=== PATIENT | male | born 2000 ===

== ENCOUNTER 2021-03-01 04:55 | Observation (INO) | payer MEDICAID, SELFPAY ==
[2021-03-01] VITALS (9 sets, daily range): BP systolic 111–136; BP diastolic 56–79; PULSE 62–84; RESP 16–19; TEMP 35.9–37.1; O2SAT 95–100; BMI 19.4; BMI 20.1
--- NOTE | ~2021-03-01 | CT_ITS ---
EXAMINATION: CT ABDOMEN AND PELVIS WITHOUT CONTRAST CLINICAL INFORMATION: Blood in stool COMPARISON: None TECHNIQUE: Multidetector volumetric imaging was performed from the superior aspect of the liver through the pubic symphysis. Sagittal and coronal reformatted images were obtained on the technologist's workstation. This CT examination was performed using dose optimization techniques as appropriate, variously including the following: *Automated exposure control *Adjustment of mA and/or kV according to patient size (this includes techniques or standardized protocols for targeted exams where dose is matched to indication/reason for exam; i.e. extremities or head) *Use of iterative reconstruction technique DLP: 327 mGy-cm FINDINGS: LUNG BASES: The visualized lung bases are unremarkable. LIVER, GALLBLADDER, AND BILIARY TREE: The liver is normal in size, shape, and attenuation. No focal hepatic lesion or biliary ductal dilatation is present. The gallbladder is unremarkable. PANCREAS: Unremarkable. SPLEEN: Unremarkable. ADRENAL GLANDS: Unremarkable. KIDNEYS AND URETERS: The kidneys are normal in size, shape, and attenuation. No hydronephrosis, hydroureter, or calculi seen. No perinephric stranding. BLADDER: Minimally distended and grossly unremarkable. GASTROINTESTINAL TRACT: Assessment for wall thickening in much of the colon from the hepatic flexure to the rectum is limited due to luminal collapse, though no significant pericolonic stranding is seen to strongly suggest a colitis. No evidence of bowel obstruction. No free fluid or free air is seen. ABDOMINAL WALL: No significant hernia is appreciated. LYMPH NODES: No lymphadenopathy is seen, though assessment is limited in the absence of intravenous contrast. VASCULAR: Unremarkable. PELVIC VISCERA: Unremarkable. OSSEOUS STRUCTURES: Unremarkable. CT/CT abdomen pelvis wo con IMPRESSION: Limited assessment for wall thickening in much of the colon due to luminal collapse; the possibility of a mild colitis therefore cannot be excluded. Otherwise, no acute findings identified in the abdomen/pelvis.
--- NOTE | 2021-03-01 05:34 | ED_ITS ---
HPI - Nausea/Vomiting/Diarrhea General Chief complaint: Nausea/Vomiting/Diarrhea Stated complaint: vomiting, diarrhea Time Seen by Provider: 03/01/21 05:32 Source: patient Mode of arrival: ambulatory Limitations: no limitations History of Present Illness HPI Narrative: 21-year-old male came in for evaluation of diarrhea and vomiting of black color. 21-year-old male woke up this morning with diarrhea patient describes it as a black color, and patient also had 1 episode of vomiting described as 1st was bloody then turned to black vomitus, patient is not taking any blood thinner, patient also declined alcohol abuse (only drinks socially), patient declined any recent travel, no recent antibiotic usage, no history of eating bad food, no sick contacts. Patient stated that yesterday he had headache had to take 2 Excedrin to relieve his headache. Related Data Allergies Allergy/AdvReac Type Severity Reaction Status Date / Time No Known Allergies Allergy Verified 03/01/21 05:41 [No Known Allergies*] Review of Systems Review of Systems: All other systems are reviewed and are negative Constitutional: Reports as per HPI and Reports no additional constitutional complaints Eyes: Reports as per HPI and Reports no additional eye complaints Reports system reviewed and no additional complaints, except as documented Cardiovascular: Reports as per HPI and Reports no additional cardiovascular complaints Respiratory: Reports as per HPI and Reports no additional respiratory complaints Gastrointestinal: Reports as per HPI and Reports no additional gastrointestinal complaints Genitourinary: Reports no additional female genitourinary complaints Musculoskeletal: Reports no additional musculoskeletal complaints Skin/Breast: Reports system reviewed and no additional complaints, except as docu Psychiatric: Reports no additional psychiatric complaints Endocrine: Reports no additional endocrine complaints Hematologic/Lymphatic: Reports no additional hematologic/lymphatic complaints Allergic/Immunologic: Reports no additional allergic/immunologic complaints Reports system reviewed and no additional complaints, except as documented and Reports Abnormal speech present [facility] Past Medical History Medical History (Updated 03/01/21 @ 06:54 by Flaca Tejada MD) Depression Social History Social History Advance Directives: No Advance Directives Information Provided: No Physical Exam Vital Signs: Vital Signs: Last Vital Signs Temp 98 F 03/01/21 05:39 Pulse 81 03/01/21 05:39 Resp 16 03/01/21 05:39 BP 114/58 L 03/01/21 05:39 Pulse Ox 98 03/01/21 05:39 Body Mass Index 20.1 Vital signs have been reviewed as appeared to be correct. Blood pressure normal. Heart rate normal. Respiration rate normal. Temperature normal. Oxygen saturation normal. Appearance: Alert. Oriented X3. No acute distress. Head: Normal external exam. Normocephalic. Atraumatic. No Ramirez signs noted. No raccoon eyes noted Eyes: PERRLA. EOMI. Conjunctiva and sclera normal. Eyelids normal. ENT: TM's Normal. Pharynx normal. Uvula midline. Moist mucous membranes. No trismus noted. No drooling noted. No muffled voice noted. Neck: Normal inspection. Neck supple. FROM. No adenopathy. Thyroid Normal. No m eningeal signs. No neck mass noted. CVS: Normal heart rate and rhythm. Heart sound normal. No murmurs noted. Pulses normal throughout. Respiratory: No respiratory distress. Painless inspiration. Breath sounds normal. No wheezes/rales/rhonchi noted. Chest nontender. No accessory muscle usage noted or decreased air movement noted. Abdomen: Soft and nontender. Bowel sounds normal in all 4 quadrants. No distention noted. No organomegaly noted. No visible injury noted. Rectal exam: Black stool guaiac positive Back: No CVA tenderness. Full range of motion noted. Skin: Skin warm and dry. Normal skin color. Normal skin turgor. No rashes/lesions/lacerations noted. Extremities: No lower extremity edema. Extremities exhibit normal range of motion. Extremities nontender. Neuro: Oriented X 3. No motor deficit. No sensory deficit. Reflexes normal. Course Course Course Narrative: Assessment and plan. 21-year-old male came in with rectal bleed (melena) patient was using Excedrin for headache yesterday. Mild anemia. Start the patient on Protonix, admit for further GI consultation, serial CBC. MDM - Nausea/Vomiting/Diarrhea Lab Data Attestation: I reviewed the patient's lab results. Result diagrams: 03/01/21 06:22 03/01/21 06:22 Labs: Lab Results 03/01/21 03/01/21 03/01/21 Range/Units 05:53 05:53 06:22 WBC 11.1 H (4.8-10.8) X10*3/uL RBC 4.91 (4.60-5.80) X10*6/uL Hgb 13.8 L (14.0-18.0) g/dl Hct 41.1 L (42-52) % MCV 83.7 (80-98) fL MCH 28.1 (27.0-33.0) pg MCHC 33.6 (31.0-36.0) g/dl RDW 13.0 (11.0-16.0) % Plt Count 304 (160-400) X10*3/uL MPV 9.2 L (9.4-12.4) fL Immature Gran % (Auto) 0.4 (0.0-0.4) % Neut % (Auto) 81.9 H (45-73) % Lymph % (Auto) 10.2 L (20-40) % [place] % (Auto) 6.7 (2-11) % Eos % (Auto) 0.5 (0-4) % Baso % (Auto) 0.3 (0-2) % Lymph # (Auto) 1.1 L (1.2-4.9) X10*3/uL [place] # (Auto) 0.8 (0.1-1.2) X10*3/uL Eos # (Auto) 0.1 (0.0-0.4) X10*3/uL Baso # (Auto) 0.0 (0.0-0.2) X10*3/uL Abs Immat Gran (auto) 0.05 H (0.00-0.03) X10*3/uL Absolute Neuts (auto) 9.1 H (2.0-8.3) X10*3/uL Absolute Nucleated RBC 0.000 (0.0-0.012) X10*3/uL Nucleated RBC % (auto) 0.0 (0.0-0.2) /100WBC Sodium (135-145) mmol/L Potassium (3.3-5.1) mmol/L Chloride (96-108) mmol/L Carbon Dioxide (22-29) mmol/L Anion Gap (12-20) BUN (9-16) mg/dL Creatinine (0.5-1.4) mg/dL Estim Creat Clear Calc Estimated GFR Random Glucose (60-115) mg/dL Calcium (8.4-10.2) mg/dL Total Bilirubin (0.0-1.0) mg/dL Direct Bilirubin (0.0-0.5) mg/dL AST (5-37) U/L ALT (0-40) U/L Alkaline Phosphatase (39-117) U/L Total Protein (6.5-8.0) g/dL Albumin (3.5-5.0) g/dL Lipase (8-78) U/L Urine Color YELLOW Urine Appearance CLEAR Urine pH 6.5 (5.0-8.0) Ur Specific [place] 1.020 (1.005-1.025) Urine Protein NEG (NEG-TRACE) MG/DL Urine Glucose (UA) NEG (NEG) MG/DL Urine Ketones >=80 (NEG) MG/DL Urine Blood NEG (NEG) Urine Nitrite NEG (NEG) Ur Leukocyte Esterase NEG (NEG) Stool Occult Blood POSITIVE (NEGATIVE) 03/01/21 Range/Units 06:22 WBC (4.8-10.8) X10*3/uL RBC (4.60-5.80) X10*6/uL Hgb (14.0-18.0) g/dl Hct (42-52) % MCV (80-98) fL MCH (27.0-33.0) pg MCHC (31.0-36.0) g/dl RDW (11.0-16.0) % Plt Count (160-400) X10*3/uL MPV (9.4-12.4) fL Immature Gran % (Auto) (0.0-0.4) % Neut % (Auto) (45-73) % Lymph % (Auto) (20-40) % [place] % (Auto) (2-11) % Eos % (Auto) (0-4) % Baso % (Auto) (0-2) % Lymph # (Auto) (1.2-4.9) X10*3/uL [place] # (Auto) (0.1-1.2) X10*3/uL Eos # (Auto) (0.0-0.4) X10*3/uL Baso # (Auto) (0.0-0.2) X10*3/uL Abs Immat Gran (auto) (0.00-0.03) X10*3/uL Absolute Neuts (auto) (2.0-8.3) X10*3/uL Absolute Nucleated RBC (0.0-0.012) X10*3/uL Nucleated RBC % (auto) (0.0-0.2) /100WBC Sodium 138 (135-145) mmol/L Potassium 4.3 (3.3-5.1) mmol/L Chloride 103 (96-108) mmol/L Carbon Dioxide 27 (22-29) mmol/L Anion Gap 12 (12-20) BUN 25 H (9-16) mg/dL Creatinine 0.78 (0.5-1.4) mg/dL Estim Creat Clear Calc 127.1 Estimated GFR > 60 Random Glucose 89 (60-115) mg/dL Calcium 9.5 (8.4-10.2) mg/dL Total Bilirubin 0.6 (0.0-1.0) mg/dL Direct Bilirubin 0.3 (0.0-0.5) mg/dL AST 22 (5-37) U/L ALT 26 (0-40) U/L Alkaline Phosphatase 48 (39-117) U/L Total Protein 7.3 (6.5-8.0) g/dL Albumin 4.3 (3.5-5.0) g/dL Lipase 20 (8-78) U/L Urine Color Urine Appearance Urine pH (5.0-8.0) Ur Specific [place] (1.005-1.025) Urine Protein (NEG-TRACE) MG/DL Urine Glucose (UA) (NEG) MG/DL Urine Ketones (NEG) MG/DL Urine Blood (NEG) Urine Nitrite (NEG) Ur Leukocyte Esterase (NEG) Stool Occult Blood (NEGATIVE) Imaging Data CT scan - abdomen: Radiologist's impression: Limited assessment for wall thickening in much of the colon due to luminal collapse; the possibility of a mild colitis therefore cannot be excluded. Otherwise, no acute findings identified in the abdomen/pelvis. Discharge Plan Discharge Clinical Impression: Melena Patient Disposition: Admitted As Inpatient
[2021-03-01 06:07] LABS: Glucose Urine UA NEG (NEG); Leukocyte Esterase Urine NEG (NEG); Nitrite Urine NEG (NEG); PH 6.5 (5.0-8.0); Urine Blood NEG (NEG); Urine Ketones >=80 MG/DL (NEG); Urine Protein NEG (NEG-TRACE)
[2021-03-01 06:08] LABS: OBS Int Ctl Valid YES; OBS1 POSITIVE (NEGATIVE)
[2021-03-01 06:09] LABS: Appearance Urine CLEAR; Color Urine YELLOW
[2021-03-01] MEDS: 0.9 % Sodium Chloride 1,000 ML 999 ML IVCONT (06:24)
[2021-03-01 06:28] LABS: Basophils Percent Auto 0.3 % (0-2); Eosinophils Absolute Auto 0.1 X10*3/uL (0.0-0.4); Eosinophils Percent Auto 0.5 % (0-4); Hematocrit 41.1 % (42-52); Hemoglobin 13.8 g/dl (14.0-18.0); Imm Gran Abs Auto 0.05 X10*3/uL (0.00-0.03); Imm Gran Pct Auto 0.4 % (0.0-0.4); Lymphocytes Absolute Auto 1.1 X10*3/uL (1.2-4.9); Lymphocytes Percent Auto 10.2 % (20-40); MANUAL DIFF FLAG NO; Mean Corpuscular HGB Conc 33.6 g/dl (31.0-36.0); Mean Corpuscular Hemoglobin 28.1 pg (27.0-33.0); Mean Corpuscular Volume 83.7 fL (80-98); Mean Platelet Volume 9.2 fL (9.4-12.4); Monocytes Absolute Auto 0.8 X10*3/uL (0.1-1.2); Monocytes Percent Auto 6.7 % (2-11); Neutrophils Absolute Auto 9.1 X10*3/uL (2.0-8.3); Neutrophils Percent Auto 81.9 % (45-73); Platelet Count 304 X10*3/uL (160-400); Red Blood Count 4.91 X10*6/uL (4.60-5.80); White Blood Count 11.1 X10*3/uL (4.8-10.8)
[2021-03-01 06:51] LABS: Alanine Aminotransferase 26 U/L (0-40); Albumin Level 4.3 g/dL (3.5-5.0); Alkaline Phosphatase 48 U/L (39-117); Anion Gap 12 (12-20); Aspartate Amino Transferase 22 U/L (5-37); Bilirubin Direct 0.3 mg/dL (0.0-0.5); Bilirubin Total 0.6 mg/dL (0.0-1.0); Blood Urea Nitrogen 25 mg/dL (9-16); Calcium 9.5 mg/dL (8.4-10.2); Carbon Dioxide 27 mmol/L (22-29); Chloride 103 mmol/L (96-108); Creatinine Clr Calc Pharmacy 127.1; Estimated Glomerular Filt Rate > 60; Glucose Random 89 mg/dL (60-115); Lipase 20 U/L (8-78); Potassium 4.3 mmol/L (3.3-5.1); Sodium 138 mmol/L (135-145); Total Protein 7.3 g/dL (6.5-8.0)
[2021-03-01] MEDS: Pantoprazole Sodium 40 MG/10 ML VIAL IVPUSH (07:18)
--- NOTE | 2021-03-01 07:43 | PC.NURSE ---
report taken from Moni POTTS. Pt in room, awake, resting comfortably. family at bed side. pt awaiting inpatient bed.
--- NOTE | 2021-03-01 08:13 | PM.IMHP ---
History of Present Illness Date of Service: 03/01/21 Chief Complaint: Diarrhea 21-year-old male with history of depression for which he takes sertraline. He is otherwise healthy. He come to the emergency room this morning because he has been having multiple episode of diarrhea at that he describes as a dark waterly stool with no associated abdiel blood, this is associated with nausea vomiting on multiple occasion--He has no pain. Yesterday he said he ate same things as rest of the family and no one else is sick. At some point he stated that he was vomiting so much that he started vomiting bright red blood. Workup in the ED has included a CT of the abdomen and pelvis which showed no evidence of a colitis. He has no sick contact, no recent travel and no recent use of antibiotics. His WBC is mildly elevated at 11. There is no fever he has not had any further episode of diarrhea since being in the emergency room. He has did say that he took some antidiarrhea medication although he is not able to tell me exactly what that is. His hemoglobin is 13.8. He has never had something like this before Review of Systems Review of Systems: Gen: no fever Resp: no sob, no cough CV: no chest, no ROBBINS, no leg edema GI: +n/v, no abd pain, diarhea Neuro: No confusion Yes all other systems are reviewed and are negative [facility] Medical History Depression Functional capacity: independent ambulation Pertinent family history: No family history of inflammatory bowel disease. Social History Advance Directives: No Advance Directives Information Provided: No Meds Allergies Allergy/AdvReac Type Severity Reaction Status Date / Time No Known Allergies Allergy Verified 03/01/21 05:41 [No Known Allergies*] Active Medications: Current Medications Generic Name Dose Route Start Last Admin Trade Name Freq PRN Reason Stop Dose Admin Pharmacy Consult 1 each 03/01/21 06:51 Consult Rx Perform Med Rec MISCELLANE ONCE PRN Consult order Home Medications Medication Instructions Recorded Confirmed Last Taken Type sertraline 1 tab PO DAILY 03/01/21 03/01/21 02/28/21 History Physical Exam Vital Signs and Narrative: Vital Signs: Last Vital Signs Temp 98 F 03/01/21 05:39 Pulse 84 06/01/21 07:17 Resp 16 03/01/21 07:43 BP 122/62 03/01/21 07:17 Pulse Ox 98 03/01/21 07:43 Body Mass Index 20.1 Const: Other: Constitutional Awake and Alert, No apparent distress HEENT tobithin nomral Neck Supple, No lymphadenopathy Cardiovascular RRR, No M/R/G, S1 S2, No S3 S4, No pedal edema Respiratory Lungs clear, No respiratory distress Gastrointestinal Non tender, Non-distended, rectal exam defered Skin No rash Neurological Alert & oriented x3 Psychological Appropriate affect Results Labs CBC and Chem 7: 03/01/21 06:22 03/01/21 06:22 Labs: Laboratory Results - last 24 hr 03/01/21 03/01/21 03/01/21 05:53 05:53 06:22 MCV 83.7 MCH 28.1 MCHC 33.6 RDW 13.0 Plt Count 304 MPV 9.2 L Immature Gran % (Auto) 0.4 Neut % (Auto) 81.9 H Lymph % (Auto) 10.2 L [place] % (Auto) 6.7 Eos % (Auto) 0.5 Baso % (Auto) 0.3 Lymph # (Auto) 1.1 L [place] # (Auto) 0.8 Eos # (Auto) 0.1 Baso # (Auto) 0.0 Abs Immat Gran (auto) 0.05 H Absolute Neuts (auto) 9.1 H Absolute Nucleated RBC 0.000 Nucleated RBC % (auto) 0.0 Anion Gap Estim Creat Clear Calc Estimated GFR Random Glucose Calcium Total Bilirubin Direct Bilirubin AST ALT Alkaline Phosphatase Total Protein Albumin Lipase Urine Color YELLOW Urine Appearance CLEAR Urine pH 6.5 Ur Specific [place] 1.020 Urine Protein NEG Urine Glucose (UA) NEG Urine Ketones >=80 Urine Blood NEG Urine Nitrite NEG Ur Leukocyte Esterase NEG Stool Occult Blood POSITIVE 03/01/21 06:22 MCV MCH MCHC RDW Plt Count MPV Immature Gran % (Auto) Neut % (Auto) Lymph % (Auto) [place] % (Auto) Eos % (Auto) Baso % (Auto) Lymph # (Auto) [place] # (Auto) Eos # (Auto) Baso # (Auto) Abs Immat Gran (auto) Absolute Neuts (auto) Absolute Nucleated RBC Nucleated RBC % (auto) Anion Gap 12 Estim Creat Clear Calc 127.1 Estimated GFR > 60 Random Glucose 89 Calcium 9.5 Total Bilirubin 0.6 Direct Bilirubin 0.3 AST 22 ALT 26 Alkaline Phosphatase 48 Total Protein 7.3 Albumin 4.3 Lipase 20 Urine Color Urine Appearance Urine pH Ur Specific [place] Urine Protein Urine Glucose (UA) Urine Ketones Urine Blood Urine Nitrite Ur Leukocyte Esterase Stool Occult Blood Imaging Radiologist's Impressions: Impressions Abdomen/Pelvis CT 03/01/21 05:32 IMPRESSION: Limited assessment for wall thickening in much of the colon due to luminal collapse; the possibility of a mild colitis therefore cannot be excluded. Otherwise, no acute findings identified in the abdomen/pelvis. Assessment and Plan (1) Melena: Status: Acute 29-year-old male with nausea vomiting and diarrhea positive occult blood and no evidence of a colitis on the CT scan. Differential diagnosis inflammatory bowel disease, food poisoning. Plan: Admit to observation, hydrate, repeat hemoglobin and hematocrit. Check ESR and CRP. Check C dif. Clear liquid diet. GI consult. Low risk for DVT , encourage ambulation. Continue sertraline for depression.
[2021-03-01] MEDS: Dextrose 5 % and 0.45 % NaCl 1,000 ML 100 ML IVCONT ×2 (10:29→20:53)
--- NOTE | 2021-03-01 12:30 | PC.NURSE ---
attempted to call [facility] for report on pt, no answer.
--- NOTE | 2021-03-01 14:15 | PM.GICN ---
History of Present Illness Data of Consult Service Date: 03/01/21 Requesting physician: Ken Khanna Primary Care Provider: Montse Brar DO HPI Reason for consult: melena 21-year-old male with history of depression being seen for assessment of hematemesis and GI symptoms He has several episodes of vomiting overnight with multiple episodes of dark colored diarrheal stools. He has nausea. He has no sick contacts, no recent travel and no recent use of antibiotics. denies fevers or chills he denied abdominal pain prior to this he was well and denied any symptoms no GERD or dsyphagia not taking nsaids or PPI CT of the abdomen and pelvis which showed no evidence of a colitis labs with borderline HGB Today at time of interview he says he feels well, and wants to eat, but no abdominal pain, still has black stool per his report. Review of Systems Review of Systems: Constitutional : No Weight loss, No Fever, No Chills ENT/Mouth : No sore throat, No Rhinorrhea Eyes: No Swelling, No Redness Cardiovascular : No Chest Pain, No SOB, No Edema Respiratory : No Cough, No Sputum, No Wheezing Gastrointestinal : see HPI Genitourinary : NO Dysuria, No Urinary Frequency, No Hematuria, No Urgency Musculoskeletal : No joint pain, No Myalgias, No Joint Swelling Skin : No Skin Lesions, No rash Neuro : No Weakness, No Numbness, No Dizziness, No Headache Psych : No Anxiety/Panic, No Depression Heme/Lymph: No Bruising, No Lymphadenopathy Endocrine : No Polyuria, No Polydipsia All other systems reviewed and are negative. [facility] Past Medical History Medical History Depression Functional capacity: independent ambulation Family History Pertinent family history: No family history of inflammatory bowel disease. Social History Social History Patient Tobacco Use Status: Never used Tobacco Smoked in Last 30 Days: No Use of substances other than those prescribed or required for medical reasons: Yes Substance Use Type: Marijuana Advance Directives: No Advance Directives Information Provided: No Meds Allergies Allergy/AdvReac Type Severity Reaction Status Date / Time No Known Allergies Allergy Verified 03/01/21 05:41 [No Known Allergies*] Active Medications: Current Medications Generic Name Dose Route Start Last Admin Trade Name Rosmery PRN Reason Stop Dose Admin Dextrose/Sodium Chloride 1,000 mls @ 100 mls/hr 03/01/21 11:00 03/01/21 10:29 D51/2ns IVCONT 100 mls/hr .Q10H BRUCE Administration Ondansetron HCl 4 mg 03/01/21 10:23 Ondansetron Hcl 4 Mg/2 Ml Vial IVPUSH Q8H PRN Nausea and Vomiting Pharmacy Consult 1 each 03/01/21 06:51 Consult Rx Perform Med Rec MISCELLANE ONCE PRN Consult order Sodium Chloride 3 ml 03/01/21 16:00 0.9 % Sodium Chloride Flush 3 Ml Syringe IVFLUSH QSHIFT BRUCE Zolpidem Tartrate 5 mg 03/01/21 10:23 Zolpidem Tartrate 5 Mg Tablet PO BEDTIME PRN Insomnia Home Medications Medication Instructions Recorded Confirmed Last Taken Type sertraline 1 tab PO DAILY 03/01/21 03/01/21 02/28/21 History Physical Exam Vital Signs: Vital Signs: Last Vital Signs Temp 97.6 F 03/01/21 13:53 Pulse 74 03/01/21 13:53 Resp 16 03/01/21 13:53 BP 136/77 03/01/21 13:53 Pulse Ox 98 03/01/21 13:53 Body Mass Index 20.1 Const: Other: Constitutional Awake and Alert, No apparent distress HEENT winthin normal limits, no anemia or redness of eyes Neck Supple, No lymphadenopathy Cardiovascular RRR, No M/R/G, S1 S2, No S3 S4, No pedal edema Respiratory Lungs clear, No respiratory distress Gastrointestinal Non tender, Non-distended, no masses or organomegaly, BS pos Skin No rash Neurological Alert & oriented x3 Psychological Appropriate affect Extrem: General: Yes normal to inspection Results Labs CBC & Chem 7: 03/01/21 06:22 03/01/21 06:22 Labs: Short CBC 03/01/21 Range/Units 06: WBC 11.1 H (4.8-10.8) X10*3/uL Hgb 13.8 L (14.0-18.0) g/dl Hct 41.1 L (42-52) % Plt Count 304 (160-400) X10*3/uL [facility] 03/01/21 06:22 Sodium 138 Potassium 4.3 Chloride 103 Carbon Dioxide 27 BUN 25 H Creatinine 0.78 Calcium 9.5 Liver Function 03/01/21 Range/Units 06:22 Total Bilirubin 0.6 (0.0-1.0) mg/dL Direct Bilirubin 0.3 (0.0-0.5) mg/dL AST 22 (5-37) U/L ALT 26 (0-40) U/L Alkaline Phosphatase 48 (39-117) U/L Albumin 4.3 (3.5-5.0) g/dL Urine 03/01/21 Range/Units 05:53 Urine Color YELLOW Urine Appearance CLEAR Urine pH 6.5 (5.0-8.0) Ur Specific [place] 1.020 (1.005-1.025) Urine Protein NEG (NEG-TRACE) MG/DL Urine Glucose (UA) NEG (NEG) MG/DL Imaging CT scan - abdomen: Attestation: I personally reviewed and interpreted this imaging study as follows: My impression: normal but without contrast, limiting visualization Assessment and Plan (1) Melena: Status: Acute (2) Hematemesis: Status: Acute 1/ Suspect he has gastroenteritis with MW tear and susequent melena, however he is very anxious about going home and not having further work up unless change in clinical condition, ddx: PUD, gastritis, dieulafoy lesions, esophagitis PLAN: 1/advance diet and let eat till midnight then NPO 2/ can use PPI in the interim 3/ transfuse if HGB <7 g/dl 4/ EGD tomorrow Procedures Date of Service Date of Service: 03/01/21
[2021-03-01 19:02] LABS: CDIFF Ag Negative (Negative); CDIFF Internal ctrl Dots and bkg OK (V); CDiff Toxin Negative (Negative)
[2021-03-01] MEDS: 0.9 % Sodium Chloride Flush 3 ML SYRINGE IVFLUSH (23:41)
[2021-03-02] VITALS (12 sets, daily range): BP systolic 84–128; BP diastolic 33–59; PULSE 62–80; RESP 14–18; TEMP 36–36.8; O2SAT 97–100
[2021-03-02] MEDS: Dextrose 5 % and 0.45 % NaCl 1,000 ML 100 ML IVCONT (06:05)
--- NOTE | 2021-03-02 08:46 | MHC.CM.PN ---
CM met with Patient and his Mother at bedside and addressed CHAVEZ, providing Patient with the original and placing a copy on the chart. Patient lives with his Parents and home/no services is the goal. CM has initiated and will follow for dc planning.
[2021-03-02 10:49] LABS: COVID-19 Test Negative (Negative)
--- NOTE | 2021-03-02 12:05 | P.CONAN_ITS ---
[facility] Active Problems Active Problems: All Active Problems (Updated 03/01/21 @ 16:34 by Cathy Coleman MD) Hematemesis (Acute) Melena (Acute) Past Medical History Medical History Depression Functional capacity: independent ambulation Social History Social History Patient Tobacco Use Status: Never used Tobacco Smoked in Last 30 Days: No Use of substances other than those prescribed or required for medical reasons: Yes Substance Use Type: Marijuana Substance Use Frequency: Daily Are you DNR?: No Advance Directives: No Advance Directives Information Provided: No service: No Current occupational status: employed Meds Allergies Allergy/AdvReac Type Severity Reaction Status Date / Time No Known Allergies Allergy Verified 03/01/21 05:41 [No Known Allergies*] Active Medications: Current Medications Generic Name Dose Route Start Last Admin Trade Name Freq PRN Reason Stop Dose Admin Dextrose/Sodium Chloride 1,000 mls @ 100 mls/hr 03/01/21 11:00 03/02/21 06:05 D51/2ns IVCONT 100 mls/hr .Q10H BRUCE Administration Ondansetron HCl 4 mg 03/01/21 10:23 Ondansetron Hcl 4 Mg/2 Ml Vial IVPUSH Q8H PRN Nausea and Vomiting Pharmacy Consult 1 each 03/01/21 06:51 Consult Rx Perform Med Rec MISCELLANE ONCE PRN Consult order Sodium Chloride 3 ml 03/01/21 16:00 03/02/21 08:05 0.9 % Sodium Chloride Flush 3 Ml Syringe IVFLUSH Not Given QSHIFT BRUCE Zolpidem Tartrate 5 mg 03/01/21 10:23 Zolpidem Tartrate 5 Mg Tablet PO BEDTIME PRN Insomnia Home Medications Medication Instructions Recorded Confirmed Last Taken Type sertraline 1 tab PO DAILY 03/01/21 03/01/21 02/28/21 History Exam Exam Date and Time: March 02, 2021 1205 Height,Weight and Vital Signs: Height 5 ft 8 in Weight 60 kg Last Vital Signs Temp 97.4 F 03/02/21 11:17 Pulse 70 03/02/21 11:17 Resp 16 03/02/21 11:17 BP 112/57 L 03/02/21 11:17 Pulse Ox 100 03/02/21 11:17 Pertinent Lab Results Pertinent Lab Results: Laboratory Tests 03/01/21 03/01/21 03/01/21 05:53 05:53 06:22 WBC 11.1 H RBC 4.91 Hgb 13.8 L Hct 41.1 L MCV 83.7 MCH 28.1 MCHC 33.6 RDW 13.0 Plt Count 304 MPV 9.2 L Immature Gran % (Auto) 0.4 Neut % (Auto) 81.9 H Lymph % (Auto) 10.2 L Rains % (Auto) 6.7 Eos % (Auto) 0.5 Baso % (Auto) 0.3 Lymph # (Auto) 1.1 L Rains # (Auto) 0.8 Eos # (Auto) 0.1 Baso # (Auto) 0.0 Abs Immat Gran (auto) 0.05 H Absolute Neuts (auto) 9.1 H Absolute Nucleated RBC 0.000 Nucleated RBC % (auto) 0.0 Sodium Potassium Chloride Carbon Dioxide Anion Gap BUN Creatinine Estim Creat Clear Calc Estimated GFR Random Glucose Calcium Total Bilirubin Direct Bilirubin AST ALT Alkaline Phosphatase Total Protein Albumin Lipase Urine Color YELLOW Urine Appearance CLEAR Urine pH 6.5 Ur Specific [place] 1.020 Urine Protein NEG Urine Glucose (UA) NEG Urine Ketones >=80 Urine Blood NEG Urine Nitrite NEG Ur Leukocyte Esterase NEG Stool Occult Blood POSITIVE C. difficile Toxin A&B C. difficile Antigen C. difficile Interpret COVID-19 ([facility]) COVID-19 Clin Com 03/01/21 03/01/21 03/02/21 06:22 Unknown 10:20 WBC RBC Hgb Hct MCV MCH MCHC RDW Plt Count MPV Immature Gran % (Auto) Neut % (Auto) Lymph % (Auto) Rains % (Auto) Eos % (Auto) Baso % (Auto) Lymph # (Auto) Rains # (Auto) Eos # (Auto) Baso # (Auto) Abs Immat Gran (auto) Absolute Neuts (auto) Absolute Nucleated RBC Nucleated RBC % (auto) Sodium 138 Potassium 4.3 Chloride 103 Carbon Dioxide 27 Anion Gap 12 BUN 25 H Creatinine 0.78 Estim Creat Clear Calc 127.1 Estimated GFR > 60 Random Glucose 89 Calcium 9.5 Total Bilirubin 0.6 Direct Bilirubin 0.3 AST 22 ALT 26 Alkaline Phosphatase 48 Total Protein 7.3 Albumin 4.3 Lipase 20 Urine Color Urine Appearance Urine pH Ur Specific [place] Urine Protein Urine Glucose (UA) Urine Ketones Urine Blood Urine Nitrite Ur Leukocyte Esterase Stool Occult Blood C. difficile Toxin A&B Negative C. difficile Antigen Negative C. difficile Interpret SEE NOTE COVID-19 ([facility]) Negative COVID-19 Clin Com See Note Airway Mallampati Class: II TM Dist: >3cm Neck ROM: Full Heart: RRR Lungs: CTA Assessment and Plan Assessment Anesthesia Assessment: Anesthesia Plan Discussed and Chart Reviewed Final Anesthetic Review NPO: Yes ASA Class: II Final Preanesthetic Review: No Changes in Pt Med Stat and Consent Obtained/Reviewed Patient Risk: Intermediate Procedure Risk: Intermediate Anesthetic Plan Anesthetic Plan: MAC: Disposition: Standard PACU
--- NOTE | 2021-03-02 12:15 | MHC.SHP ---
Pre-Procedural Eval Section A The patient is an INPATIENT: Yes The History & Physical has been completed within 30 days and I have reviewed it.: Yes Section B Chief Complaint: GIB Allergies: Allergies Allergy/AdvReac Type Severity Reaction Status Date / Time No Known Allergies Allergy Verified 03/01/21 05:41 [No Known Allergies*] Plan Diagnosis/Plan: Unchanged I have reviewed the history and physical and performed a pertinent physical examination on my patient. No changes have occurred unless specified.
--- NOTE | 2021-03-02 12:16 | PM.OP ---
Brief Operative Note Date of Service: 03/02/21 Pre-op diagnosis: melena, nausea, vomiting Post-op diagnosis: same Procedure: see op note Surgeon: Cathy Coleman MD Anesthesia: MAC Was an Computer Aided Design Operator used for this Procedure?: No Estimated blood loss (mL): 0 Condition: stable Disposition: PACU
--- NOTE | 2021-03-02 12:16 | W.PM.OPN ---
Operative Note Operative Note Date of Service: 03/02/21 Narrative: Procedure Description: EGD FLEXIBLE TRANSORAL UPPER GASTROINTESTINAL ENDOSCOPY UPPER ENDOSCOPY Consent: Indications for the procedure and potential complications of bleeding, perforation, reaction to medications and missed diagnosis were discussed with the patient and informed consent was obtained. Instrument: Olympus GIF H 190 J mid size upper endoscope Monitoring: Vital signs and clinical assessment, continuous EKG monitoring, Pulse oximetry, Carbon Dioxide monitoring and blood pressure monitoring were done throughout the procedure. Procedure: The patient was placed in the left lateral decubitis position and pre-procedure medications were administered and a bite block was placed. The endoscope was inserted into the mouth and advanced under direct vision to the third part of duodenum. A careful inspection was made as the upper endoscope was withdrawn including a retroflexed examination of the proximal stomach; Findings and interventions are described below. Findings: Larynx:normal Esophagus: GE junction at 38 cm, diaphragm hiatus at 38 cm, moderately severe erosive esophagitis LA grade B, with josue grade IIa lesion noted with visible vessel at the GEJ. It was not bleeding, 3 clips applied with good effect. There was a small sliding hiatal hernia noted about 2 cm. Stomach: Patchy gastric erythema. Grade 3 flap valve on retroflexed examination of the cardia. Duodenum: Normal bulb and descending duodenum, Intervention: Clips applied to visible vessel as above Impression/Findings: esophagitis visible vessel s/p clipping PLAN: d/c home with pantoprazole 40 mg bid for at least 3 months clears today and advance diet tomorrow will need check for h pylori at future date, repeat EGD 3 months to eval for barretts esophagus as well
--- NOTE | 2021-03-02 12:23 | PM.DS ---
DS: Providers Provider Date of Service: 03/02/21 Date of admission: 03/01/21 08:12 Primary care physician: Montse Brar DO Consults: 03/01/21 10:23 Consult to Gastroenterology Routine Consulting Provider: Cathy Coleman Reason for consultation: GIB Has provider been notified: No DS: Diagnosis Discharge Diagnosis (1) Melena: Status: Acute (2) Hematemesis: Status: Acute DS: Medications Discharge Medications Home Medications: Home Medications Medication Instructions Recorded Confirmed sertraline 1 tab PO DAILY 03/01/21 03/01/21 DS: Summary Hospital Course Hospital Course: 21-year-old male with history of depression for which he takes sertraline. He is otherwise healthy. He come to the emergency room this morning because he has been having multiple episode of diarrhea at that he describes as a dark waterly stool with no associated abdiel blood, this is associated with nausea vomiting on multiple occasion--He has no pain. Yesterday he said he ate same things as rest of the family and no one else is sick. At some point he stated that he was vomiting so much that he started vomiting bright red blood. Workup in the ED has included a CT of the abdomen and pelvis which showed no evidence of a colitis. He has no sick contact, no recent travel and no recent use of antibiotics. His WBC is mildly elevated at 11. There is no fever he has not had any further episode of diarrhea since being in the emergency room. He has did say that he took some antidiarrhea medication although he is not able to tell me exactly what that is. His hemoglobin is 13.8. He has never had something like this before Hospital course: Patient was observed overnight and has not further vomitting of blood, no abdominal pain and no more diarrhea. C dif was negative. GI (Dr. Coleman) performed EGD with the following findings: Larynx:normal Esophagus: GE junction at 38 cm, diaphragm hiatus at 38 cm, moderately severe erosive esophagitis LA grade B, with josue grade IIa lesion noted with visible vessel at the GEJ. It was not bleeding, 3 clips applied with good effect. There was a small sliding hiatal hernia noted about 2 cm. Stomach: Patchy gastric erythema. Grade 3 flap valve on retroflexed examination of the cardia. Duodenum: Normal bulb and descending duodenum. He will have liquid diet today and regular diet tomorrow. PPI is being prescribed and to follow up with Dr. Coleman Time Spent with Patient Time attestation: Total time spent providing and/or coordinating discharge services: Discharge coordination time: Greater than 30 minutes Quality: Stroke Does the patient have a stroke diagnosis?: No Physical Exam Vital Signs: Vital Signs: Last Vital Signs Temp 97.4 F 03/02/21 11:17 Pulse 70 03/02/21 11:17 Resp 16 03/02/21 11:17 BP 112/57 L 03/02/21 11:17 Pulse Ox 100 03/02/21 11:17 Body Mass Index 20.1 Constitutional Awake and Alert, No apparent distress Neck Supple, No lymphadenopathy Cardiovascular RRR, No M/R/G, S1 S2, No S3 S4, No pedal edema Respiratory Lungs clear, No respiratory distress Gastrointestinal Non tender, Non-distended Skin No rash Neurological Alert & oriented x3 Psychological Appropriate affect DS: Data Data Completed and Pending Labs on day of discharge: Laboratory Results - last 24 hr 03/01/21 03/02/21 Unknown 10:20 C. difficile Toxin A&B Negative C. difficile Antigen Negative C. difficile Interpret SEE NOTE COVID-19 ([facility]) Negative COVID-19 Clin Com See Note Discharge Plan Discharge Anticipated Discharge Date/Time: 03/02/21 12:21 Patient Disposition: Home, Self-Care Discharge Diagnosis: Esophagitis Referrals: Cathy Coleman MD [Physician] - 1 Week Montse Brar DO [Primary Care Provider] - 1 Week Discharge Medications: New omeprazole magnesium [Prilosec OTC] 20 mg tablet,delayed release (DR/EC) 20 mg PO DAILY 42 Days Qty: 42 RF: 0 Continued sertraline 100 mg tablet 1 tab PO DAILY RF: 0 Discharge Orders: Discharge Order (Routine); Ordered 03/02/21 Ordered By: Ken Khanna Diet: advance to usual diet Activity on Discharge: As tolerated Stand Alone Forms: Patient Portal Discharge page Care Plan Goals: prevent rehospitalization Health Concerns: vomitting blood Plan of Treatment: Take Prilosec as recommended, avoid aspirin and follow up with Dr. Coleman Eat liquid diet today and start eating regular food tomorrow, avoid alcohol Assessment: see above
[2021-03-02 14:25] LABS: Hematocrit 34.8 % (42-52); Hemoglobin 11.5 g/dl (14.0-18.0); Mean Corpuscular Volume 84.7 fL (80-98); Mean Platelet Volume 9.2 fL (9.4-12.4); Platelet Count 263 X10*3/uL (160-400); Red Blood Count 4.11 X10*6/uL (4.60-5.80); Red Cell Distribution Width 13.2 % (11.0-16.0)
== END 2021-03-02 17:58 | disposition home or self-care (01) ==
LOC: HO.ED 06:54 → HO.EDOVER 09:07 → HO.IMC 12:14
PROVIDERS: Internal Medicine Gastroenterology; Admitting Provider Internal Medicine; Emergency Provider Emergency Medicine; PCP Family Medicine; Visit Provider Internal Medicine
PROC: 0DJ08ZZ Inspection of Upper Intestinal Tract, Via Natural or Artificial Opening Endoscopic (ICD-10-PCS; CPT 43235; principal; 2021-03-02 14:40)
DX: K92.1 Melena (principal); K92.0 Hematemesis; R19.7 Diarrhea, unspecified; K22.11 Ulcer of esophagus with bleeding; K27.9 Peptic ulcer, site unspecified, unspecified as acute or chronic, without hemorrhage or perforation; K44.9 Diaphragmatic hernia without obstruction or gangrene; K29.70 Gastritis, unspecified, without bleeding; K22.8 Other specified diseases of esophagus; F32.9 Major depressive disorder, single episode, unspecified; F12.10 Cannabis abuse, uncomplicated; Z20.822 Contact with and (suspected) exposure to COVID-19; Z11.0 Encounter for screening for intestinal infectious diseases; Z79.899 Other long term (current) drug therapy
CPT/HCPCS: 43235; 36415; 74176; 80048; 80076; 81003; 82272; 83690; 85025; 85027; 87324; 87449; 87635; 96361; 96365; 96366; 96375; 99219; 99285

== ENCOUNTER → 2021-12-26 09:20 | Outpatient (REF) | payer MEDICAID, SELFPAY ==
--- NOTE | 2021-12-26 09:30 | CA_ITS ---
Transthoracic Echocardiogram Patient (Last, First, Middle): Arash BorjalloGab S Gender: Male Date of : 2000 Age: 21 Procedure Date: 12/26/2021 Procedure Type: Transthoracic Echocardiogram Location: OP Height: 172.72 cm Weight: 62.14 kg BSA: 1.74 m2 Heart Rate: bpm BP: 112 / 70 mmHg Basketball Assembler: HIRA Referring MD: Montse Brar DO Symptoms: I49.9 CA ARRHYTHMIA Study Quality: Fair ECG Rhythm: Sinus Conclusions: - The left ventricular systolic function is normal. The calculated ejection fraction is 64% by biplane method. - There is mild tricuspid valve regurgitation. Findings Left Ventricle Normal left ventricular cavity size. There is normal left ventricular wall thickness. The left ventricular systolic function is normal. The calculated ejection fraction is 64% by biplane method. There is no evidence of regional wall motion abnormalities. Diastolic function is normal for age. Right Ventricle Normal right ventricular cavity size and systolic function. Atria Both atria are normal in size. Aortic Valve There is a normal trileaflet aortic valve. There is no aortic valve stenosis. There is no aortic valve regurgitation. Mitral Valve The mitral valve appears normal. There is trace mitral valve regurgitation. There is no mitral valve stenosis. Pulmonic Valve The pulmonic valve is likely normal. There is trace pulmonic valve regurgitation. Tricuspid Valve Normal tricuspid valve structure. There is mild tricuspid valve regurgitation. The pulmonary artery systolic pressure is normal. Great Vessels The aortic annulus, sinuses of valsalva, and asc aorta are normal in size. Venous The inferior vena cava is normal in size and collapses greater than 50% with inspiration. Pericardium/Pleural There is no evidence of pericardial effusion. Prior Study Comparison No prior study available for comparison. Measurements 2D Linear Measurements IVSd: 0.66 0.6-0.9/0.6-1.0 cm LVIDd: 4.41 3.9-5.3/4.2-5.9 cm LVIDd Index: 2.53 2.4-3.2/2.2-3.1 cm/m2 LVIDs: 2.98 2.0-3.6 cm LVPWd: 0.72 0.7-1.1 cm LA Diam: 2.70 2.7-3.8/3.0-4.0 cm LAIDs Index: 1.55 1.5-2.3 cm/m2 LV Mass: 112.88 67-162/88-224 g LV Mass Index: 64.87 43-95/49-115 g/m2 LVOT Diam: 2.10 3.0+(-)1.3 cm 2D Systolic Function EF 4C: 61.60 >55% EF 2C: 68.10 >55% EF BiP: 64.20 >55% Mitral Valve MV Pk E: 0.80 MV PK A: 0.55 MV Decel Time: 172.00 E/A: 1.40 E'Lateral: 15.10 E'Medial: 12.50 E/E' Med: 6.40 E/E' Lat: 5.30 PHT: 50.00 MVA PHT: 4.40 Decel Mcculloch: 4.64 Aortic Valve AoV Pk Roberto: 1.09 AoV Mn Roberto: 0.83 AoV VTI: 0.23 AoV Pk Grad: 5.00 Aov Mn Grad: 3.00 ROGELIO Cont.VTI: 3.03 LVOT LVOT Pk Roberto: 0.97 LVOT Mn Roberto: 0.75 LVOT VTI: 0.20 LVOT Pk Grad: 4.00 LVOT Mn Grad: 2.00 LVOT Diam: 2.10 LVOT Area: 3.46 Diastolic Function MV Pk E: 0.80 MV Pk A: 0.55 E/A: 1.40 E'Medial: 12.50 E/E' Med: 6.40 E' Laterial: 15.10 E/E' Lat: 5.30 Right Ventricle TAPSE (mm): 18.70 TVS' Robetro: 11.10 Tricuspid Valve TR Pk Roberto: 2.09 TR Pk Grad: 17.00 RA Press: 3.00 RVSP: 20.00 Great Vessels Aorta Sinus of Valsalva: 2.64 2.0-3.[address] [place]: 2.20 1.7-3.4 cm Ao Asc: 2.50 2.1-3.4 cm Ao Arch: 2.30 Updated in Other Vendor System with Status of Final Butch Negron MD electronically signed on 12/26/2021 12:28:07 PM with status of Final
--- NOTE | 2021-12-26 10:30 | ECG_ITS ---
Hook-up date: 2021-12-26 09:37:00 Duration: 23:00:00 Test Indications: UNSPEC. CARDIAC ARRHYTHMIA Medications: [id number] QRS complexes * Ventricular ectopics which represent % of total QRS comp. 1 Supraventricular ectopics which represent <1 % of total QRS comp. * Paced QRS complexs which represent % of total QRS comp. VENTRICULAR ECTOPY * Isolated * Bigeminal Cycles * Couplets * Runs * Beats in Runs * Beats LONGEST at * BPM at :: -- * Beats FASTEST at * BPM at :: -- SUPRAVENTRICULAR ECTOPY 1 Isolated 0 Couplets 0 Runs 0 Beats in Runs * Beats LONGEST at * BPM at :: -- * Beats FASTEST at * BPM at :: -- HEART RATES 47 MIN at 04:10:04 2021-12-27 80 AVG 153 MAX at 10:37:40 2021-12-26 LONGEST RR 1.3200 secs at 05:39:14 2021-12-27 S-T LEVELS Channel 1 - 128 mm at 09:37:00 2021-12-26 - 128 mm at 09:37:00 2021-12-26 Channel 2 - 128 mm at 09:37:00 2021-12-26 - 128 mm at 09:37:00 2021-12-26 Channel 3 - 128 mm at 02:85:61 -- - 128 mm at 02:85:61 Underlying rhythm is sinus; Average ventricular rate 80/min; range 47-153/min; No significant ectopy, tachy or dorcas-arrhythmias; Patient did not report any symptoms in the diary Referred By: Montse Brar Overread By: MAHSA BRAGA
== END ==
LOC: HO.CARD 09:20
PROVIDERS: Visit Provider Family Medicine
DX: I49.9 Cardiac arrhythmia, unspecified (principal)
CPT/HCPCS: 93225; 93226; 93306

== ENCOUNTER → 2022-06-15 15:05 | Outpatient (BNVA) | payer OTHER, SELFPAY | PROVIDERS: PCP Family Medicine; Visit Provider Internal Medicine | DX: S01.112A Laceration without foreign body of left eyelid and periocular area, initial encounter (principal); W22.09XA Striking against other stationary object, initial encounter | CPT/HCPCS: 99203 ==

== ENCOUNTER → 2022-06-19 10:50 | Outpatient (BNVA) | payer OTHER, SELFPAY | PROVIDERS: PCP Family Medicine; Visit Provider Physician Assistant Medical | DX: S01.112A Laceration without foreign body of left eyelid and periocular area, initial encounter (principal); W22.09XA Striking against other stationary object, initial encounter | CPT/HCPCS: 87071; 87205; 99213 ==

== ENCOUNTER → 2022-06-21 09:31 | Outpatient (BNVA) | payer OTHER, SELFPAY | PROVIDERS: PCP Family Medicine; Visit Provider Physician Assistant Medical | DX: S01.112A Laceration without foreign body of left eyelid and periocular area, initial encounter (principal); W22.09XA Striking against other stationary object, initial encounter | CPT/HCPCS: 99213 ==

== ENCOUNTER 2022-07-06 09:54 | Outpatient (REF) | payer MEDICAID, SELFPAY ==
--- NOTE | ~2022-07-06 | US_ITS ---
EXAMINATION: US ABDOMEN COMPLETE CLINICAL INFORMATION: Abdominal pain. COMPARISON: CT abdomen and pelvis 03/01/2021. TECHNIQUE: Real-time imaging of the abdominal viscera. FINDINGS: PANCREAS: Normal. ABDOMINAL AORTA: The proximal, mid, and distal segments are normal in caliber. INFERIOR VENA CAVA: Visualized portions are normal. LIVER: Normal. The liver is normal in size. The liver contour is normal. Parenchymal echogenicity is normal. No focal hepatic lesion. There is no intrahepatic biliary duct dilatation seen. GALLBLADDER: Normal. The gallbladder is physiologically distended without evidence of stones, sludge, polyps, wall thickening or pericholecystic fluid. COMMON BILE DUCT: Normal in caliber measuring 0.2 cm in diameter. RIGHT KIDNEY: Normal. No hydronephrosis. No renal calculi or focal parenchymal lesions. The kidney measures 9.9 cm in maximum dimension. LEFT KIDNEY: Normal. No hydronephrosis. No renal calculi or focal parenchymal lesions. The kidney measures 10.3 cm in maximum dimension. SPLEEN: Normal. The spleen measures 10.4 cm in maximum dimension. FREE FLUID: None. US/US abdomen complete IMPRESSION: Unremarkable complete abdomen ultrasound.
== END 2022-07-06 09:55 | disposition home or self-care (01) ==
LOC: HO.US 09:54
PROVIDERS: Visit Provider Family Medicine
DX: R10.84 Generalized abdominal pain (principal)
CPT/HCPCS: 76700

== ENCOUNTER → 2022-07-28 14:19 | Outpatient (BNVA) | payer MEDICAID, SELFPAY | PROVIDERS: PCP Family Medicine; Referring Provider Family Medicine; Visit Provider Internal Medicine | DX: R10.9 Unspecified abdominal pain (principal); R19.8 Other specified symptoms and signs involving the digestive system and abdomen | CPT/HCPCS: 99202 ==

== ENCOUNTER 2022-08-31 09:18 | Day surgery (SDC) | payer MEDICAID, SELFPAY ==
--- NOTE | 2022-08-30 10:19 | P.CONAN_ITS ---
Documented by User: Surekha Rowley NP 08/30/22 10:19 HPI - Anesthesia Eval Consult details Narrative: 22yo M for Upper Endoscopy [facility] Active Problems Active Problems: All Active Problems (Updated 08/28/22 @ 10:04 by Suzy Goodman, RN) Central abdominal pain (Acute) Altered bowel function (Acute) Past Medical History Medical History (Updated 08/28/22 @ 10:04 by Suzy Goodman, RN) Depression History of upper gastrointestinal bleeding Family History Family History Father Diabetes HTN (hypertension) Paternal Grandfather Diabetes HTN (hypertension) Paternal Grandmother HTN (hypertension) Surgical History Surgical History (Updated 08/28/22 @ 10:04 by Suzy Goodman RN) History of esophagogastroduodenoscopy (EGD) Social History Social History Patient Tobacco Use Status: Never used Tobacco Use of substances other than those prescribed or required for medical reasons: No Substance Use Type: Marijuana Are you DNR?: No Advance Directives: No Advance Directives Information Provided: Yes service: No Current occupational status: employed Meds Allergies Allergy/AdvReac Type Severity Reaction Status Date / Time No Known Allergies Allergy Verified 07/28/22 14:25 [No Known Allergies*] Exam Exam Date and Time: August 30, 2022 1019 Assessment and Plan Assessment Anesthesia Assessment: Chart Reviewed Documented by User: Hernandez Nieves MD 08/31/22 11:08 [facility] Past Medical History Medical History (Updated 08/28/22 @ 10:04 by Suzy Goodman RN) Depression History of upper gastrointestinal bleeding Family History Family History Father Diabetes HTN (hypertension) Paternal Grandfather Diabetes HTN (hypertension) Paternal Grandmother HTN (hypertension) Family history of problems with anesthesia: No Surgical History Surgical History (Updated 08/28/22 @ 10:04 by Suzy Goodman RN) History of esophagogastroduodenoscopy (EGD) History of Problems with Anesthesia: No Social History Social History Patient Tobacco Use Status: Never used Tobacco Use of substances other than those prescribed or required for medical reasons: No Substance Use Type: Marijuana Are you DNR?: No Advance Directives: No Advance Directives Information Provided: Yes service: No Current occupational status: employed Meds Allergies Allergy/AdvReac Type Severity Reaction Status Date / Time No Known Allergies Allergy Verified 07/28/22 14:25 [No Known Allergies*] Exam Airway Mallampati Class: II TM Dist: >3cm Neck ROM: Full Loose/Missing/Broken Teeth: No Heart: rrr Lungs: clear Assessment and Plan Final Anesthetic Review Family History of Problems with Anesthesia: No History of Problems with Anesthesia: No NPO: Yes ASA Class: II Final Preanesthetic Review: No Changes in Pt Med Stat, Meds/Allgs Chart Reviewed, Consent Obtained/Reviewed and Anes Risks/Benef Reviewed Patient Risk: Low Procedure Risk: Low Anesthetic Plan Anesthetic Plan: MAC: Disposition: Standard PACU
[2022-08-31 09:36] VITALS: BP 110/70; PULSE 98; RESP 18; TEMP 37.1; O2SAT 97; BMI 21.2
[2022-08-31 10:19] VITALS: BMI 21.2
[2022-08-31] MEDS: Lactated Ringers 1,000 ML 100 ML IVCONT (10:20)
--- NOTE | 2022-08-31 11:15 | MHC.SHP ---
Pre-Procedural Eval Section A Date of Service: 08/31/22 Section B Chief Complaint: abdominal pain and prev hx of esophagitis Details of Present Illness: 22 y.o M with central abd pain. Pt states that has resolved in fact. Also does not have alternative BMs any further. He is unsure what helped. Has not needed to take PPI in a month. Present Medications: see Short Stay Collaborative assessment Medical History: Significant History (MWT and esophagitis in 2020) Allergies: Allergies Allergy/AdvReac Type Severity Reaction Status Date / Time No Known Allergies Allergy Verified 07/28/22 14:25 [No Known Allergies*] Review of Systems Review of Systems Comment: 10 point ROS negative except as above Exam Exam Comment: Gen appear: No acute distress, well nourished HEENT: no icterus, no cervical lymphadenopathy Chest: No overt resp distress Abd: soft, nontender, nondistended Psych: Stable affect, answering questions appropriately Neuro: A/Ox3 noted to move all extremities spontaneously Ext: no peripheral edema Plan Diagnosis/Plan: Unchanged I have reviewed the history and physical and performed a pertinent physical examination on my patient. No changes have occurred unless specified.
--- NOTE | 2022-08-31 11:19 | P.OP_ITS ---
Operative Note Operative Note Date of Service: 08/31/22 Narrative: Procedure: Esophagogastroduodenoscopy Endoscopist: Brittani Woodson MD Indication: Previous hx of esophagitis Anesthesia Provider: Dr Hernandez Nieves Anesthesia Type: MAC ?? EGD Procedure:?? The procedure, indications, preparation and potential complications were reviewed with the patient, who indicated understanding and gave written informed consent to proceed. A physical exam was performed. The endoscope was introduced through the mouth, and advanced to the second part of duodenum. The mucosa was carefully examined on slow withdrawal of the endoscope. The patient tolerated the procedure well. There were no immediate complications.? ? EGD Findings:? * Esophagus:? A few mucosal breaks extending from 39 cm to 37 cm but did not go across the folds. The Z line was at 39 cm. Cold forceps lower esophagus forceps biopsies were obtained. Previously placed endoclips x 2 were noted right below the Z line. * Stomach:? Healing ulcer noted in the fundus. Cold forceps biopsies obtained from the edge of the ulcer. Erythema in the body and antrum. Random cold forceps gastric biopsies were taken to rule out H Pylori infection. * Duodenum:? Normal mucosa was noted in the whole of the examined duodenum. Biopsies were taken from duodenal bulb and second portion of the duodenum to rule out celiac sprue. ? EGD Impressions:? * Grade B esophagitis (biopsy) * Previously placed endoclips at GEJ * Small healing gastric ulcer (biopsy) * Normal duodenum (biopsy) ?? Recommendations:?? * Follow biopsy results. Our office will call or send a letter with results within 7-10 days. * Start PPI therapy at Omeprazole 40mg once daily for at least 6-8 weeks. * If H pylori +, patient will be prescribed eradication therapy followed by test of cure. * Can consider pH testing in the future if patient interested in fundoplication. * Avoid NSAIDs. Above has been reviewed with the patient. Relevant educational hand outs were provided at discharge. ?
[2022-08-31 11:44] VITALS: BP 104/55; PULSE 83; RESP 24; TEMP 36.6; O2SAT 96
[2022-08-31 11:59] VITALS: BP 110/64; PULSE 77; RESP 20; O2SAT 97
[2022-08-31 12:14] VITALS: BP 105/67; PULSE 78; RESP 20; TEMP 36.7; O2SAT 97
== END 2022-08-31 13:15 | disposition home or self-care (01) ==
PROVIDERS: PCP Family Medicine; Visit Provider Internal Medicine
PROC: 0DJ08ZZ Inspection of Upper Intestinal Tract, Via Natural or Artificial Opening Endoscopic (ICD-10-PCS; CPT 43235; principal; 2022-08-31 10:40)
DX: K20.90 Esophagitis, unspecified without bleeding (principal); K25.9 Gastric ulcer, unspecified as acute or chronic, without hemorrhage or perforation; K29.70 Gastritis, unspecified, without bleeding
CPT/HCPCS: 43239; 88305; 88342

== ENCOUNTER → 2022-09-15 13:23 | Outpatient (BNVA) | payer MEDICAID, SELFPAY | PROVIDERS: PCP Family Medicine; Referring Provider Family Medicine; Visit Provider Internal Medicine | DX: K21.00 Gastro-esophageal reflux disease with esophagitis, without bleeding (principal); K29.70 Gastritis, unspecified, without bleeding | CPT/HCPCS: 99212 ==

== ENCOUNTER 2022-11-23 08:09 | Day surgery (SDC) | payer MEDICAID, SELFPAY ==
[2022-11-23 08:26] VITALS: BMI 21.2
[2022-11-23] MEDS: Lactated Ringers 1,000 ML 50 ML IVCONT (08:32)
--- NOTE | 2022-11-23 08:42 | MHC.SHP ---
Pre-Procedural Eval Section A Date of Service: 11/23/22 Section B Chief Complaint: Esophagitis Details of Present Illness: Medical History Depression History of upper gastrointestinal bleeding Surgical History History of esophagogastroduodenoscopy (EGD) Relevant Social History: None Present Medications: see Short Stay Collaborative assessment Allergies: Allergies Allergy/AdvReac Type Severity Reaction Status Date / Time No Known Allergies Allergy Verified 11/17/22 13:39 [No Known Allergies*] Review of Systems Review of Systems Comment: 10 point ROS negative except as above Exam Exam Comment: Gen appear: No acute distress HEENT: no icterus Chest: No overt resp distress Abd: soft, nontender, nondistended Psych: Stable affect, answering questions appropriately Neuro: A/Ox3 noted to move all extremities spontaneously Ext: no peripheral edema Plan Diagnosis/Plan: Unchanged I have reviewed the history and physical and performed a pertinent physical examination on my patient. No changes have occurred unless specified. Time Spent With Patient Time: Total time managing care of this patient today ____ minutes.
--- NOTE | 2022-11-23 08:43 | P.OP_ITS ---
Operative Note Operative Note Date of Service: 11/23/22 Narrative: Procedure: Esophagogastroduodenoscopy Endoscopist: Brittani Woodson MD Indication: Follow up esophagitis Anesthesia Provider: Dr Kyle Del Cid Anesthesia Type: MAC ?? EGD Procedure:?? The procedure, indications, preparation and potential complications were revie wed with the patient, who indicated understanding and gave written informed consent to proceed. A physical exam was performed. The endoscope was introduced through the mouth, and advanced to the second part of duodenum. The mucosa was carefully examined on slow withdrawal of the endoscope. The patient tolerated the procedure well. There were no immediate complications.? ? EGD Findings:? * Esophagus:? Normal mucosa noted in the entire esophagus. The Z line was at 40 cm. * Stomach:? Normal mucosa was noted in the stomach. * Duodenum:? Normal mucosa was noted in the whole of the examined duodenum. ? EGD Impressions:? * Normal esophagus * Normal stomach * Normal duodenum ?? Recommendations:?? * Continue PPI therapy. Will likely need it indefinitely as develops esophagitis secondary to GERD, when he is off PPI. * Avoid NSAIDs. Above has been reviewed with the patient. Relevant educational hand outs were provided at discharge. ?
[2022-11-23 08:49] VITALS: BP 113/55; PULSE 70; RESP 18; TEMP 37; O2SAT 96
--- NOTE | 2022-11-23 08:58 | HO.ANESPROP2 ---
HPI - Anesthesia Eval Consult details Narrative: For EGD [facility] Active Problems Active Problems: All Active Problems (Updated 09/15/22 @ 14:34 by Brittani Woodson MD) Central abdominal pain (Acute) Altered bowel function (Acute) GERD with esophagitis (Acute) Gastritis (Acute) Past Medical History Medical History Depression History of upper gastrointestinal bleeding Family History Family History Father Diabetes HTN (hypertension) Paternal Grandfather Diabetes HTN (hypertension) Paternal Grandmother HTN (hypertension) Family history of problems with anesthesia: No Surgical History Surgical History (Updated 11/17/22 @ 13:39 by Suzy Goodman, RN) History of esophagogastroduodenoscopy (EGD) History of Problems with Anesthesia: No Social History Social History Patient Tobacco Use Status: Never used Tobacco Substance Use Type: Marijuana Are you DNR?: No Advance Directives: No Advance Directives Information Provided: Yes Nutrition Risks: No Nutritional Risk service: No Current occupational status: employed Meds Allergies Allergy/AdvReac Type Severity Reaction Status Date / Time No Known Allergies Allergy Verified 11/17/22 13:39 [No Known Allergies*] Active Medications: Current Medications Lactated Ringer's (Lr) 1,000 mls @ 50 mls/hr IVCONT .Q20H BRUCE Last Admin: 11/23/22 08:32 Dose: 50 mls/hr Exam Exam Date and Time: November 23, 2022 0858 Height,Weight and Vital Signs: Height 5 ft 8 in Weight 63.503 kg Last Vital Signs Temp 98.6 F 11/23/22 08:49 Pulse 70 11/23/22 08:49 Resp 18 11/23/22 08:49 BP 113/55 L 11/23/22 08:49 Pulse Ox 96 11/23/22 08:49 O2 Del Method 11/23/22 08:49 Airway Mallampati Class: I TM Dist: >3cm Denture: Upper (Veneers) and Lower (Veneers) Loose/Missing/Broken Teeth: No Heart: ok Lungs: ok Assessment and Plan Assessment Anesthesia Assessment: Anesthesia Plan Discussed and Chart Reviewed Final Anesthetic Review Family History of Problems with Anesthesia: No History of Problems with Anesthesia: No NPO: Yes ASA Class: II Final Preanesthetic Review: No Changes in Pt Med Stat, Meds/Allgs Chart Reviewed, Consent Obtained/Reviewed and Anes Risks/Benef Reviewed Patient Risk: Low Procedure Risk: Intermediate Anesthetic Plan Anesthetic Plan: MAC: and Agree w/ Assess. and Plan Disposition: Standard PACU
[2022-11-23 09:54] VITALS: BP 88/30; PULSE 69; RESP 16; TEMP 36.8; O2SAT 93
[2022-11-23 10:10] VITALS: BP 103/38; PULSE 65; RESP 18; TEMP 36.8; O2SAT 96
== END 2022-11-23 10:39 ==
PROVIDERS: PCP Family Medicine; Visit Provider Internal Medicine
PROC: 0DJ08ZZ Inspection of Upper Intestinal Tract, Via Natural or Artificial Opening Endoscopic (ICD-10-PCS; CPT 43235; principal; 2022-11-23 08:30)
DX: K21.00 Gastro-esophageal reflux disease with esophagitis, without bleeding (principal); K29.70 Gastritis, unspecified, without bleeding; F32.A Depression, unspecified; Z79.899 Other long term (current) drug therapy; F12.90 Cannabis use, unspecified, uncomplicated
CPT/HCPCS: 43235; J3010

== ENCOUNTER → 2022-12-08 13:15 | Outpatient (BNVA) | payer MEDICAID, SELFPAY | PROVIDERS: PCP Family Medicine; Visit Provider Internal Medicine | DX: K21.00 Gastro-esophageal reflux disease with esophagitis, without bleeding (principal) | CPT/HCPCS: 99212 ==

== ENCOUNTER 2023-02-08 16:32 | Emergency (ER) | payer MEDICAID, SELFPAY ==
[2023-02-08 17:20] VITALS: BP 125/79; PULSE 117; RESP 20; TEMP 37.4; O2SAT 97; BMI 22.3
--- NOTE | 2023-02-08 17:21 | ED.GENADULT ---
HPI - General Adult General Chief complaint: Nausea/Vomiting/Diarrhea Stated complaint: vomiting, cant keep anything down Time Seen by Provider: 02/08/23 18:59 Source: patient, RN notes reviewed and old records reviewed Mode of arrival: ambulatory Limitations: no limitations History of Present Illness HPI narrative: 22-year-old male with past medical history significant for GERD presents for evaluation of vomiting and diarrhea. Patient reports his symptoms started yesterday morning. He reports fevers, chills, body aches yesterday but not today He reports mid to upper abdominal pain that is 6/10 in burning He has been taking TheraFlu and Imodium [id number] with no change in his symptoms Patient went to urgent care yesterday and apparently tested positive for influenza B He has no other complaints or concerns at this time Related Data Previous Rx's Medication Instructions Recorded omeprazole 10 mg capsule,delayed 10 mg PO DAILY #90 caps 12/08/22 release loperamide 2 mg capsule (Imodium 2 mg PO Q4H PRN loose stool #20 02/08/23 A-D) caps ondansetron 4 mg disintegrating 4 mg PO Q8H PRN nausea and 02/08/23 tablet vomiting #20 tabs Allergies Allergy/AdvReac Type Severity Reaction Status Date / Time No Known Allergies Allergy Verified 12/08/22 13:21 [No Known Allergies*] Review of Systems Constitutional: Constitutional: Reports body ache(s), Reports chills, Reports fever(s) and Denies headache(s) Eyes: Eyes: Denies blurry vision ENT: Denies headache(s) and Denies sore throat Cardiovascular: Cardiovascular: Denies chest pain and Denies dyspnea Respiratory: Respiratory: Denies cough and Denies dyspnea Gastrointestinal: Gastrointestinal: Reports abdominal pain, Denies hematochezia, Reports diarrhea, Reports nausea and Reports vomiting Musculoskeletal: Musculoskeletal: Denies back pain Integumentary/Breasts: Skin/Breast: Denies rash Neurologic: Denies headache(s) [facility] Past Medical History Medical History Depression History of upper gastrointestinal bleeding Surgical History History of esophagogastroduodenoscopy (EGD) Family History Family History Father Diabetes HTN (hypertension) Paternal Grandfather Diabetes HTN (hypertension) Paternal Grandmother HTN (hypertension) Social History Social History Patient Tobacco Use Status: Never used Tobacco Substance Use Type: Marijuana Advance Directives: No Advance Directives Information Provided: No service: No Current occupational status: employed Physical Exam ED Vital Signs: Vital Signs - 24 hr 02/08/23 17:20 02/08/23 21:34 Temperature 99.3 F 98.3 F Pulse Rate 117 H 79 Respiratory Rate 20 16 Blood Pressure 125/79 134/64 Pulse Oximetry 97 97 Oxygen Delivery Method Room Air Room Air BMI result Body Mass Index 22.3 Const General: healthy appearing, comfortable, no acute distress, alert and awake Nutritional Appearance: well nourished Orientation/consciousness: patient oriented x3 HENMT Head: Yes normocephalic and Yes atraumatic Neck Neck: Yes full ROM Resp Effort & Inspection: normal respiratory effort, able to speak in complete sentences, no audible wheezes and not labored Auscultation: clear to auscultation bilaterally Cardio Rate: regular rate Rhythm: regular rhythm GI Inspection: No distended Palpation (GI): Soft to palpation, not firm, Tenderness to palpation present (GI) (Minimal tenderness without guarding) in the LUQ and periumbilically, no guarding and not rigid Auscultation: normoactive bowel sounds Skin General skin exam: no rashes or lesions noted and elasticity normal Neuro General: patient oriented x3 Cranial nerves: Yes Bilaterally intact EOM present Cognition (Neuro): normal cognition Extrem Other: Moving all extremities well without any obvious deformities Course Course Course Narrative: This is an RME: Additional HPI, ROS, PE not included below will be deferred to primary provider. 22 year old male with PMh of GERD presents to the ED with 2 days of anorexia, nausea, vomiting, diarrhea and abdominal pain. Patient is Flu B positive from urgent care. Patient has been taking theraflu and tylenol with no improvement of symptoms. PE: Tachycardic at 114 bpm Plan: Basic labs, EKG Reevaluation(s) Reevaluation #1: Repeat vitals improved Time: 21:48 Medications Administered Discontinued Medications Generic Name Dose Route Start Last Admin Trade Name Freq PRN Reason Stop Dose Admin Sodium Chloride 1,000 mls @ 999 mls/hr 02/08/23 19:15 02/08/23 21:38 Ns IV 02/08/23 20:15 Infused .Q1H1M BRUCE Infusion Ketorolac Tromethamine 30 mg 02/08/23 19:15 02/08/23 19:23 Ketorolac Tromethamine 30 Mg/Ml Vial IVPUSH 02/08/23 19:16 30 mg ONCE ONE Administration Ondansetron HCl 4 mg 02/08/23 19:15 02/08/23 19:23 Ondansetron Hcl 4 Mg/2 Ml Vial IVPUSH 02/08/23 19:16 4 mg ONCE ONE Administration Medical Decision Making Medical Decision Making [facility] Narrative: 22-year-old healthy male presents for evaluation of vomiting and diarrhea after being diagnosed with influenza B. patient's labs are without significant abnormality. We will treat symptoms with fluids, Zofran, Toradol, he can safely be discharged with symptomatic care. Differential Diagnosis Influenza B Viral syndrome Vomiting Diarrhea Dehydration Colitis Lab Data [facility] Lab Attestation statement: I reviewed the patient's lab results. 02/08/23 17:47 02/08/23 17:47 Labs: Lab Results 02/08/23 Range/Units 17:47 WBC 9.0 (4.8-10.8) X10*3/uL RBC 5.75 (4.60-5.80) X10*6/uL Hgb 15.7 (14.0-18.0) g/dl Hct 48.0 (42.0-52.0) % MCV 83.5 (80.0-98.0) fL MCH 27.3 (27.0-33.0) pg MCHC 32.7 (31.0-36.0) g/dl RDW 13.6 (11.0-16.0) % Plt Count 261 (160-400) X10*3/uL MPV 9.2 L (9.4-12.4) fL Immature Gran % (Auto) 0.3 (0.0-0.4) % Neut % (Auto) 78.9 H (45-73) % Lymph % (Auto) 7.2 L (20-40) % [place] % (Auto) 13.3 H (2-11) % Eos % (Auto) 0.2 (0-4) % Baso % (Auto) 0.1 (0-2) % Lymph # (Auto) 0.7 L (1.2-4.9) X10*3/uL [place] # (Auto) 1.2 (0.1-1.2) X10*3/uL Eos # (Auto) 0.0 (0.0-0.4) X10*3/uL Baso # (Auto) 0.0 (0.0-0.2) X10*3/uL Abs Immat Gran (auto) 0.03 (0.00-0.03) X10*3/uL Absolute Neuts (auto) 7.1 (2.0-8.3) x10*3/uL Absolute Nucleated RBC 0.000 (0.0-0.012) X10*3/uL Nucleated RBC % (auto) 0.0 (0.0-0.2) /100WBC Discharge Plan Discharge Clinical Impression: Influenza B Patient Disposition: Home, Self-Care Instructions: Influenza (ED) Additional Instructions: Drink small, frequent sips throughout the day to stay hydrated Use Zofran for nausea or vomiting Take Imodium for diarrhea Flu symptoms usually last for about 5 days This can be very contagious, so wash her hands frequently and cover any coughing Prescriptions: New ondansetron 4 mg tablet,disintegrating 4 mg PO Q8H PRN (Reason: nausea and vomiting) Qty: 20 0RF loperamide [Imodium A-D] 2 mg capsule 2 mg PO Q4H PRN (Reason: loose stool) Qty: 20 0RF Rx Instructions: administer after each loose stool until symptoms controlled; do not exceed 8 mg per 24 hrs No Action omeprazole 10 mg capsule,delayed release(DR/EC) 10 mg PO DAILY Qty: 90 1RF
--- NOTE | 2023-02-08 17:24 | ECG_ITS ---
Test Reason : TACHYCARDIA Blood Pressure : / mmHG Vent. Rate : 111 BPM Atrial Rate : 111 BPM P-R Int : 132 ms QRS Dur : 090 ms QT Int : 290 ms P-R-T Axes : 076 061 036 degrees QTc Int : 394 ms Sinus tachycardia Possible Left atrial enlargement Borderline ECG When compared with ECG of 20-SEP-2018 02:15, No significant change was found Referred By: Keara Balderas Electronically Signed By:MAHSA BRAGA
[2023-02-08 17:59] LABS: MANUAL DIFF FLAG NO
[2023-02-08 18:00] LABS: Basophils Percent Auto 0.1 % (0-2); Eosinophils Percent Auto 0.2 % (0-4); Hemoglobin 15.7 g/dl (14.0-18.0); Imm Gran Abs Auto 0.03 X10*3/uL (0.00-0.03); Imm Gran Pct Auto 0.3 % (0.0-0.4); Lymphocytes Absolute Auto 0.7 X10*3/uL (1.2-4.9); Lymphocytes Percent Auto 7.2 % (20-40); Mean Corpuscular HGB Conc 32.7 g/dl (31.0-36.0); Mean Corpuscular Hemoglobin 27.3 pg (27.0-33.0); Mean Corpuscular Volume 83.5 fL (80.0-98.0); Mean Platelet Volume 9.2 fL (9.4-12.4); Monocytes Absolute Auto 1.2 X10*3/uL (0.1-1.2); Monocytes Percent Auto 13.3 % (2-11); Neutrophils Absolute Auto 7.1 x10*3/uL (2.0-8.3); Neutrophils Percent Auto 78.9 % (45-73); Platelet Count 261 X10*3/uL (160-400); Red Blood Count 5.75 X10*6/uL (4.60-5.80); Red Cell Distribution Width 13.6 % (11.0-16.0)
[2023-02-08] MEDS: 0.9 % Sodium Chloride 1,000 ML 999 ML IV (19:22)
[2023-02-08] MEDS: Ketorolac Tromethamine 30 MG/ML VIAL IVPUSH (19:23)
[2023-02-08] MEDS: ondansetron HCL 4 MG/2 ML VIAL IVPUSH (19:23)
[2023-02-08 21:34] VITALS: BP 134/64; PULSE 79; RESP 16; TEMP 36.8; O2SAT 97
== END 2023-02-08 21:58 | disposition home or self-care (01) ==
PROVIDERS: Physician Assistant; Emergency Provider Emergency Medicine Emergency Medical Services; PCP Family Medicine
DX: J10.1 Influenza due to other identified influenza virus with other respiratory manifestations (principal); R00.0 Tachycardia, unspecified; Z79.899 Other long term (current) drug therapy
CPT/HCPCS: 36415; 85025; 93005; 96361; 96374; 96375; 99284; J1885; J2405

== ENCOUNTER 2023-04-24 11:56 | Outpatient (REF) | payer MEDICAID, SELFPAY ==
--- NOTE | ~2023-04-24 | XR_ITS ---
EXAMINATION: XR CHEST CLINICAL INFORMATION: Chest pain COMPARISON: None available. TECHNIQUE: 2 views of the chest were obtained. FINDINGS: No significant abnormality is noted involving the heart, lungs, mediastinum, bony thorax or soft tissues. XR/XR chest 2V IMPRESSION: Unremarkable chest examination.
== END 2023-04-24 11:57 | disposition home or self-care (01) ==
LOC: HO.XRAY 11:56
PROVIDERS: PCP Family Medicine; Visit Provider Family Medicine
DX: R07.9 Chest pain, unspecified (principal)
CPT/HCPCS: 71046

== ENCOUNTER 2023-05-30 12:51 | Outpatient (AMB) | payer MEDICAID, SELFPAY ==
[2023-05-30 13:04] VITALS: BP 144/63; PULSE 73; BMI 22.2
--- NOTE | 2023-05-30 13:04 | A.OFFVIS_ITS ---
Intake Vital Signs 05/30/23 13:04 Height 5 ft 8 in Weight 145 lb 15.136 oz BMI 22.2 BP 144/63 H Blood Pressure Location Rt brachial Position Sitting Pulse 73 Pulse Source Pulse Oximeter Intake Visit Reasons: 6 month follow up Intake Note: Pt presents to the office today for a 6 month follow up. Pt states the beginning of May his acid reflux was really bothering him and was making him nauseous. Pt decided to increase his dose of omeperaloze to 20mg in the AM and 20mg in the PM which was helping during that time. Pt states now he is taking 10mgin the AM and occasionally will take it in the PM as well. He states he hasnt had a bad episode in the past few weeks. Pt denies any nausea or vimitting. He states he had a loose stool this morning. Allergies No Known Allergies [No Known Allergies*] Allergy (Verified 05/30/23 13:06) HPI HPI Comments History of Present Illness Details This is a 22-year-old gentleman with hx of upper GI bleeding secondary to Brenda-Stock tear versus esophageal ulcer 2020, grade B esophagitis and gastric ulcer 08/2022 who is here for follow up. Initial visit 07/2022: He presents for follow-up for abdominal pain and changes in bowel habits. Patient states that for the last 2-3 months, he has been having central abdominal pain localized above his umbilicus that starts every time he eats something. No specific food triggers identified. Last for at least 30 minutes. Does not describe any radiation. He often has the urgency to go have a bowel movement with this. Once he has a bowel movement, the pain goes away. Denies any nausea, vomiting, unintentional weight loss. Has been noticing more soft/loose stool since this pain has started. Denies any blood in stool. Has been taking pantoprazole, and dicyclomine. Does not think pantoprazole his help much, but reports significant relief of pain with Bentyl. No family history of colon cancer or inflammatory bowel disease. Previous endoscopy: LA grade B esophagitis with for his grade 2A ulcer at GE junction status post 3 clips. Small hiatal hernia. Patient was supposed to follow up within 3 months for follow-up endoscopy, but lost to follow-up. EGD 08/2022? * Grade B esophagitis (biopsy) * Previously placed endoclips at GEJ * Small healing gastric ulcer (biopsy) * Normal duodenum (biopsy) Path: A.? Duodenum, biopsy:? Duodenal mucosa within normal limits. B.? Stomach, random, biopsy:? Antral-type and oxyntic mucosa with mild chronic inactive inflammation; no Helicobacter organisms seen. C.? Stomach, healing ulcer, biopsy:? Oxyntic mucosa with mild chronic inactive inflammation; no Helicobacter organisms seen. D.? Esophagus, lower, biopsy:? Active esophagitis (maximum eosinophil count 2 per high powered field). 09/15/22: Feels significantly better and almost back to baseline since starting Omeprazole. Has not had any black stools but has noticed 1-2 times BRBPR on wiping. Also reports sensation of swelling in throat. Was told by his dentist that he has infected tonsils and pt is currently awaiting appt with ENT for further evaluation. His main concern is natural history and complications of lonstanding GERD and treatment options. 11/23/22 - EGD Normal esophagus Normal stomach Normal duodenum 12/08/22: No GI complaints at this time. Reports adequate control of sx with PPI therapy. Has been on Omeprazole 20 for more than 8 weeks now. Has decent adherence to med, occ skips a day here or there. 05/30/23: No GI complaints at this time. However reports a flare earlier this month which necessitated increase in Omeprazole to 20mg BID x 2 weeks. Now has decreased to 10mg BID. Reports adequate control of sx with PPI therapy. [facility] Medical History Depression History of upper gastrointestinal bleeding Surgical History History of esophagogastroduodenoscopy (EGD) Family History Father Diabetes HTN (hypertension) Paternal Grandfather Diabetes HTN (hypertension) Paternal Grandmother HTN (hypertension) Social History Patient Tobacco Use Status: Never used Tobacco Substance Use Type: Marijuana service: No Current occupational status: employed Review of Systems Const All systems reviewed & are unremarkable except as noted in HPI and below Physical Exam Vital Signs: Last Vital Signs Pulse 73 05/30/23 13:04 BP 144/63 H 08/30/23 13:04 BMI result Body Mass Index 22.2 Gen appear: NAD HEENT: nonicteric, no cervical lymphadenopathy Chest: CTA CVS: Regular S1/S2 Abd: soft, nontender, nondistended, bowel sounds + Ext: no peripheral edema Neuro: A/Ox3, noted to move all extremities spontaneously Psych: interacting appropriately Assessment & Plan Assessment & Plan (1) GERD with esophagitis: Code(s): K21.00 - Gastro-esophageal reflux disease with esophagitis, without bleeding Plan Has PPI responsive GERD with esophagitis. Most recent EGD 11/2022 with resolution of esophagitis. Pt wondering whether he will need to be on PPI lifelong and whether there are other therapy options for GERD. Did review that given evidence of erosive esophagitis x 2 off PPI, will likely need antisecretory therapy indefinitely. However, happy to refer him to [facility] for discussion on surgical anti-reflux options including fundoplication, LINX, TIF. Plan: - Cont omeprazole 10 BID x 4 weeks total and then decrease to 10mg once daily - Avoid trigger foods - Elevate HOB at night time - May take antacids such as Tums or Mylanta PRN to help with breakthrough heartburn sx - [facility] referral requested Follow up in 6 months Orders: Orders FL barium swallow Today K21.00 - Gastro-esophageal reflux disease with esophagitis, without bleeding Referrals General Surgery Referral K21.00 - Gastro-esophageal reflux disease with esophagitis, without bleeding Coding Level of Care Code Est Pt Level 4 (53436) Diagnoses GERD with esophagitis K21.00
== END 2023-05-30 13:37 | disposition home or self-care (01) ==
PROVIDERS: PCP Family Medicine; Visit Provider Internal Medicine
DX: K21.00 Gastro-esophageal reflux disease with esophagitis, without bleeding (principal)
CPT/HCPCS: 99214

== ENCOUNTER → 2023-05-30 12:51 | Outpatient (BNVA) | payer MEDICAID, SELFPAY | PROVIDERS: PCP Family Medicine; Visit Provider Internal Medicine | DX: K21.00 Gastro-esophageal reflux disease with esophagitis, without bleeding (principal) | CPT/HCPCS: 99212 ==

== ENCOUNTER 2023-06-14 11:46 | Outpatient (REF) | payer MEDICAID, SELFPAY ==
[2023-06-14 13:21] LABS: MANUAL DIFF FLAG NO
[2023-06-14 13:24] LABS: Basophils Absolute Auto 0.1 X10*3/uL (0.0-0.2); Eosinophils Absolute Auto 0.1 X10*3/uL (0.0-0.4); Eosinophils Percent Auto 2.9 % (0-4); Hematocrit 44.2 % (42.0-52.0); Hemoglobin 14.7 g/dl (14.0-18.0); Imm Gran Abs Auto 0.01 X10*3/uL (0.00-0.03); Imm Gran Pct Auto 0.2 % (0.0-0.4); Lymphocytes Absolute Auto 1.7 X10*3/uL (1.2-4.9); Lymphocytes Percent Auto 34.2 % (20-40); Mean Corpuscular HGB Conc 33.3 g/dl (31.0-36.0); Mean Corpuscular Hemoglobin 27.4 pg (27.0-33.0); Mean Corpuscular Volume 82.5 fL (80.0-98.0); Mean Platelet Volume 9.5 fL (9.4-12.4); Monocytes Absolute Auto 0.5 X10*3/uL (0.1-1.2); Monocytes Percent Auto 9.9 % (2-11); Neutrophils Absolute Auto 2.5 x10*3/uL (2.0-8.3); Neutrophils Percent Auto 51.8 % (45-73); Platelet Count 295 X10*3/uL (160-400); Red Blood Count 5.36 X10*6/uL (4.60-5.80); Red Cell Distribution Width 13.3 % (11.0-16.0); White Blood Count 4.9 X10*3/uL (4.8-10.8)
[2023-06-14 13:58] LABS: Chloride 106 mmol/L (96-108); Sodium 139 mmol/L (135-145)
[2023-06-14 14:00] LABS: Estimated Average Glucose 103 mg/dL; Hemoglobin A1c % 5.2 % (<6.0)
[2023-06-14 14:01] LABS: Vitamin D 25-OH Total 36.7 ng/mL (>30)
[2023-06-14 14:06] LABS: Anion Gap 10 (12-20)
[2023-06-14 14:11] LABS: Alanine Aminotransferase 23 U/L (0-40); Albumin Level 4.3 g/dL (3.5-5.0); Alkaline Phosphatase 56 U/L (39-117); Aspartate Amino Transferase 19 U/L (5-37); Bilirubin Direct 0.2 mg/dL (0.0-0.5); Bilirubin Total 0.5 mg/dL (0.0-1.0); Blood Urea Nitrogen 12 mg/dL (9-16); Calcium 9.8 mg/dL (8.4-10.2); Carbon Dioxide 27 mmol/L (22-29); Cholesterol 164 mg/dL (<200); Estimated Glomerular Filt Rate > 60; Glucose Random 91 mg/dL (60-115); HDL Cholesterol 45 mg/dL (>40); LDL Cholesterol Calculated 103 mg/dL (<100); Total Protein 7.5 g/dL (6.5-8.0); Triglycerides 81 mg/dL (<150)
[2023-06-14 15:24] LABS: CT PCR NOT DETECTED (Not Detect.); NG PCR NOT DETECTED (Not Detect.)
[2023-06-15 08:53] LABS: ~HepC Num1 0.08 S/CO (0.00-0.79); ~Hepatitis C Antibody Nonreactive (Nonreactive)
[2023-06-15 09:00] LABS: Syphilis Screen Nonreactive (Nonreactive)
[2023-06-15 09:30] LABS: HBS Num1 0.97 mIU/mL (0-7.99); HBsAGNum1 0.37 S/CO (0.00-0.99); HIV AB/AG Nonreactive (Nonreactive); HIV Num 1 0.07 S/CO (0.00-0.99); Hepatitis B Surface Antigen Negative (Negative); ~Hepatitis B Surface Antibody NONREACTIVE (Nonreactive)
== END 2023-06-14 11:47 | disposition home or self-care (01) ==
LOC: HO.HHCL 11:46
PROVIDERS: Visit Provider Family Medicine
DX: Z00.00 Encounter for general adult medical examination without abnormal findings (principal); Z11.4 Encounter for screening for human immunodeficiency virus [HIV]
CPT/HCPCS: 0353U; 80048; 80061; 80076; 82306; 83036; 84443; 85025; 86706; 86780; 86803; 87340; 87389

== ENCOUNTER 2023-07-05 16:16 | Outpatient (REF) | payer MEDICAID, SELFPAY | END 2023-07-05 16:17 | disposition home or self-care (01) | LOC: HO.XRAY 16:16 | PROVIDERS: PCP Family Medicine; Visit Provider Family Medicine | DX: M25.561 Pain in right knee (principal); M25.562 Pain in left knee | CPT/HCPCS: 73562 ==

== ENCOUNTER 2023-10-24 09:45 | Outpatient (REF) | payer MEDICAID, SELFPAY ==
--- NOTE | ~2023-10-24 | FL_ITS ---
EXAMINATION: XR FLUOROSCOPY UPPER GI WITH AIR CLINICAL INFORMATION: Reflux COMPARISON: None TECHNIQUE: Fluoroscopic air contrast upper GI examination was performed utilizing standard techniques with thin and thick barium and effervescent granules. Numerous spot images were obtained. FINDINGS: Lateral cine images of the oropharynx and hypopharynx demonstrate normal swallow mechanism with normal epiglottic inversion and soft palate elevation. No tracheal penetration, glottic or subglottic aspiration identified. No nasopharyngeal reflux present. Hypopharyngeal structures appear normal without evidence of mass or diverticulum. There was no significant cricopharyngeal achalasia. Dual and single contrast images of the esophagus demonstrate normal caliber, contour, and mucosal pattern. No evidence of stricture, mass, or ulcerations identified. Esophageal peristalsis was normal. A small hiatal hernia is present. Gastroesophageal reflux seen up to the thoracic inlet. Dual contrast and single contrast images of the stomach demonstrated normal contour and mucosal pattern without evidence of mass, ulceration, or other abnormality. Contrast freely passed into the gastric antrum and duodenal bulb without delay. Single and air-contrast images of the duodenal bulb demonstrate no abnormality. The duodenal sweep has a normal appearance, course, and mucosal fold appearance. The imaged proximal jejunum has a normal fold pattern and caliber. FLUOROSCOPY TIME: 3 minutes 33 seconds Number of Spot Images: 9 Number of Cine: 9 DOSE AREA PRODUCT: 1424 uGy-m2 (microgray-meter squared) FL/FL barium swallow IMPRESSION: 1. Small type I hiatal hernia 2. Significant gastroesophageal reflux This procedure was performed by Clayton Garcia PA-C, and supervised by Dr. Mckeon
== END 2023-10-24 09:46 | disposition home or self-care (01) ==
LOC: HO.XRAY 09:45
PROVIDERS: PCP Family Medicine; Visit Provider Internal Medicine
DX: K21.00 Gastro-esophageal reflux disease with esophagitis, without bleeding (principal)
CPT/HCPCS: 74220

== ENCOUNTER → 2023-10-24 09:46 | Outpatient (BNV) | payer SELFPAY | PROVIDERS: PCP Family Medicine; Visit Provider Radiology Diagnostic Radiology | DX: K21.9 Gastro-esophageal reflux disease without esophagitis (principal) | CPT/HCPCS: 74221 ==

== ENCOUNTER 2023-12-27 09:31 | Outpatient (AMB) | payer OTHER, SELFPAY ==
[2023-12-27 10:03] VITALS: BP 110/78; PULSE 93; TEMP 37.3; O2SAT 98; BMI 22.5
--- NOTE | 2023-12-27 10:03 | MHC.OFFWIV ---
Intake Vital Signs 12/27/23 10:03 Height 5 ft 8 in Weight 148 lb BMI 22.5 BP 110/78 Blood Pressure Location Lt brachial Position Sitting Pulse 93 Pulse Source Pulse Oximeter Temp 99.1 F Temp Source Temporal Artery Scan Pulse Oximetry (%) 98 Oxygen Delivery Method Room Air Intake Visit Reasons: Fever, headache,cough and congestion Intake Note: pt is here today for fever headache cough and congestion started sunday Patient Tobacco Use Status: Never used Tobacco Allergies No Known Allergies [No Known Allergies*] Allergy (Verified 12/27/23 10:08) Do you need a note to return to daycare/school/sports/work: Yes HPI Fever, headache,cough and congestion HPI Details This is a 23-year-old male patient who presents today to the walk-in clinic with a 5 day history of headache, sinus pressure, productive cough, nasal congestion, fever and chills. Reports brother was recently sick with similar symptoms. Denies any GI symptoms. Denies any shortness of breath. Has had some nausea. Has been taking Tylenol at home with minor relief. [facility] Medical History History of upper gastrointestinal bleeding Depression Surgical History History of esophagogastroduodenoscopy (EGD) Family History Father Diabetes HTN (hypertension) Paternal Grandfather Diabetes HTN (hypertension) Paternal Grandmother HTN (hypertension) Social History Patient Tobacco Use Status: Never used Tobacco Substance Use Type: Marijuana service: No Current occupational status: employed Review of Systems Const All systems reviewed & are unremarkable except as noted in HPI and below Physical Exam Vital Signs: Last Vital Signs Temp 99.1 F 12/27/23 10:03 Pulse 93 12/27/23 10:03 BP 110/78 12/27/23 10:03 Pulse Ox 98 12/27/23 10:03 Oxygen Delivery Method Room Air 12/27/23 10:03 BMI result Body Mass Index 22.5 Const General: cooperative and ill appearing acutely HEENT Head: Yes normal to inspection Ears: hearing grossly normal bilaterally and external ears normal General nose exam: Normal external nose present, Normal nares present and Nasal discharge present mucoid Face and sinus: Yes sinus tenderness Throat: Yes posterior oropharynx abnormal (erythema) Neck Neck: Yes no lymphadenopathy Resp Effort & Inspection: normal respiratory effort and able to speak in complete sentences Auscultation: clear to auscultation bilaterally Cardio Jugular venous distension: no JVD Palpation: normal PMI Rate: regular rate Rhythm: regular rhythm Skin General skin exam: no rashes or lesions noted Extrem General: Yes capillary refill normal and Yes no clubbing, cyanosis or edema Psych Appearance: grossly normal Mental Status: mental status grossly normal Speech and movement: Normal speech and movement present Assessment & Plan Assessment & Plan (1) Upper respiratory infection: Code(s): J06.9 - Acute upper respiratory infection, unspecified Qualifiers: URI type: unspecified viral URI Qualified Code(s): J06.9 - Acute upper respiratory infection, unspecified Plan: Symptoms are consistent with viral illness. COVID/flu/RSV swab was obtained, patient aware he will be notified with results once these are available. Recommended conservative measures with rest, hydration, Tylenol/Motrin and cold/flu [id number] products as needed. Work note was provided. If he does not improve with time and conservative measures, or symptoms worsen/new symptoms develop, he can certainly return to the clinic for further evaluation. He verbalizes understanding and agrees to plan. Orders: Orders SARS-CoV2/FLU/RSV Today J06.9 - Acute upper respiratory infection, unspecified Coding Level of Care Code Est Pt Level 3 (28864) Diagnoses Viral upper respiratory tract infection J06.9 URI type: unspecified viral URI
== END 2023-12-27 10:52 | disposition home or self-care (01) ==
PROVIDERS: PCP Family Medicine; Visit Provider Nurse Practitioner Family
DX: J06.9 Acute upper respiratory infection, unspecified (principal)
CPT/HCPCS: 99213

== ENCOUNTER 2023-12-27 13:31 | Outpatient (REF) | payer OTHER, SELFPAY ==
[2023-12-27 14:35] LABS: Influenza A PCR NEGATIVE (Negative); Influenza B PCR POSITIVE (Negative); Resp Syncy Virus RNA Qual PCR NEGATIVE (Negative); SARS COV2 PCR INHOUSE NEGATIVE (Negative)
== END 2023-12-27 13:32 | disposition home or self-care (01) ==
LOC: HO.LNP 13:31
PROVIDERS: Visit Provider Nurse Practitioner Family
DX: Z11.52 Encounter for screening for COVID-19 (principal); J06.9 Acute upper respiratory infection, unspecified
CPT/HCPCS: 0241U

== ENCOUNTER 2024-02-15 07:31 | Outpatient (REF) | payer OTHER, SELFPAY ==
[2024-02-15 11:14] LABS: Hematocrit 45.5 % (42.0-52.0); Mean Corpuscular Hemoglobin 27.2 pg (27.0-33.0); Mean Corpuscular Volume 82.4 fL (80.0-98.0); Mean Platelet Volume 9.3 fL (9.4-12.4); Platelet Count 292 X10*3/uL (160-400); Red Blood Count 5.52 X10*6/uL (4.60-5.80); Red Cell Distribution Width 13.9 % (11.0-16.0); White Blood Count 5.3 X10*3/uL (4.8-10.8)
[2024-02-15 11:17] LABS: Estimated Average Glucose 108 mg/dL; Hemoglobin A1c % 5.4 % (<6.0)
[2024-02-15 11:32] LABS: Alanine Aminotransferase 24 U/L (0-40); Albumin Level 4.3 g/dL (3.5-5.0); Alkaline Phosphatase 55 U/L (39-117); Anion Gap 12 (12-20); Aspartate Amino Transferase 20 U/L (5-37); Bilirubin Direct 0.2 mg/dL (0.0-0.5); Bilirubin Total 0.5 mg/dL (0.0-1.0); Blood Urea Nitrogen 12 mg/dL (9-16); Calcium 9.5 mg/dL (8.4-10.2); Carbon Dioxide 26 mmol/L (22-29); Chloride 106 mmol/L (96-108); Cholesterol 150 mg/dL (<200); Estimated Glomerular Filt Rate > 60; Glucose Random 95 mg/dL (60-115); HDL Cholesterol 47 mg/dL (>40); Iron 79 mcg/dL (45-160); LDL Cholesterol Calculated 90 mg/dL (<100); Percent Iron Saturation 29 % (15-50); Potassium 3.8 mmol/L (3.3-5.1); Sodium 140 mmol/L (135-145); Total Iron Binding Capacity 271 mcg/dL (228-428); Total Protein 7.5 g/dL (6.5-8.0); Triglycerides 68 mg/dL (<150); Unsaturated Iron Binding 192 ug/dL
[2024-02-15 11:46] LABS: Ferritin 64 ng/mL (20-250); Free T4 (Free Thyroxine) 1.05 ng/dL (0.71-1.85); Thyroid Stimulating Hormone 1.54 uIU/mL (0.32-4.0); Vitamin D 25-OH Total 18.5 ng/mL (>30)
[2024-02-15 12:01] LABS: Folate 10.9 ng/mL (> or = 4.0); Vitamin B12 451 pg/mL (200-900)
[2024-02-20 18:14] LABS: Testosterone, Total 648 ng/dL (250-1100)
== END 2024-02-15 07:32 | disposition home or self-care (01) ==
LOC: HO.10HDL 07:31
PROVIDERS: Visit Provider Family Medicine
DX: R53.83 Other fatigue (principal)
CPT/HCPCS: 36415; 80048; 80061; 80076; 82306; 82607; 82728; 82746; 83036; 83540; 84403; 84439; 84443; 85027

== ENCOUNTER 2024-02-20 15:36 | Outpatient (AMB) | payer OTHER, SELFPAY ==
--- NOTE | 2024-02-20 15:38 | A.OFFVIS_ITS ---
Vital Signs 02/20/24 15:40 Height 5 ft 8 in Weight 147 lb 11.355 oz BMI 22.5 BP 111/64 Blood Pressure Location Lt brachial Position Sitting Pulse 92 Intake Visit Reasons: follow up GERD with esophagitis Intake Note: Gab presents in the office as a follow up for GERD w/ esophagitis. CC: 2 weeks ago on mothers day he had salmon and it gave him severe reflux. He states that Dr Herrera increased omeprazole. He tries to watch what he eats so it does not happen. Omeprazole with the increase he states that it helped - he also got OTC tums when he does not feel like taking the omeprazole. Would like a refill on the Ondansetron as well. Building Mechanic Required: No Allergies No Known Allergies [No Known Allergies*] Allergy (Verified 02/20/24 15:40) HPI Comments Details: This is a 22-year-old gentleman with hx of upper GI bleeding secondary to Brenda-Stock tear versus esophageal ulcer 2020, grade B esophagitis and gastric ulcer 08/2022 who is here for follow up. Initial visit 07/2022: He presents for follow-up for abdominal pain and changes in bowel habits. Patient states that for the last 2-3 months, he has been having central abdominal pain localized above his umbilicus that starts every time he eats something. No specific food triggers identified. Last for at least 30 minutes. Does not describe any radiation. He often has the urgency to go have a bowel movement with this. Once he has a bowel movement, the pain goes away. Denies any nausea, vomiting, unintentional weight loss. Has been noticing more soft/loose stool since this pain has started. Denies any blood in stool. Has been taking pantoprazole, and dicyclomine. Does not think pantoprazole his help much, but reports significant relief of pain with Bentyl. No family history of colon cancer or inflammatory bowel disease. Previous endoscopy: LA grade B esophagitis with for his grade 2A ulcer at GE junction status post 3 clips. Small hiatal hernia. Patient was supposed to follow up within 3 months for follow-up endoscopy, but lost to follow-up. EGD 08/2022? * Grade B esophagitis (biopsy) * Previously placed endoclips at GEJ * Small healing gastric ulcer (biopsy) * Normal duodenum (biopsy) Path: A.? Duodenum, biopsy:? Duodenal mucosa within normal limits. B.? Stomach, random, biopsy:? Antral-type and oxyntic mucosa with mild chronic inactive inflammation; no Helicobacter organisms seen. C.? Stomach, healing ulcer, biopsy:? Oxyntic mucosa with mild chronic inactive inflammation; no Helicobacter organisms seen. D.? Esophagus, lower, biopsy:? Active esophagitis (maximum eosinophil count 2 per high powered field). 09/15/22: Feels significantly better and almost back to baseline since starting Omeprazole. Has not had any black stools but has noticed 1-2 times BRBPR on wiping. Also reports sensation of swelling in throat. Was told by his dentist that he has infected tonsils and pt is currently awaiting appt with ENT for further evaluation. His main concern is natural history and complications of lonstanding GERD and treatment options. 11/23/22 - EGD Normal esophagus Normal stomach Normal duodenum 12/08/22: No GI complaints at this time. Reports adequate control of sx with PPI therapy. Has been on Omeprazole 20 for more than 8 weeks now. Has decent adherence to med, occ skips a day here or there. 05/30/23: No GI complaints at this time. However reports a flare earlier this month which necessitated increase in Omeprazole to 20mg BID x 2 weeks. Now has decreased to 10mg BID. Reports adequate control of sx with PPI therapy. 02/20/24: Here for follow-up. Reports symptom flared up after some dietary indiscretion earlier this month. PCP had increased his dose to 20 mg b.i.d.. Feeling better on that. Has not heard back from [facility] surgery. Per documentation, patient needs to see [facility] 1st before he can be seen by [facility] surgery. Also reports occasional rectal bleeding with stools that are hard and pellet- like. Sometimes also has to strain. [facility] Medical History History of upper gastrointestinal bleeding Depression Surgical History History of esophagogastroduodenoscopy (EGD) Family History Father Diabetes HTN (hypertension) Paternal Grandfather Diabetes HTN (hypertension) Paternal Grandmother HTN (hypertension) Social History Patient Tobacco Use Status: Never used Tobacco Substance Use Type: Marijuana service: No Current occupational status: employed Review of Systems Const All systems reviewed & are unremarkable except as noted in HPI and below Physical Exam Vital Signs: Last Vital Signs Pulse 92 02/20/24 15:40 BP 111/64 02/20/24 15:40 BMI result Body Mass Index 22.5 No apparent distress Nonicteric Abdomen soft, nondistended rectal Moni Dc MA present as die inspector. No ext hemorrhoids, no fissures or tag. medium internal hemorrhoids. no blood on gloved finger. Alert and oriented x3, normal gait Assessment & Plan Assessment & Plan (1) Internal hemorrhoids: Code(s): K64.8 - Other hemorrhoids Category: Medical (2) Altered bowel function: Code(s): R19.8 - Other specified symptoms and signs involving the digestive system and abdomen Category: Medical (3) GERD with esophagitis: Code(s): K21.00 - Gastro-esophageal reflux disease with esophagitis, without bleeding Category: Medical Plan 1. GERD with esophagitis: As above, pt interested in surgical tx for GERD including minimally invasive procedures. Will follow up on the referral again. Msg sent to office team. Cont PPI in the meantime. 2. BRBPR Exam consistent with bleeding hemorrhoids - aggravated by constipation and straining. CBC 02/14 without any drop in H/H consistent with low grade bleeding. Plan: - Avoid constipation and straining. Can take OTC senna or miralax to manage constipation. - avoid lifting heavy weights - increase hydration and fiber intake - anusol supp x 7 days - no red flags to warrant urgent colo at this time but can be considered if sx persist despite the above or bleeding worsens. Pt to call office in that case. Medications: New hydrocortisone 1% 1 appl AK DAILY 28.4 grams 0RF 10 days K64.8 - Other hemorrhoids hydrocortisone 1% 1 appl AK DAILY 28.4 grams 0RF 10 days K64.8 - Other hemorrhoids sennosides (senna) 8.6 mg PO BEDTIME 90 tabs 0RF hydrocortisone 1% 1 appl AK DAILY 28.4 grams 0RF 10 days K64.8 - Other hemorrhoids Coding Level of Care Code Est Pt Level 4 (87606) Diagnoses Internal hemorrhoids K64.8 Altered bowel function R19.8 GERD with esophagitis K21.00
[2024-02-20 15:40] VITALS: BP 111/64; PULSE 92; BMI 22.5
== END 2024-02-20 16:36 | disposition home or self-care (01) ==
LOC: HO.HGI 15:36
PROVIDERS: PCP Family Medicine; Visit Provider Internal Medicine
DX: K64.8 Other hemorrhoids (principal); R19.8 Other specified symptoms and signs involving the digestive system and abdomen; K21.00 Gastro-esophageal reflux disease with esophagitis, without bleeding
CPT/HCPCS: 99214

== ENCOUNTER → 2024-02-20 15:36 | Outpatient (BNVA) | payer OTHER, SELFPAY | PROVIDERS: PCP Family Medicine; Visit Provider Internal Medicine ==

== ENCOUNTER → 2024-03-14 10:46 | Outpatient (REF) | payer OTHER, SELFPAY ==
--- NOTE | 2024-03-14 10:50 | CA_ITS ---
Transthoracic Echocardiogram Patient (Last, First, Middle): Arash Guerraaballo Gab, S Gender: Male Date of : 2000 Age: 24 Procedure Date: 03/14/2024 Procedure Type: Transthoracic Echocardiogram Location: OP Height: 172.72 cm Weight: 66.23 kg BSA: 1.79 m2 Heart Rate: bpm BP: 102 / 68 mmHg General Production Laborer: TO Referring MD: Montse Brar DO Symptoms: R53.83 FATIGUE Study Quality: Fair ECG Rhythm: Sinus Conclusions: - The left ventricular systolic function is mildly decreased. The calculated ejection fraction is 52% by biplane method. - No obvious valvular pathology seen on this study. Findings Left Ventricle Normal left ventricular cavity size. There is normal left ventricular wall thickness. The left ventricular systolic function is mildly decreased. The calculated ejection fraction is 52% by biplane method. There is mild global hypokinesis. Diastolic function is normal for age. LV peak GLS -17.8% (borderline). Right Ventricle Normal right ventricular cavity size. There is low normal right ventricular systolic function. Atria Both atria are normal in size. Aortic Valve There is a normal trileaflet aortic valve. There is no aortic valve stenosis. There is no aortic valve regurgitation. Mitral Valve The mitral valve appears normal. There is trace mitral valve regurgitation. There is no mitral valve stenosis. Pulmonic Valve There is trace pulmonic valve regurgitation. Tricuspid Valve There is trace tricuspid valve regurgitation. There is no evidence of pulmonary hypertension. Great Vessels The asc aorta is normal in size. Venous The inferior vena cava is normal in size and collapses greater than 50% with inspiration. Pericardium/Pleural There is no evidence of pericardial effusion. Prior Study Comparison Changes noted compared to prior study dated: 12/26/2021. Slightly decreased LVEF. Recommendations, Care & Conclusions No obvious valvular pathology seen on this study. Measurements 2D Linear Measurements IVSd: 0.73 0.6-0.9/0.6-1.0 cm LVIDd: 4.65 3.9-5.3/4.2-5.9 cm LVIDd Index: 2.60 2.4-3.2/2.2-3.1 cm/m2 LVIDs: 3.29 2.0-3.6 cm LVPWd: 0.76 0.7-1.1 cm LA Diam: 3.10 2.7-3.8/3.0-4.0 cm LAIDs Index: 1.73 1.5-2.3 cm/m2 LV Mass: 136.17 67-162/88-224 g LV Mass Index: 76.07 43-95/49-115 g/m2 LVOT Diam: 2.10 3.0+(-)1.3 cm 2D Systolic Function EF 4C: 51.50 >55% EF 2C: 51.90 >55% EF BiP: 52.20 >55% Mitral Valve MV Pk E: 0.54 MV PK A: 0.31 MV Decel Time: 177.00 E/A: 1.70 E'Lateral: 12.30 E'Medial: 9.90 E/E' Med: 5.50 E/E' Lat: 4.40 PHT: 52.00 MVA PHT: 4.23 Decel [place]: 3.07 Aortic Valve AoV Pk Roberto: 0.99 AoV Mn Roberto: 0.66 AoV VTI: 0.21 AoV Pk Grad: 4.00 Aov Mn Grad: 2.00 ROGELIO Cont.VTI: 2.87 LVOT LVOT Pk Roberto: 0.87 LVOT Mn Roberto: 0.54 LVOT VTI: 0.17 LVOT Pk Grad: 3.00 LVOT Mn Grad: 1.00 LVOT Diam: 2.10 LVOT Area: 3.46 Diastolic Function MV Pk E: 0.54 MV Pk A: 0.31 E/A: 1.70 E'Medial: 9.90 E/E' Med: 5.50 E' Laterial: 12.30 E/E' Lat: 4.40 Right Ventricle TAPSE (mm): 18.10 TVS' Roberto: 9.57 Tricuspid Valve TR Pk Roberto: 1.70 TR Pk Grad: 12.00 RA Press: 3.00 RVSP: 15.00 Great Vessels Aorta Sinus of Valsalva: 2.84 2.0-3.5 cm Ao Asc: 2.50 2.1-3.4 cm Updated in Other Vendor System with Status of Final Butch Negron MD electronically signed on 03/15/2024 12:28:26 PM with status of Final
== END ==
LOC: HO.CARD 10:46
PROVIDERS: PCP Family Medicine; Visit Provider Family Medicine
DX: R53.83 Other fatigue (principal)
CPT/HCPCS: 93306; 93356

== ENCOUNTER → 2024-03-14 10:50 | Outpatient (BNV) | payer OTHER, SELFPAY | PROVIDERS: PCP Family Medicine; Visit Provider Internal Medicine | DX: I51.89 Other ill-defined heart diseases (principal); R93.1 Abnormal findings on diagnostic imaging of heart and coronary circulation | CPT/HCPCS: 93306; 93356 ==

== ENCOUNTER 2024-04-28 12:47 | Outpatient (REF) | payer OTHER, SELFPAY ==
--- NOTE | ~2024-04-28 | MM_ITS ---
EXAMINATION: MM DIAGNOSTIC DIGITAL BREAST TOMOSYNTHESIS, BILATERAL US BREAST LIMITED, BILATERAL MAMMOGRAPHY: CLINICAL INFORMATION: 24-year-old male with a palpable lump in the right subareolar region. COMPARISON: Mammography: No prior studies for comparison. TECHNIQUE: Digital breast tomosynthesis is performed in both the craniocaudal and mediolateral oblique views along with computer-aided detection (CAD). Synthesized 2D images are generated from the tomosynthesis. FINDINGS: There are scattered areas of fibroglandular density (ACR BI-RADS breast composition Category b). There are no significant masses, abnormal calcifications, or other abnormalities. There is trace, bilateral benign gynecomastia slightly more pronounced on the right. This is located in the subareolar regions. ULTRASOUND: CLINICAL INFORMATION: 24-year-old male with a palpable lump in the right subareolar region. COMPARISON: None TECHNIQUE: Targeted sonographic evaluation was performed using a high frequency linear transducer. Selected archived documentation. FINDINGS: RIGHT BREAST: The subareolar region of the right breast was imaged with ultrasound. The left subareolar region was also imaged for comparison. There is minimal right subareolar gynecomastia. There is no suspicious finding. LEFT BREAST: There is trace left subareolar gynecomastia. MM/MM tomosynthesis diagnostic BI IMPRESSION: Mild right gynecomastia and trace left gynecomastia. OVERALL ASSESSMENT: Mammography: BI-RADS 2 - Benign Findings Ultrasound: BI-RADS 2 - Benign Findings RECOMMENDATION: 1. Patient should be managed based on the clinical impression. 2. Otherwise, routine annual screening mammography. Results were provided to the patient at time of visit by the technologist. This patient's information was entered into a reminder system with a target due date for their next mammogram.
== END 2024-04-28 12:48 | disposition home or self-care (01) ==
LOC: HO.MAMMO 12:47
PROVIDERS: PCP Family Medicine; Visit Provider Nurse Practitioner Primary Care
DX: N63.41 Unspecified lump in right breast, subareolar (principal); N63.42 Unspecified lump in left breast, subareolar
CPT/HCPCS: 76642; 77062; 77066

== ENCOUNTER → 2024-04-28 13:00 | Outpatient (BNV) | payer OTHER, SELFPAY | PROVIDERS: PCP Family Medicine; Visit Provider Radiology Diagnostic Radiology | DX: N63.41 Unspecified lump in right breast, subareolar (principal) | CPT/HCPCS: 76642; 77062; 77066 ==

== ENCOUNTER 2024-05-15 16:00 | Outpatient (RCR) | payer OTHER, SELFPAY | END 2024-06-25 12:42 | disposition home or self-care (01) | LOC: HO.PT 16:00 | PROVIDERS: PCP Family Medicine; Visit Provider Family Medicine | DX: M25.561 Pain in right knee (principal); M25.562 Pain in left knee | CPT/HCPCS: 97110; 97140; 97161; 97530 ==

== ENCOUNTER 2024-07-15 11:10 | Day surgery (SDC) | payer OTHER, SELFPAY ==
--- OUTSIDE RECORDS SUMMARY | 2024-07-15 11:12 | XMS_ITS | Continuity of Care Document ---
Author Organization [facility] Address [address] [place] [address] [address] [place] [address]- Care Team Providers Care Sourcing Associate Name Role Phone Montse Brar DO Primary Care Physician Encounter [facility] Date(s): 11/06/23 - 12/06/23 [facility] [address] [place] [address]- us Patient Care team information Care Team Personnel Name: Montse Brar DO Position: [facility] Outreach Member Role: PCP Address: Address: [address] [place] [id number]
[2024-07-15 12:02] VITALS: BP 108/56; PULSE 72; RESP 16; TEMP 36.8; O2SAT 98; BMI 22.5
--- NOTE | 2024-07-15 12:02 | MHC.SHP ---
Pre-Procedural Eval Section A - 24 Hr Update-Section A only Date of Service: 07/15/24 Section B - Complete if H&P > 30 days Chief Complaint: Gastro-esophageal reflux disease with esophagitis, Details of Present Illness: History of upper gastrointestinal bleeding Depression Surgical History History of esophagogastroduodenoscopy (EGD) Present Medications: see Short Stay Collaborative assessment Allergies: Allergies Allergy/AdvReac Type Severity Reaction Status Date / Time No Known Allergies Allergy Verified 07/15/24 11:55 [No Known Allergies*] Review of Systems Review of Systems Comment: 10 point ROS negative Exam Exam Comment: Gen appear: No acute distress HEENT: no icterus Chest: No overt resp distress Abd: soft, nontender, nondistended Psych: Stable affect, answering questions appropriately Neuro: A/Ox3 noted to move all extremities spontaneously Ext: no peripheral edema Plan Diagnosis/Plan: Unchanged I have reviewed the history and physical and performed a pertinent physical examination on my patient. No changes have occurred unless specified. Time Spent With Patient Time: Total time managing care of this patient today ____ minutes.
--- NOTE | 2024-07-15 12:20 | P.CONAN_ITS ---
[facility] Active Problems Active Problems: All Active Problems Internal hemorrhoids (Acute) Gastritis (Acute) GERD with esophagitis (Acute) Altered bowel function (Acute) Central abdominal pain (Acute) Past Medical History Medical History History of upper gastrointestinal bleeding Depression Functional capacity: independent ambulation Family History Family History Father Diabetes HTN (hypertension) Paternal Grandfather Diabetes HTN (hypertension) Paternal Grandmother HTN (hypertension) Family history of problems with anesthesia: No Surgical History Surgical History Corral teeth extracted History of esophagogastroduodenoscopy (EGD) History of Problems with Anesthesia: No Social History Social History Are you a primary animal care technician to a significant other at home: No Do you presently have visiting nurse or other home services: No Patient Tobacco Use Status: Never used Tobacco Use of substances other than those prescribed or required for medical reasons: No Substance Use Type: Marijuana Have you been hit, kicked, punched, or otherwise hurt by someone within the past year? If so, by whom?: No Are you DNR?: No Advance Directives: No Advance Directives Information Provided: Yes Recently lost weight without trying: No How much weight loss: Not applicable Eating poorly because of decreased appetite: No Nutrition screen score: 0 Nutrition Risks: No Nutritional Risk Poor oral hygiene: No service: No Current occupational status: employed Meds Allergies Allergy/AdvReac Type Severity Reaction Status Date / Time No Known Allergies Allergy Verified 07/15/24 11:55 [No Known Allergies*] Exam Height,Weight and Vital Signs: Height 5 ft 8 in Weight 67.132 kg Last Vital Signs Temp 98.2 F 07/15/24 12:02 Pulse 72 07/15/24 12:02 Resp 16 07/15/24 12:02 BP 108/56 L 07/15/24 12:02 Pulse Ox 98 07/15/24 12:02 O2 Del Method Room Air 07/15/24 12:02 Airway Mallampati Class: II TM Dist: >3cm Neck ROM: Full Heart: RRR Lungs: CTA Assessment and Plan Assessment Anesthesia Assessment: Anesthesia Plan Discussed and Chart Reviewed Final Anesthetic Review Family History of Problems with Anesthesia: No History of Problems with Anesthesia: No NPO: Yes ASA Class: II Final Preanesthetic Review: Meds/Allgs Chart Reviewed, Consent Obtained/Reviewed and Anes Risks/Benef Reviewed Patient Risk: Low Procedure Risk: Low Anesthetic Plan Anesthetic Plan: MAC: Disposition: Standard PACU
[2024-07-15] MEDS: Lactated Ringers 1,000 ML 80 ML IVCONT (12:40)
--- NOTE | 2024-07-15 13:05 | P.OP_ITS ---
Operative Note Operative Note Date of Service: 07/15/24 Narrative: Procedure: Esophagogastroduodenoscopy Endoscopist: Brittani Woodson MD Indication: Epigastric pain, hx of esophagitis Anesthesia Provider: Dr Blanca Rodriguez Anesthesia Type: MAC ?? EGD Procedure:?? The procedure, indications, preparation and potential complications were reviewed with the patient, who indicated understanding and gave written informed consent to proceed. A physical exam was performed. The endoscope was introduced through the mouth, and advanced to the second part of duodenum. The mucosa was carefully examined on slow withdrawal of the endoscope. The patient tolerated the procedure well. There were no immediate complications.? ? EGD Findings:? * Esophagus:? Normal mucosa noted in the entire esophagus. The Z line was at 40 cm. There was a small hiatal hernia noted with a diaphragmatic pinch at 42 cm. Two Endoclips were noted to be still attached at GE junction from previous endoscopy 03/2021. Middle and lower esophageal biopsies were obtained to rule out eosinophilic esophagitis. * Stomach:? Mild erythema was noted in the antrum. Remaining mucosa was normal. Retroflexion was performed in the cardia revealing Hill grade 2 hiatal hernia (this seemed to be moreso due to the clips preventing complete closure of the lumen). * Duodenum:? Mild erythema and edema of the duodenal bulb. Cold forceps biopsies were taken from the duodenal bulb and the 2nd portion of the duodenal to rule out celiac sprue. ? EGD Impressions:? * Normal esophagus mucosa (biopsy) * Previous Endoclips x2 still attached at GEJ * Hiatal hernia * Mild gastritis (biopsy) * Peptic duodenitis (biopsy) ?? Recommendations:?? * Continue PPI therapy. Will likely need it indefinitely as develops esophagitis secondary to GERD, when he is off PPI. * Avoid NSAIDs. * Unable to view barium swallow images 10/2023- [facility] sent to see if Rad can upload to PACS so they can be reviewed. * Pt missed appt with [facility] for discussion re anti-reflux surgery. Was reminded to call them to book appt. Above has been reviewed with the patient.
[2024-07-15 13:10] VITALS: BP 106/58; PULSE 86; RESP 16; TEMP 36.8; O2SAT 95
--- NOTE | 2024-07-15 13:22 | HO.POSTANES ---
Post Anesthesia Evaluation Post Anesthesia Evaluation Date of Service: 07/15/24 Vital Signs: Vital Signs Temp Pulse Resp BP Pulse Ox O2 Del Method 07/15/24 13:10 98.2 F 86 16 106/58 L 95 Room Air 07/15/24 12:02 98.2 F 72 16 108/56 L 98 Room Air Anesthesia: Monitored Mental Status: Awake Pain Control: Satisfactory Nausea/Vomiting: None Hydration: Adequate Anesthesia-Related Issues: No Anes. Related Issues
[2024-07-15 13:25] VITALS: BP 108/67; PULSE 70; RESP 16; O2SAT 97
[2024-07-15 13:40] VITALS: BP 105/63; PULSE 82; RESP 16; O2SAT 97
[2024-07-15 13:55] VITALS: BP 105/59; PULSE 68; RESP 16; TEMP 36.8; O2SAT 97
== END 2024-07-15 14:13 | disposition home or self-care (01) ==
PROVIDERS: PCP Family Medicine; Visit Provider Internal Medicine
PROC: 0DJ08ZZ Inspection of Upper Intestinal Tract, Via Natural or Artificial Opening Endoscopic (ICD-10-PCS; CPT 43235; principal; 2024-07-15 13:10)
DX: K29.80 Duodenitis without bleeding (principal); K29.70 Gastritis, unspecified, without bleeding; K21.00 Gastro-esophageal reflux disease with esophagitis, without bleeding; K44.9 Diaphragmatic hernia without obstruction or gangrene; Q39.8 Other congenital malformations of esophagus
CPT/HCPCS: 43239; 88305; 88313; 88342; J2003; J2704

== ENCOUNTER → 2024-07-15 11:10 | Outpatient (BNV) | payer OTHER, SELFPAY | PROVIDERS: PCP Family Medicine; Visit Provider Internal Medicine | DX: K29.70 Gastritis, unspecified, without bleeding (principal); K29.80 Duodenitis without bleeding; K21.00 Gastro-esophageal reflux disease with esophagitis, without bleeding | CPT/HCPCS: 43239 ==

== ENCOUNTER 2024-08-22 12:37 | Outpatient (AMB) | payer OTHER, SELFPAY ==
--- NOTE | 2024-08-22 12:40 | A.OFFVIS_ITS ---
Vital Signs 08/22/24 12:42 Height 5 ft 8 in Weight 147 lb 11.355 oz BMI 22.5 BP 116/59 L Blood Pressure Location Lt brachial Position Sitting Pulse 75 Intake Visit Reasons: Esophageal Discomfort Intake Note: Gab presents in the office as a follow up for discomfort in the esophagus. CC: He states that he was having the discomfort but he does not feel anything at this time. He states that at this time he is feeling okay. Allergies No Known Allergies [No Known Allergies*] Allergy (Verified 08/22/24 12:45) HPI Comments Details: This is a 22-year-old gentleman with hx of upper GI bleeding secondary to Brenda-Stock tear versus esophageal ulcer 2020, grade B esophagitis and gastric ulcer 08/2022 who is here for follow up. Initial visit 07/2022: He presents for follow-up for abdominal pain and changes in bowel habits. Patient states that for the last 2-3 months, he has been having central abdominal pain localized above his umbilicus that starts every time he eats something. No specific food triggers identified. Last for at least 30 minutes. Does not describe any radiation. He often has the urgency to go have a bowel movement with this. Once he has a bowel movement, the pain goes away. Denies any nausea, vomiting, unintentional weight loss. Has been noticing more soft/loose stool since this pain has started. Denies any blood in stool. Has been taking pantoprazole, and dicyclomine. Does not think pantoprazole his help much, but reports significant relief of pain with Bentyl. No family history of colon cancer or inflammatory bowel disease. Previous endoscopy: LA grade B esophagitis with for his grade 2A ulcer at GE junction status post 3 clips. Small hiatal hernia. Patient was supposed to follow up within 3 months for follow-up endoscopy, but lost to follow-up. EGD 08/2022? * Grade B esophagitis (biopsy) * Previously placed endoclips at GEJ * Small healing gastric ulcer (biopsy) * Normal duodenum (biopsy) Path: A.? Duodenum, biopsy:? Duodenal mucosa within normal limits. B.? Stomach, random, biopsy:? Antral-type and oxyntic mucosa with mild chronic inactive inflammation; no Helicobacter organisms seen. C.? Stomach, healing ulcer, biopsy:? Oxyntic mucosa with mild chronic inactive inflammation; no Helicobacter organisms seen. D.? Esophagus, lower, biopsy:? Active esophagitis (maximum eosinophil count 2 per high powered field). 09/15/22: Feels significantly better and almost back to baseline since starting Omeprazole. Has not had any black stools but has noticed 1-2 times BRBPR on wiping. Also reports sensation of swelling in throat. Was told by his dentist that he has infected tonsils and pt is currently awaiting appt with ENT for further evaluation. His main concern is natural history and complications of lonstanding GERD and treatment options. 11/23/22 - EGD Normal esophagus Normal stomach Normal duodenum 12/08/22: No GI complaints at this time. Reports adequate control of sx with PPI therapy. Has been on Omeprazole 20 for more than 8 weeks now. Has decent adherence to med, occ skips a day here or there. 05/30/23: No GI complaints at this time. However reports a flare earlier this month which necessitated increase in Omeprazole to 20mg BID x 2 weeks. Now has decreased to 10mg BID. Reports adequate control of sx with PPI therapy. 02/20/24: Here for follow-up. Reports symptom flared up after some dietary indiscretion earlier this month. PCP had increased his dose to 20 mg b.i.d.. Feeling better on that. Has not heard back from [facility] surgery. Per documentation, patient needs to see [facility] 1st before he can be seen by [facility] surgery. Also reports occasional rectal bleeding with stools that are hard and pellet- like. Sometimes also has to strain. 07/15/24: * Normal esophagus mucosa (biopsy) * Previous Endoclips x2 still attached at GEJ * Hiatal hernia * Mild gastritis (biopsy) * Peptic duodenitis (biopsy)?? Path A. Duodenum, biopsy: Duodenal mucosa within normal limits. B. Stomach, random, biopsy: Oxyntic mucosa with mild chronic inactive inflammation; no Helicobacter organisms seen. C. Esophagus, lower, biopsy: - Cardiofundic-type mucosa with mild chronic inactive inflammation; no intestinal metaplasia seen. - Active esophagitis (maximum eosinophil count 1 per high powered field). D. Esophagus, middle, biopsy: Squamous epithelium within normal limits; no inflammation seen 08/22/24: here for follow up. To recall, the EGD in Jul was done due to pt's complaint of severe retrosternal pain and discomfort on eating (see workloads for communication) Today, no acute concerns. EGD results and bx reviewed. Reassured that esophagitis remains well controlled with PPI therapy. He continues to be interested in surgical options and will be calling [facility] to vicky his missed appt. In terms of hemorrhoids, he had not needed to use topical steroids as sx resolved prev with resolution of constipation and pt was hesitant to use the applicator. Now has return of discomfort and pressure on sitting. Reminded can utilise topical hydrocort now. [facility] Medical History History of upper gastrointestinal bleeding Depression Surgical History [place] teeth extracted History of esophagogastroduodenoscopy (EGD) Family History Father Diabetes HTN (hypertension) Paternal Grandfather Diabetes HTN (hypertension) Paternal Grandmother HTN (hypertension) Social History Are you a primary personal care aid to a significant other at home: No Do you presently have visiting nurse or other home services: No Patient Tobacco Use Status: Never used Tobacco Substance Use Type: Marijuana service: No Current occupational status: employed Review of Systems Const All systems reviewed & are unremarkable except as noted in HPI and below Physical Exam Vital Signs: Last Vital Signs Pulse 75 08/22/24 12:42 BP 116/59 L 08/22/24 12:42 BMI result Body Mass Index 22.5 No apparent distress Nonicteric Abdomen soft, nondistended Alert and oriented x3, normal gait Assessment & Plan Assessment & Plan (1) GERD with esophagitis: Code(s): K21.00 - Gastro-esophageal reflux disease with esophagitis, without bleeding Category: Medical (2) Internal hemorrhoids: Code(s): K64.8 - Other hemorrhoids Category: Medical Plan 1. GERD with esophagitis: As above, pt interested in surgical tx for GERD including minimally invasive procedures despite good endoscopic control on PPI therapy. Referral is all set from our end. Pt missed initial consultation at [facility] and will be calling to vicky. Plan: - Decrease omeprazole to 20mg once daily 2. BRBPR Prev exam consistent with bleeding hemorrhoids. Pt hesitant to utilise the applicator that comes with the hydrocort cream. Advised that can use pinky finger to gently apply the ointment at bedtime followed by good hand hygiene. Plan: - Avoid constipation and straining. Can take OTC senna or miralax to manage constipation. - avoid lifting heavy weights - increase hydration and fiber intake - topical hydrocort x 10-14 days Follow up after pt has been seen by [facility] surgery Medications: Changed From omeprazole 20 mg PO BID 60 caps 2RF K21.00 - Gastro-esophageal reflux disease with esophagitis, without bleeding To omeprazole 20 mg PO DAILY 90 days 90 caps 2RF K21.00 - Gastro-esophageal reflux disease with esophagitis, without bleeding Coding Level of Care Code Est Pt Level 4 (01926) Diagnoses GERD with esophagitis K21.00 Internal hemorrhoids K64.8
[2024-08-22 12:42] VITALS: BP 116/59; PULSE 75; BMI 22.5
== END 2024-08-22 13:21 | disposition home or self-care (01) ==
PROVIDERS: PCP Family Medicine; Visit Provider Internal Medicine
DX: K21.00 Gastro-esophageal reflux disease with esophagitis, without bleeding (principal); K64.8 Other hemorrhoids
CPT/HCPCS: 99214

== ENCOUNTER → 2024-08-22 12:37 | Outpatient (BNVA) | payer OTHER, SELFPAY | PROVIDERS: PCP Family Medicine; Visit Provider Internal Medicine ==

== ENCOUNTER 2024-12-18 08:07 | Outpatient (REF) | payer OTHER, SELFPAY ==
[2024-12-18 10:31] LABS: Hemoglobin 14.7 g/dl (14.0-18.0); Mean Corpuscular HGB Conc 33.4 g/dl (31.0-36.0); Mean Corpuscular Hemoglobin 27.2 pg (27.0-33.0); Mean Corpuscular Volume 81.5 fL (80.0-98.0); Mean Platelet Volume 9.1 fL (9.4-12.4); Platelet Count 333 X10*3/uL (160-400); Red Cell Distribution Width 13.7 % (11.0-16.0); White Blood Count 7.2 X10*3/uL (4.8-10.8)
[2024-12-18 10:39] LABS: Estimated Average Glucose 108 mg/dL; Hemoglobin A1c % 5.4 % (<6.0); Total Hemoglobin (HGBA1C) 3811.7672 umol/L
[2024-12-18 10:59] LABS: HBsAGNum1 0.28 S/CO (0.00-0.99); HIV AB/AG Nonreactive (Nonreactive); HIV Num 1 0.06 S/CO (0.00-0.99); Hepatitis B Surface Antigen Negative (Negative)
[2024-12-18 11:00] LABS: HBS Num1 1.28 mIU/mL (0-7.99); HBc Num1 0.06 S/CO (0.00-0.79); Hepatitis B Core Antibody Nonreactive (Nonreactive); ~HepC Num1 0.11 S/CO (0.00-0.79); ~Hepatitis B Surface Antibody NONREACTIVE (Nonreactive); ~Hepatitis C Antibody Nonreactive (Nonreactive)
[2024-12-18 11:01] LABS: Alanine Aminotransferase 25 U/L (0-40); Albumin Level 4.1 g/dL (3.5-5.0); Alkaline Phosphatase 59 U/L (39-117); Anion Gap 10 (12-20); Aspartate Amino Transferase 21 U/L (5-37); Bilirubin Direct 0.2 mg/dL (0.0-0.5); Bilirubin Total 0.7 mg/dL (0.0-1.0); Blood Urea Nitrogen 9 mg/dL (9-16); Carbon Dioxide 27 mmol/L (22-29); Chloride 107 mmol/L (96-108); Cholesterol 144 mg/dL (<200); Estimated Glomerular Filt Rate > 60; Free T4 (Free Thyroxine) 1.14 ng/dL (0.71-1.85); Glucose Random 97 mg/dL (60-115); HCG Quantitative < 2 mIU/mL; HDL Cholesterol 40 mg/dL (>40); LDL Cholesterol Calculated 93 mg/dL (<100); Potassium 3.8 mmol/L (3.3-5.1); Sodium 140 mmol/L (135-145); Thyroid Stimulating Hormone 1.66 uIU/mL (0.32-4.0); Total Protein 7.7 g/dL (6.5-8.0); Triglycerides 57 mg/dL (<150); Vitamin D 25-OH Total 15.2 ng/mL (>30)
[2024-12-18 15:01] LABS: CT PCR NOT DETECTED (Not Detect.); NG PCR NOT DETECTED (Not Detect.)
[2024-12-19 11:58] LABS: Lutenizing Hormone 3.4 mIU/mL (1.5-9.3)
[2024-12-21 19:19] LABS: RPR Rapid Plasma Reagin NON-REACTIVE (NON-REACTIVE)
[2024-12-23 01:53] LABS: Testosterone, Total 557 ng/dL (250-1100)
[2024-12-24 04:10] LABS: Hepatitis A Antibody IgG Nonreactive (Nonreactive); ~Hepatitis A Antibody IgG 0.24 S/CO (0.00-0.99)
[2024-12-31 02:19] LABS: Estradiol Ultra Sensitive 55 pg/mL (< OR = 29)
== END 2024-12-18 08:08 | disposition home or self-care (01) ==
LOC: HO.10HDL 08:07
PROVIDERS: Visit Provider Family Medicine
DX: F41.8 Other specified anxiety disorders (principal); K21.9 Gastro-esophageal reflux disease without esophagitis; L21.9 Seborrheic dermatitis, unspecified; N62 Hypertrophy of breast; R93.1 Abnormal findings on diagnostic imaging of heart and coronary circulation; R53.83 Other fatigue; G47.30 Sleep apnea, unspecified; R49.8 Other voice and resonance disorders; R09.89 Other specified symptoms and signs involving the circulatory and respiratory systems; Z68.22 Body mass index [BMI] 22.0-22.9, adult; M76.899 Other specified enthesopathies of unspecified lower limb, excluding foot; M76.891 Other specified enthesopathies of right lower limb, excluding foot; R68.89 Other general symptoms and signs; Z00.00 Encounter for general adult medical examination without abnormal findings
CPT/HCPCS: 36415; 80048; 80061; 80076; 82306; 82670; 83002; 83036; 84403; 84439; 84443; 84702; 85027; 86592; 86704; 86706; 86708; 86803; 87340; 87389; 87491; 87591

== ENCOUNTER → 2025-01-01 14:54 | Outpatient (REF) | payer OTHER, SELFPAY ==
--- NOTE | 2025-01-01 14:57 | CA_ITS ---
Transthoracic Echocardiogram Patient (Last, First, Middle): Arash BorjalloGab S Gender: Male Date of : 2000 Age: 24 Procedure Date: 01/01/2025 Procedure Type: Transthoracic Echocardiogram Location: OP Height: 172.72 cm Weight: 68.04 kg BSA: 1.81 m2 Heart Rate: 68 bpm BP: 105 / 55 mmHg Cutter Hot Knife: RITA Referring MD: Montse Brar DO Symptoms: JARED EF HYPOKINESIS ABNORMAL EKG R93.1 Study Quality: Adequate ECG Rhythm: Sinus Conclusions: - The left ventricular systolic function is normal. The visually estimated ejection fraction is between 55-60%. - No obvious valvular pathology seen on this study. Findings Left Ventricle Normal left ventricular cavity size. There is normal left ventricular wall thickness. The left ventricular systolic function is normal. The visually estimated ejection fraction is between 55-60%. There is no evidence of regional wall motion abnormalities. Diastolic function is normal for age. LV peak GLS -20.2% (normal). Right Ventricle Normal right ventricular cavity size. There is low normal right ventricular systolic function. Atria Both atria are normal in size. Aortic Valve There is a normal trileaflet aortic valve. There is no aortic valve stenosis. There is no aortic valve regurgitation. Mitral Valve The mitral valve appears normal. There is no mitral valve regurgitation. There is no mitral valve stenosis. Pulmonic Valve The pulmonic valve is likely normal. Tricuspid Valve Normal tricuspid valve structure. There is trace tricuspid valve regurgitation. There is no evidence of pulmonary hypertension. Great Vessels The asc aorta and aortic arch are normal in size. Venous The inferior vena cava is normal in size and collapses greater than 50% with inspiration. Pericardium/Pleural There is no evidence of pericardial effusion. Prior Study Comparison Changes noted compared to prior study dated: 03/14/2024. LVEF slightly higher. Recommendations, Care & Conclusions No obvious valvular pathology seen on this study. Measurements 2D Linear Measurements IVSd: 0.70 0.6-0.9/0.6-1.0 cm LVIDd: 4.72 3.9-5.3/4.2-5.9 cm LVIDd Index: 2.61 2.4-3.2/2.2-3.1 cm/m2 LVIDs: 2.99 2.0-3.6 cm LVPWd: 0.72 0.7-1.1 cm LA Diam: 2.60 2.7-3.8/3.0-4.0 cm LAIDs Index: 1.44 1.5-2.3 cm/m2 LV Mass: 131.02 67-162/88-224 g LV Mass Index: 72.39 43-95/49-115 g/m2 LVOT Diam: 2.10 3.0+(-)1.3 cm 2D Systolic Function EF 4C: 65.30 >55% EF 2C: 60.60 >55% EF BiP: 62.50 >55% Mitral Valve MV Pk E: 0.71 MV PK A: 0.48 MV Decel Time: 241.00 E/A: 1.50 E'Lateral: 15.70 E'Medial: 12.90 E/E' Med: 5.50 E/E' Lat: 4.50 PHT: 71.00 MVA PHT: 3.10 Decel [place]: 2.93 Aortic Valve AoV Pk Roberto: 1.22 AoV Mn Roberto: 0.91 AoV VTI: 0.24 AoV Pk Grad: 6.00 Aov Mn Grad: 4.00 ROGELIO Cont.VTI: 2.93 LVOT LVOT Pk Roberto: 1.13 LVOT Mn Roberto: 0.77 LVOT VTI: 0.20 LVOT Pk Grad: 5.00 LVOT Mn Grad: 3.00 LVOT Diam: 2.10 LVOT Area: 3.46 Diastolic Function MV Pk E: 0.71 MV Pk A: 0.48 E/A: 1.50 E'Medial: 12.90 E/E' Med: 5.50 E' Laterial: 15.70 E/E' Lat: 4.50 Right Ventricle TAPSE (mm): 19.90 TVS' Roberto: 9.68 Tricuspid Valve TR Pk Roberto: 1.82 TR Pk Grad: 13.00 RA Press: 3.00 RVSP: 16.00 Great Vessels Aorta Sinus of Valsalva: 2.90 2.0-3.5 cm Ao Asc: 2.70 2.1-3.4 cm Pulmonary Valve PV Pk Roberto: 1.06 Peak PV Grad: 4.00 Updated in Other Vendor System with Status of Final Butch Negron MD electronically signed on 01/02/2025 4:15:23 PM with status of Final
--- OUTSIDE RECORDS SUMMARY | 2025-01-01 16:23 | XMS_ITS | Encounter Summary ---
Author Organization [employer] Address [address] [facility] [address] [place] [address] Care Team Providers Care Reel Man Name Role Phone Montse Brar DO Primary Care Provider Encounter Details Date Type Department Care Team (Latest Contact Info) Description 11/06/2018 Abstract [facility] CONVERSIONS Dental, Provider, DDS Social History Tobacco Use Types Packs/Day Years Used Date Smoking Tobacco: Never Assessed Sex and Gender Information Value Date Recorded Sex Assigned at Male 07/31/2022 10:34 AM EDT Legal Sex Male 10:34 AM EDT Gender Identity Male 07/31/2022 10:34 AM EDT Sexual Orientation Straight 07/31/2022 10 :34 AM EDT documented as of this encounter Plan of Treatment Upcoming Encounters Date Type Department Care Team (Late st Contact Info) Description 04/15/2025 3:00 PM EDT Office Visit [facility] ADULT DENTAL [address] [place] [address] Viola, Elsa [address] [place] [address] documented as of this encounter Visit Diagnoses Not on filedocumented in this encounter Care Teams Reel Man Relationship Specialty Start Date End Date Montse Brar DO [address] [place] [address] PCP - General Family Medicine 10/09/18 documented as of this encounter
--- OUTSIDE RECORDS SUMMARY | 2025-01-01 16:23 | XMS_ITS | Encounter Summary ---
Author Organization [employer] Address [address] [facility] [address] [place] [address] Care Team Providers Care Liquor Commissioner Name Role Phone Montse Brar DO Primary Care Provider Encounter Details Date Type Department Care Team (Latest Contact Info) Description 03/18/2021 Abstract [facility] CONVERSIONS Dental, Provider, DDS Social History Tobacco [...] Description 04/15/2025 3:00 PM EDT Office Visit [facility] ADULT DENTAL [address] [place] [address] Viola, Elsa [address] [place] [address] documented as of this encounter Visit Diagnoses Not on filedocumented in this encounter Care Teams Liquor Commissioner Relationship Specialty Start Date End Date Montse Brar DO [address] [place] [address] PCP - General Family Medicine 10/09/18 documented as of this encounter
--- OUTSIDE RECORDS SUMMARY | 2025-01-01 16:23 | XMS_ITS | Data Portability ---
Author Organization [place] [facility], Allergy Address [address] [address] Care Team Providers Care Hand Coremaker Name Role Phone MERON CARRIZALES Primary Care Provider Assessment Encounter Date Assessment Date Assessment LastModified by Organization Details LastModified Time 07/23/2024 07/23/2024 Patient describes vocal fatigue with prolonged use at work as well as when singing. Fiberoptic laryngoscopy was benign today with no nodules present. Recommend voice therapy. His reflux is managed with long-term omeprazole but he continues to have occasional breakthrough. This likely contributes somewhat to his vocal changes [email or web address] Not available 07/23/2024 13:29:19 Plan of Treatment Reminders Order Date Submit Date Provider Last Modified By Organization Details Last Modified Time Details Appointments None recorded. Lab None recorded. Referral speech therapy referral - Referral for speech therapy. Thank you. 2023 024 [email or web address] 2 [facility], [address] [place] [address] [place], [address], 09:18:00 Procedures None recorded. Surgeries None recorded. Imaging None recorded. Medication Orders None recorded. Patient TargetsNo targets recorded. Patient InstructionsNo instructions recorded. Reason for Referral Referral for speech therapy. Thank you. Referring Physician: Clayton Oliveira, Otolaryngology, Encounter Date: 07/23/2024 Problems Name Problem SNOMED Code Status Onset Date Resolution Date Notes Provider Name and Address Organization Details Recorded Time Chronic disease of tonsils AND/OR adenoids 61549441 Active 2022 Calculus , tonsil; Note: Date Diagnose d: 3 11:28 AM (J35.8) Not Available [facility] 4 03:30:10 Gastroesoph ageal reflux disease without esophagitis 332064132 Active 2022 Gastro-e sophagea l reflux disease without esophagi tis; Note: Date Diagnose d: 3 11:33 AM (K21.9) CLAYTON OLIVEIRA MD [address] [place] [address],[place] [address], [facility] [place], [address] , [facility] - [facility] 4 13:24:33 Vocal fatigue 4693021 Active 2023 CLAYTON OLIVEIRA MD [address] [place] [address],[place] [address], [facility] [place], [address] , [facility] - [facility] 4 13:28:08 Problem Notes None recorded. Procedures Surgical History Date Name Laterality Status Provider Name and Address Organization Details Recorded Time 07/23/2024 FOL_DP completed CLAYTON OLIVEIRA MD [address] [place] [address],[place] [address], [place], [address], [facility] 07/23/2024 13:27:56 Imaging Results None recorded. Procedure Notes None recorded. Medical Equipment None Reported. Allergies No known drug allergies Medications Name Sig Start Date Stop Date Status Note LastModified by Organization Details LastModified Time omeprazole 10 mg capsule,del ayed release 07/23 completed Not Available Not Available Not Available polymyxin B sulfate 10,000 unit-trimet hoprim 1 mg/mL eye drops active Not Available Not Available Not Available omeprazole 20 mg capsule,del ayed release active Not Available Not Available Not Available amoxicillin 875 mg-potassiu m clavulanate 125 mg tablet 07/23 completed Not Available Not Available Not Available hydrocortis one 1 % topical cream with perineal applicator 07/23 completed Not Available Not Available Not Available sodium fluoride 1.1 % dental cream USE TO BRUSH TEETH AT BEDTIME EVERY EVENING, SPIT OUT, DO NOT RINSE FOR 30 MINUTES. 07/23 completed Not Available Not Available Not Available Artificial Tears ([id number] omell-glyce rin) 1 %-0.2 %-0.2 % eye drops INSTILL 1 DROP INTO THE AFFECTED EYE(S) EVERY 4 TO 6 HOURS NEEDED 07/23 completed Not Available Not Available Not Available Vitals Date Recorded Body height Body mass index (BMI) Body weight Provider Name and Address Organization Details Last Updated DateTime 07/23/2024 172.72 cm 22 kg/m2 25199.89 g Zulma Mcghee MA [facility] 07/23/2024 13:09:26 Social History None recorded. Functional Status None recorded. Mental Status None recorded. Family History Nothing Reported. Medical History No medical history recorded. Past Encounters Encounter ID Performer Location Encounter Start Date Encounter Closed Date Diagnosis/Indication Diagnosis SNOMED-CT Code Diagnosis ICD10 Code Diagnosis Note CLAYTON OLIVEIRA MD [facility] [address] [address] 07/23/2024 12:57:03 07/23/2024 13:29:33 Gastroesophageal reflux disease without esophagitis 468923768 K21.9 Vocal fatigue 4632556 R4 9.8 Health Concerns Section Related Observation LastModified by Organization Detai ls LastModified Time None Recorded Concern Status LastModified by Organization Details LastModified Time None Recorded Advance Directives Directive None Recorded Payers Encounter Date Sequence Insurance Name Policy Number Policy Feliciano Covered Member ID Feliciano Member ID Guarantor Name 07/23/2024 1 [employer] OF [facility] [id number] Alexandra Herrera [id number] Gab Cabrera Notes Date Note Type Note Provider Name and Address Organization Details Recorded Time 07/23/2024 text/html vocal fatiguehig h vocal demand (office work calling patients) at work but may lose voicealso gets fatigue when singing (BMdr) only 1-2 songsnot worked with vocal assistant track and field coach in past+gastritis w esophagitis, exterminator helper termite omeprazole. some breakthrough PV 04/24/23 Kenyatta - tonsil stones, conservative management CLAYTON OLIVEIRA MD [address] [place] [address], [phone], [facility] 07/23/2024 13:29:34
--- OUTSIDE RECORDS SUMMARY | 2025-01-01 16:23 | XMS_ITS | Encounter Summary ---
Author Organization [employer] Address [address] [facility] [address] [place] [address] Care Team Providers Care Sales Contractor Name Role Phone Montse Brar DO Primary Care Provider Encounter Details Date Type Department Care Team (Latest Contact Info) Description 03/22/2022 Abstract [facility] CONVERSIONS Dental, Provider, DDS Social History Tobacco [...] Description 04/15/2025 3:00 PM EDT Office Visit [facility] ADULT DENTAL [address] [place] [address] Viola, Elsa [address] [place] [address] documented as of this encounter Visit Diagnoses Not on filedocumented in this encounter Care Teams Sales Contractor Relationship Specialty Start Date End Date Montse Brar DO [address] [place] [address] PCP - General Family Medicine 10/09/18 documented as of this encounter
--- OUTSIDE RECORDS SUMMARY | 2025-01-01 16:24 | XMS_ITS | Encounter Summary ---
Author Organization [employer] Address [address] [facility] [address] [place] [address] Care Team Providers Care Tool Grinder Operator Surface Name Role Phone Montse Brar DO Primary Care Provider + [phone] Reason for Visit * Reason Onset Date Comments Appointment Request 04/08/2024 Encounter Details Date Type Department Care Team ([facility] st Contact Info) Description 04/08/2024 Telephone [facility] [address] [place] [address] Montse Brar DO [address] [place], [place] [phone] Appointment Request Social History Tobacco Use Types Packs/Day Years Used Date Smoking Tobacco: Never Passive Smoke Exposure: Current Smokeless Tobacco: Never Alcohol Use Standard Drinks/Week Comments Never 0 (1 standard drink = 0.6 oz pur e alcohol) Depression Answer Date Recorded Patient Health Questionnaire-9 Score 0 06/08/2023 Housing Stability Answer Date Recorded What is your housing situation today? I have lyudmila gonzáles 07/20/[address] you li ve. Do you have problems with any of the following? None of the above 07/20/2023 Food Insecurity Answer Date Recorded Within the past 12 months, y ou worried that your food would run out before you got money to buy more: Never True 07/20/2023 Within the past 12 months,th e food you bought just didn't last and you didn't have enough money to get more: Never True Transportation Answer Date Recorded In the past 12 months, has l ack of transportation kept you from medical appts, meetings, work or from getting things needed for daily living? No 07/20/2023 Utilities Answer Date Recorded In the past 12 months, has t he electric, gas, oil or water company threatened to shut off services in your home? No 07/20/2023 Depression Answer Date Recorded Patient Health Questionnaire-2 Score 0 06/08/2023 Sex and Gender Information Value Date Recorded Sex Assigned at Male 07/31/2022 10:34 AM EDT Legal Sex Male 10:34 AM EDT Gender Identity Male 07/31/2022 10:34 AM EDT Sexual Orientation Straight 07/31/2022 10 :34 AM EDT documented as of this encounter Miscellaneous Notes * Telephone Encounter - Lee An - 04/08/2024 3:45 PM EDT Tc from pt requesting to reschedule appt for 04/10. Pt stated they have not gotten ultrasound done and would to have that completed before following up with pcp. Please contact pt at [phone]. documented in this encounter Plan of Treatment Upcoming Encounters Date Type Department Care Team (Late st Contact Info) Description 04/15/2025 3:00 PM EDT Office Visit [facility] ADULT DENTAL [address] [place] [address] Elsa Rod [address] [place] [address] documented as of this encounter Visit Diagnoses Not on filedocumented in this encounter Additional Health Concerns Assessment Noted Time PHQ-9 Depression Total Score: 0 06/08/20 23 11:06 AM EDT documented as of this encounter Care Teams Tool Grinder Operator Surface Relationship Specialty Start Date End Date Montse Brar DO [address] [place] [address] PCP - General Family Medicine 10/09/18 documented as of this encounter
--- OUTSIDE RECORDS SUMMARY | 2025-01-01 16:24 | XMS_ITS | Encounter Summary ---
Author Organization [employer] Address [address] [place] [address] Care Team Providers Care Telecommunications Engineer Name Role Phone Motnse Brar DO Primary Care Provider + [phone] Reason for Visit * Reason Comments Med Refill Encounter Details Date Type Department Care Team (Late st Contact Info) Description 08/17/2023 Refill [facility] [address] [place] [address] Ben Castillo DDS [address] [place] [address] Social History Tobacco Use Types Packs/Day Years [...] encounter Miscellaneous Notes * Telephone Encounter - Jorge L Pete DMD - 08/17/2023 8:53 AM EST Approving, but needs appt for additional refills. documented in this encounter Plan of Treatment Upcoming Encounters Date Type Department Care Team (Late st Contact Info) Description 04/15/2025 3:00 PM EDT Office Visit [facility] [address] [place] [address] Viola, Elsa [address] [place] [address] documented as of this encounter Visit Diagnoses Not on filedocumented in this encounter Additional Health Concerns Assessment Noted Time PHQ-9 Depression Total Score: 0 06/08/20 23 11:06 AM EDT documented as of this encounter Care Teams Telecommunications Engineer Relationship Specialty Start Date End Date Montse Brar DO [address] [place] [address] PCP - General Family Medicine 10/09/18 documented as of this encounter
--- OUTSIDE RECORDS SUMMARY | 2025-01-01 16:24 | XMS_ITS | Clinical Summary ---
Author Organization [employer] Address [address] [facility] [address] [place] [address] Care Team Providers Care Order Processor Name Role Phone Zonia Montse Primary Care Provider [phone] Allergies No known active allergies Medications Artificial Tears 0.2-0.2-1 % solution INSTILL 1 DROP INTO THE AFFECTED EYE(S) EVERY 4 TO 6 HOURS NEEDED 15 mL 1 08/27/20 23 Active omeprazole (PriLOSEC) [address] capsule Take 1 capsule (20 mg) by mouth before breakfast and before evening meal. Do not crush or chew. 60 capsule 11 02/13/20 24 025 Active cholecalcifer ol (Vitamin D-3) 50 MCG (1999) capsuleIndica tions:Vitamin D deficiency Take 1 capsule (50 mcg) by mouth Once per day. 90 capsule 3 02/15/20 24 Active naproxen (Naprosyn) 500 MG tablet Take 1 tablet (500 mg) by mouth if needed in the morning and at bedtime for mild pain. 40 tablet 1 12/18/19 25 026 Active acetaminophen (Tylenol 8 Hour) 650 MG ER tablet Take 1 tablet (650 mg) by mouth every 8 (eight) hours if needed for mild pain. Do not crush, chew, or split. 40 tablet 1 12/18/19 25 025 Active cetirizine (ZyrTEC) 10 MG tablet Take 1 tablet (10 mg) by mouth Once per day. 30 tablet 12/18/19 25 026 Active tiZANidine (Zanaflex) 2 MG tablet Take 1 tablet (2 mg) by mouth every 6 (six) hours if needed for muscle spasms. 60 tablet 1 12/18/19 25 026 Active Diclofenac Sodium 1 % gelIndication s:Tendinitis of knee,Tendinit is of right hip Apply topically to affected area four times a day as needed for pain. 150 g 12/18/19 25 Active fluticasone (Flonase Allergy Relief) 50 MCG/ACT nasal sprayIndicati ons:Influenza -like symptoms Administer 2 sprays into each nostril Once per day. Shake gently. Before first use, prime pump. After use, clean tip and replace cap. 16 g 11 12/18/19 25 026 Active Fiber-Lax 625 MG tablet TAKE 1 TABLET BY MOUTH TWICE DAILY 05/12/20 22 025 Discontinued dicyclomine (Bentyl) 10 MG capsule TAKE 1 CAPSULE BY MOUTH THREE TIMES DAILY NEEDED FOR ABDOMINAL PAIN 05/12/20 025 Discontinued simethicone (Mylicon) 125 MG chewable tablet CHEW 1 TABLET BY MOUTH FOUR TIMES DAILY NEEDED FOR GAS 05/12/20 025 Discontinued ketoconazole (NIZOral) 2 % shampooIndica tions:Seborrh eic dermatitis APPLY TO THE AFFECTED AREA(S) TWICE A WEEK, WAIT 3 DAYS BETWEEN EACH USE 240 mL 3 12/15/19 025 Discontinued loratadine (Claritin) 10 MG tabletIndicat ions:Tonsilli th Take 1 tablet (10 mg) by mouth in the morning. 30 tablet 11 01/25/20 025 Discontinued acetaminophen (Tylenol) 500 MG tablet Take 2 tablets (1,000 mg) by mouth every 6 (six) hours if needed for moderate pain or fever for up to 25 doses. 50 tablet 01/25/20 025 Discontinued ibuprofen 400 MG tablet Take 1 tablet (400 mg) by mouth every 6 (six) hours if needed for moderate pain or fever for up to 30 doses. 30 tablet 01/25/20 025 Discontinued fluticasone (Flonase Allergy Relief) 50 MCG/ACT nasal sprayIndicati ons:Influenza -like symptoms Administer 1 spray into each nostril in the morning. Shake gently. Before first use, prime pump. After use, clean tip and replace cap. 16 g 12 01/25/20 23 025 Discontinued(Re order (will not trigger notification to Pharmacy)) Diclofenac Sodium 1 % gelIndication s:Tendinitis of knee,Tendinit is of right hip Apply topically to affected area four times a day as needed for pain. 150 g 3 06/08/20 23 025 Discontinued(Re order (will not trigger notification to Pharmacy)) baclofen (Lioresal) 10 MG tablet Take 1 tablet (10 mg) by mouth if needed in the morning, at noon, and at bedtime for muscle spasms. 60 tablet 1 06/08/20 025 Discontinued famotidine (Pepcid) 40 MG tablet TAKE 1 TABLET BY MOUTH AT BEDTIME 90 tablet 1 07/11/20 23 025 Discontinued SF 5000 Plus 1.1 % cream USE AT BEDTIME EVERY NIGHT, SPIT OUT, DO NOT RINSE FOR 30 MINUTES 51 g 08/17/20 23 025 Discontinued Sodium Fluoride (PreviDent 5000 Booster Plus) 1.1 % paste Apply 1 application to teeth 2 times daily. 112 g 3 08/20/20 025 Discontinued Active Problems Problem Noted Date Diagnosed Date Dental calculus 10/31/2023 Seborrheic dermatitis 06/08/2023 Depression with anxiety 06/08/2023 History of COVID-19 12/14/2022 Chronic gastroesophageal reflux disease 10/17/19 Overview (11/23/2022): EGD, 11/23/22, Dr. Woodson: EGD Impressions: * Normal esophagus * Normal stomach * Normal duodenum Recommendations: * Continue PPI therapy. Will likely need it indefinitely as develops esophagitis secondary to GERD, when he is off PPI. * Avoid NSAIDs. History of esophagitis 10/17/2022 Tonsillolith 10/02/2022 Vitamin D deficiency 11/27/2018 Resolved Problems Problem Noted Date Diagnosed Date Resolved Date Headache 10/02/2022 10/17/2022 Encounters Date Type Department Care Team Description 12/19/2024 Telephone [facility] [address] [place] [phone] Montse Brar DO Results 12/17/2024 9:30 AM EDT Office Visit [facility] [address] [place] [phone] Montse Brar DO Routine history and physical examination of adult (Primary Dx); Depression with anxiety; Chronic gastroesophageal reflux disease; Seborrheic dermatitis; Gynecomastia; Abnormal echocardiogram; Fatigue, unspecified type; Sleep-disordered breathing; Voice fatigue; Throat clearing; BMI 22.0-22.9, adult; Tendinitis of knee; Tendinitis of right hip; Influenza-like symptoms 12/17/2024 Travel 12/16/2024 Travel 12/09/2024 Patient Outreach [facility] [address] [place] [phone] Gianna Nielsen Pre-visit Planning (SDOH screening negative and tobacco screening negative) 12/05/2024 8:00 AM EST Office Visit [facility] [address] [place] [address] Bruna Tsang DDS Encounter for dental examination (Primary Dx); Dental plaque 11/28/2024 Travel 11/27/[address] [phone] Montse Brar DO Appointment Request 10/15/2024 2:00 PM EST Office Visit [facility] [address] [place] [phone] Elsa Rod Dental plaque (Primary Dx); Dental caries from Last 3 Months Immunizations Name Administration Dates Next Due DTaP 03/01/2004, 0,2000,05/03 HPV 9-Valent 03/03/2022,09/10/2019,10/09/2018 Hep B, Adolescent or Pediatric 2000 Hep B, adult 2000,2000 HiB, unspecified 11/21/2001,2000, 0 Hib (PRP-T) 2000 IPV 03/01/2004, 0,2000,05/03 Influenza Injectable Quadriv alant Preservative Free IIV4 MDCK 06/20/2022 Influenza injectable quadriv alent preservative free 06/28/2020,06/20/2019,10/09/2018 Influenza, IIV3, injectable 06/24/2021 MMR 12/19/2001,10/15/2001 Meningococcal MCV4P [id number]-135 10/09/2018,04/21/20 11 Pfizer Covid-19 Vaccine 12+ 06/24/2021 Pfizer Covid-19 Vaccine 12+ teresa-sucrose (Molina Cap) 10/24/2021 Tdap 03/03/2022,04/21/2011 Varicella 04/21/2011,11/21/2001 Family History Medical History Relation Name Comments Diabetes Father Hypertension Father Anemia Mother Hypertension Mother Anxiety disorder Paternal Grandfather Depression Paternal Grandfather Diabetes Paternal Grandfather Hypertension Paternal Grandfather Anxiety disorder Paternal Grandmother Depression Paternal Grandmother Diabetes Paternal Grandmother Hypertension Paternal Grandmother Relation Name Status Comments Father Mother Paternal Grandfather Paternal Grandmother Alive Social History Tobacco Use Types Packs/Day Years Used Date Smoking Tobacco: Never Passive Smoke Exposure: Current Smokeless Tobacco: Never Tobacco Cessation:Counseling Given: Not Answered Alcohol Use Standard Drinks/Week Comments Never 0 (1 standard drink = 0.6 oz pur e alcohol) Depression Answer Date Recorded Patient Health Questionnaire-9 Score 3 12/17/2024 Patient Health Questionnaire-9 Score 3 12/17/2024 Last PHQ-9: Questionnaire Data Not on file 0 12/17/2024 Housing Stability Answer Date Recorded What is [...] got money to buy more: Never True 08/14/2024 Within the past 12 months,th e food [...] Date Recorded Patient Health Questionnaire-2 Score 0 12/17/2024 Internet Access Answer Date Recorded Internet Access Q1 Yes 08/14/2024 Internet Access Q2 Not on file 08/14/2024 Sex and Gender Information Value Date Recorded Sex Assigned at Male 07/31/2022 10:34 AM EDT Legal Sex Male 10:34 AM EDT Gender Identity Male 07/31/2022 10:34 AM EDT Sexual Orientation Straight 07/31/2022 10 :34 AM EDT Last Filed Vital Signs Vital Sign Reading Time Taken Comments Blood Pressure 122/70 12/17/2024 9:25 AM EDT Pulse 85 12/17/2024 9:25 AM EDT Temperature 36.6 ??C (97.9 ??F) 12/17/2024 9:25 AM ED T Respiratory Rate 19 12/17/2024 9:25 AM EDT Oxygen Saturation 98% 12/17/2024 9:25 AM EDT Inhaled Oxygen Concentration - - Weight 68.2 kg (150 lb 4 oz) 12/17/2024 9:25 AM EDT Height 172.7 cm (5' 8 ) 12/17/2024 9:25 AM EDT Body Mass Index 22.85 12/17/2024 9:25 AM EDT Plan of Treatment Upcoming Encounters Date Type Department Care Team (Late st Contact Info) Description 04/15/2025 3:00 PM EDT Office Visit [facility] [address] [place] [address] Viola, Elsa [address] [place] [address] Health Maintenance Due Date Last Done Comments Family Planning (PISQ) 02/16/2015 COVID-19 Vaccine ( season) 2024 10/24/2021, 06/24/2021, 11/26/2020, Additional history exists Influenza Vaccine (#1) 2024 , 06/24/2021, 06/28/2020, Additional history exists Dental Prophylaxis 04/15/2025 10/15/2024, 0 10/31/2023, 04/20/2023, Additional history exists Dental Oral Exam 06/08/2025 12/05/2024, , 04/20/2023, Additional history exists Dental X-Ray: Full Mouth 08/30/2025 08/29/2022 Dental X-Ray: Bitewings 10/16/2025 10/15/19 25, 10/31/2023, 10/08/2023, Additional history exists SDOH Screening 12/09/2025 12/09/2024 Alcohol/Substance Use Screening 12/17/2025 12/17/2024 Depression Screening 12/17/2025 12/17/2024, 12/18/19 Tobacco Screening 12/17/2025 12/17/2024 DTaP/Tdap/Td Vaccines (7 - Td or Tdap) 03/03/2032 03/03/2022, 04/21/2011, 03/01/2004, Additional history exists Zoster Vaccines (1 of 2) 02/16/2050 RSV Patients and Patients Aged 60 years or older (1 - 1-dose 75+ series) 02/16/2075 Hepatitis B Vaccines Completed 2000, 2000, 2000 HIB Vaccines Completed 11/21/2001, 03/2000, 2000, Additional history exists IPV Vaccines Completed 03/01/2004, 03/2000, 2000, Additional history exists Meningococcal Vaccine Completed 10/09/2018, 011 HPV Vaccines Completed 03/03/2022, 08/31, 10/09/2018 HIV Screening Completed 12/18/2024, 06/01, 11/14/2021, Additional history exists Hepatitis C Screening Completed 12/18/2024 , 06/14/2023, 11/14/2021, Additional history exists Hepatitis A Vaccines Aged Out No long er eligible based on patient's age to complete this topic Pneumococcal Vaccine: Pediatrics (0 to 5 Years) and At-Risk Patients (6 to 49) Years) Aged Out No longer eligible based on patient's age to complete this topic RSV under 20 months Aged Out No longe r eligible based on patient's age to complete this topic Rotavirus Vaccines Aged Out No longer eligible based on patient's age to complete this topic Procedures Procedure Name Priority Date/Time Associated Diagnosis Comments HEPATITIS B CORE AB TOTAL Routine 12/18/2024 8:15 AM EDT Routine history and physical examination of adult Depression with anxiety Chronic gastroesophageal reflux disease Seborrheic dermatitis Gynecomastia Abnormal echocardiogram Fatigue, unspecified type Sleep-disordered breathing Voice fatigue Throat clearing BMI 22.0-22.9, adult Tendinitis of knee Tendinitis of right hip Influenza-like symptoms HEPATITIS A ANTIBODY, TOTAL Routine 12/18/2024 8:15 AM EDT Routine history and physical examination of adult Depression with anxiety Chronic gastroesophageal reflux disease Seborrheic dermatitis Gynecomastia Abnormal echocardiogram Fatigue, unspecified type Sleep-disordered breathing Voice fatigue Throat clearing BMI 22.0-22.9, adult Tendinitis of knee Tendinitis of right hip Influenza-like symptoms HEPATITIS B SURFACE ANTIBODY, QUALITATIVE Routine 12/18/2024 8:15 AM EDT Routine history and physical examination of adult Depression with anxiety Chronic gastroesophageal reflux disease Seborrheic dermatitis Gynecomastia Abnormal echocardiogram Fatigue, unspecified type Sleep-disordered breathing Voice fatigue Throat clearing BMI 22.0-22.9, adult Tendinitis of knee Tendinitis of right hip Influenza-like symptoms RPR (MONITOR) W/REFL TITER Routine 12/18/2024 8:15 AM EDT Routine history and physical examination of adult Depression with anxiety Chronic gastroesophageal reflux disease Seborrheic dermatitis Gynecomastia Abnormal echocardiogram Fatigue, unspecified type Sleep-disordered breathing Voice fatigue Throat clearing BMI 22.0-22.9, adult Tendinitis of knee Tendinitis of right hip Influenza-like symptoms HEPATITIS C AB W/REFL TO HCV RNA, QN, PCR Routine 12/18/2024 8:15 AM EDT Routine history and physical examination of adult Depression with anxiety Chronic gastroesophageal reflux disease Seborrheic dermatitis Gynecomastia Abnormal echocardiogram Fatigue, unspecified type Sleep-disordered breathing Voice fatigue Throat clearing BMI 22.0-22.9, adult Tendinitis of knee Tendinitis of right hip Influenza-like symptoms HIV 1/2 ANTIGEN/ANTIBODY, FOURTH GENERATION W/RFL Routine 12/18/2024 8:15 AM EDT Routine history and physical examination of adult Depression with anxiety Chronic gastroesophageal reflux disease Seborrheic dermatitis Gynecomastia Abnormal echocardiogram Fatigue, unspecified type Sleep-disordered breathing Voice fatigue Throat clearing BMI 22.0-22.9, adult Tendinitis of knee Tendinitis of right hip Influenza-like symptoms HEPATITIS B SURFACE ANTIGEN, EIA Routine 12/18/2024 8:15 AM EDT Routine history and physical examination of adult Depression with anxiety Chronic gastroesophageal reflux disease Seborrheic dermatitis Gynecomastia Abnormal echocardiogram Fatigue, unspecified type Sleep-disordered breathing Voice fatigue Throat clearing BMI 22.0-22.9, adult Tendinitis of knee Tendinitis of right hip Influenza-like symptoms BASIC METABOLIC PANEL Routine 12/18/2024 8:15 AM EDT Routine history and physical examination of adult Depression with anxiety Chronic gastroesophageal reflux disease Seborrheic dermatitis Gynecomastia Abnormal echocardiogram Fatigue, unspecified type Sleep-disordered breathing Voice fatigue Throat clearing BMI 22.0-22.9, adult Tendinitis of knee Tendinitis of right hip Influenza-like symptoms CBC Routine 12/18/2024 8:15 AM EDT Routine history and physical examination of adult Depression with anxiety Chronic gastroesophageal reflux disease Seborrheic dermatitis Gynecomastia Abnormal echocardiogram Fatigue, unspecified type Sleep-disordered breathing Voice fatigue Throat clearing BMI 22.0-22.9, adult Tendinitis of knee Tendinitis of right hip Influenza-like symptoms HEMOGLOBIN A1C Routine 12/18/2024 8:15 AM EDT Routine history and physical examination of adult Depression with anxiety Chronic gastroesophageal reflux disease Seborrheic dermatitis Gynecomastia Abnormal echocardiogram Fatigue, unspecified type Sleep-disordered breathing Voice fatigue Throat clearing BMI 22.0-22.9, adult Tendinitis of knee Tendinitis of right hip Influenza-like symptoms HEPATIC FUNCTION PANEL Routine 12/18/2024 8:15 AM EDT Routine history and physical examination of adult Depression with anxiety Chronic gastroesophageal reflux disease Seborrheic dermatitis Gynecomastia Abnormal echocardiogram Fatigue, unspecified type Sleep-disordered breathing Voice fatigue Throat clearing BMI 22.0-22.9, adult Tendinitis of knee Tendinitis of right hip Influenza-like symptoms VITAMIN D,25-OH,TOTAL,IA Routine 12/18/2024 8:15 AM EDT Routine history and physical examination of adult Depression with anxiety Chronic gastroesophageal reflux disease Seborrheic dermatitis Gynecomastia Abnormal echocardiogram Fatigue, unspecified type Sleep-disordered breathing Voice fatigue Throat clearing BMI 22.0-22.9, adult Tendinitis of knee Tendinitis of right hip Influenza-like symptoms TSH Routine 12/18/2024 8:15 AM EDT Routine history and physical examination of adult Depression with anxiety Chronic gastroesophageal reflux disease Seborrheic dermatitis Gynecomastia Abnormal echocardiogram Fatigue, unspecified type Sleep-disordered breathing Voice fatigue Throat clearing BMI 22.0-22.9, adult Tendinitis of knee Tendinitis of right hip Influenza-like symptoms LIPID PANEL, STANDARD Routine 12/18/2024 8:15 AM EDT Routine history and physical examination of adult Depression with anxiety Chronic gastroesophageal reflux disease Seborrheic dermatitis Gynecomastia Abnormal echocardiogram Fatigue, unspecified type Sleep-disordered breathing Voice fatigue Throat clearing BMI 22.0-22.9, adult Tendinitis of knee Tendinitis of right hip Influenza-like symptoms T4, FREE Routine 12/18/2024 8:15 AM EDT Routine history and physical examination of adult Depression with anxiety Chronic gastroesophageal reflux disease Seborrheic dermatitis Gynecomastia Abnormal echocardiogram Fatigue, unspecified type Sleep-disordered breathing Voice fatigue Throat clearing BMI 22.0-22.9, adult Tendinitis of knee Tendinitis of right hip Influenza-like symptoms LH Routine 12/18/2024 8:15 AM EDT Gynecomastia HCG, TOTAL, QN Routine 12/18/2024 8:15 AM EDT Gynecomastia ESTRADIOL Routine 12/18/2024 8:15 AM EDT Gynecomastia TESTOSTERONE, TOTAL, MALES (ADULT), IA Routine 12/18/2024 8:15 AM EDT Gynecomastia CHLAMYDIA/N. GONORRHOEAE RNA, TMA, UROGENITAL Routine 12/18/2024 8:15 AM EDT Routine history and physical examination of adult Depression with anxiety Chronic gastroesophageal reflux disease Seborrheic dermatitis Gynecomastia Abnormal echocardiogram Fatigue, unspecified type Sleep-disordered breathing Voice fatigue Throat clearing BMI 22.0-22.9, adult Tendinitis of knee Tendinitis of right hip Influenza-like symptoms CASE PRESENTATION, DETAILED AND EXTENSIVE TREATMENT PLANNING Routine 12/05/2024 8:00 AM EST Encounter for dental examination Dental plaque PERIODIC ORAL EVALUATION - ESTABLISHED PATIENT Routine 12/05/2024 8:00 AM EST Encounter for dental examination Dental plaque INTRAORAL - PERIAPICAL EACH ADDITIONAL RADIOGRAPHIC IMAGE Routine 10/15/2024 2:00 PM EST Dental plaque INTRAORAL - PERIAPICAL FIRST RADIOGRAPHIC IMAGE Routine 10/15/2024 2:00 PM EST Dental plaque BITEWINGS - 4 RADIOGRAPHIC IMAGES Routine 10/15/2024 2:00 PM EST Dental plaque ORAL HYGIENE INSTRUCTIONS Routine 10/15/2024 2:00 PM EST Dental plaque Full PROPHYLAXIS - ADULT Routine 10/15/2024 2:00 PM EST Dental plaque 32 EXTRACTION Routine 10/15/2024 12:00 AM EST 17 EXTRACTION Routine 10/15/2024 12:00 AM EST 16 EXTRACTION Routine 10/15/2024 12:00 AM EST 1 EXTRACTION Routine 10/15/2024 12:00 AM EST INTRAORAL - COMPLETE SERIES OF RADIOGRAPHIC IMAGES Routine 08/29/2022 12:00 AM EST from Last 3 Months or Most Recently Relevant to Health Maintenance Results * (ABNORMAL) Vitamin D, 25-Hydroxy, Total, Immunoassay (12/18/2024 8:15 AM EDT) Vitamin D 25-OH Total 15.2(L) >30 ng/mL [facility] Comment: Health Based Reference Values*< 20 ??ng/mL ??Wngfeveto14-83 ng/mL ??Insufficient> 30 ??ng/mL ??Sufficient*Holick MF. N Engl J Med. 2007;[id number]:266-280There is no well-established upper level of normal vitamin Dlevels. Some laboratories use 50 ng/mL as an upper limit ofnormal. However, toxicity is patient-dependent and may occurat any level. Careful correlation with the patient'spresentation is necessary and, if there is concern forvitamin D toxicity, treatment should be consideredirrespective of the serum level.Care must be taken in interpreting Vitamin D results fromdifferent laboratories and methodologies. ??Published datademonstrated that results from patients undergoinghemodialysis may show a negative bias when tested withvarious automated 25-OH vitamin D assays when compared toLC- MS/MS.When testing samples from patients whose predominant form ofVitamin D is Vitamin D2, such as patients receiving VitaminD2 supplementation, results that are subtherapeutic shouldbe confirmed with another method such as LC-MS/MS. Blood Venous blood specimen / Unknown 12/18/2024 8:15 AM EDT 12/18/2024 10:20 AM EDT Montse Brar DO LAB BLOOD ORDERABLES Final R esult Performing Organization Address [facility] Co de Phone Number [facility] [address] [place] [phone] * Hepatitis C Antibody with Reflex to HCV, RNA, Quantitative, Real-Time PCR (12/18/2024 8:15 AM EDT) Hepatitis C Antibody Nonreactive Nonreactive [facility] Comment:Antibodies to HCV no t detected; does not exclude early acuteHCV infection. Blood Venous blood specimen / Unknown 12/18/2024 8:15 AM EDT 12/18/2024 10:20 AM EDT Montse Brar LAB BLOOD ORDERABLES Final R esult Performing Organization Address [facility] Co de Phone Number [facility] [address] [place] [phone] * Hepatitis A Antibody, Total (12/18/2024 8:15 AM EDT) Hepatitis A Antibody IgG Nonreactive Nonreactive [facility] Blood Venous blood specimen / Unknown 12/18/2024 8:15 AM EDT 12/18/2024 10:20 AM EDT Montse Brar DO LAB BLOOD ORDERABLES Final R esult [facility] [address] [place] [phone] * Chlamydia/N. Gonorrhoeae RNA, TMA, Urogenitial (12/18/2024 8:15 AM EDT) CT PCR NOT DETECTED Not Detect. [facility] Comment:A not detected test result does not exclude the possibilityof infection because test results can be affected byimproper specimen collection, concurrent antibiotic therapy,or the number of organisms in the specimen which may bebelow the sensitivity of the test. As with many diagnostictests, results from the Xpert CT/NG assay should beinterpreted in conjunction with other laboratory andclinical data available to the clinician.Xpert CT/NG performance has not been evaluated in patientsless than 14 years of age. The assay should not be used forthe evaluationof suspected sexual abuse or for other medico-legalindications. Additional testing is recommended in anycircumstance when false positive or false negative resultscould lead to adverse medical, social or psychologicalconsequences. NG PCR NOT DETECTED Not Detect. [facility] Comment:A not detected test result does not exclude the possibilityof infection because test results can be affected byimproper specimen collection, concurrent antibiotic therapy,or the number of organisms in the specimen which may bebelow the sensitivity of the test. As with many diagnostictests, results from the Xpert CT/NG assay should beinterpreted in conjunction with other laboratory andclinical data available to the clinician.Xpert CT/NG performance has not been evaluated in patientsless than 14 years of age. The assay should not be used forthe evaluationof suspected sexual abuse or for other medico-legalindications. Additional testing is recommended in anycircumstance when false positive or false negative resultscould lead to adverse medical, social or psychologicalconsequences. Urine Urethral structure / Unknown 12/18/2024 8:15 AM EDT 12/18/2024 10:12 AM EDT Narrative [facility] - 12/18/2024 3:01 PM EDT Urine us Montse Brar DO LAB MICROBIOLOGY - GENERAL O RDERABLES Final Result Performing Organization Address City/[facility]/ZIP Co de Phone Number [facility] [address] [place] [phone] * Hepatitis B surface antigen, EIA (12/18/2024 8:15 AM EDT) Hepatitis B Surface Ag Negative Negative [facility] Blood Venous blood specimen / Unknown 12/18/2024 8:15 AM EDT 12/18/2024 10:18 AM EDT us Montse Brar DO LAB BLOOD ORDERABLES Final R esult Performing Organization Address [facility] Co de Phone Number [facility] [address] [place] [phone] * Hepatitis B Core Antibody, Total (12/18/2024 8:15 AM EDT) Hepatitis B Core Antibody Nonreactive Nonreactive [facility] Blood Venous blood specimen / Unknown 12/18/2024 8:15 AM EDT 12/18/2024 10:20 AM EDT us Montse Brar DO LAB BLOOD ORDERABLES Final R esult Performing Organization Address [facility] Co de Phone Number [facility] [address] [place] [phone] * (ABNORMAL) Estradiol (12/18/2024 8:15 AM EDT) Pathologist [facility] Estradiol Ultra Sensitive 55(A) < OR = 29 pg/mL [facility] Comment:This test was develo ped and its analytical performancecharacteristics have been determined by [employer].It has not been cleared or approved by the FDA. This assayhas been validated pursuant to the CLIA regulations and isused for clinical purposes.THIS TEST WAS PERFORMED AT:[employer]/[place] [id number] [place] [id number] LERMA MD,PHD,FRANCHESKA Blood Venous blood specimen / Unknown 12/18/2024 8:15 AM EDT 12/18/2024 10:18 AM EDT Montse Brar DO LAB BLOOD ORDERABLES Final R esult Performing Organization Address [facility] Co de Phone Number [facility] [address] [place] [phone] * RPR (Monitor) with Reflex to??Titer (12/18/2024 8:15 AM EDT) [facility] RPR (Monitor) w/Refl Titer NON-REACTI VE NON-REACT RICK [facility] Comment:THIS TEST WAS PERFOR MED AT:[employer] [address] [id number] SALOMON MD Rapid Plasma Reagin Ab Titer TNP [facility] Blood Venous blood specimen / Unknown 12/18/2024 8:15 AM EDT 12/18/2024 10:20 AM EDT Montse Brar DO LAB BLOOD ORDERABLES Final R esult Performing Organization Address [facility]/ZIP Co de Phone Number [facility] [address] [place] [phone] * HIV-1/2 Antigen and Antibodies, Fourth Generation, with Reflexes (12/18/2024 8:15 AM EDT) [facility] HIV AB/AG Nonreactive Nonreactive [facility] Comment:HIV-1 p24 Ag and/or HIV-1/HIV-2 Ab not detected.A test result that is nonreactive does not exclude thepossibility of exposure to or infection with HIV-1 and/orHIV-2. Nonreactive results in this assay for individualswith prior exposure to HIV-1 and/or HIV-2 may be due toantigen and antibody levels that are below the limit ofdetection of this assay.The [employer] HIV Ag/Ab Combo assay result andsupplemental assay results should be interpreted inconjunction with the patient's clinical presentation,history and other laboratory results. If the results areinconsistent with clinical evidence, additional testing issuggested to confirm the result. Blood Venous blood specimen / Unknown 12/18/2024 8:15 AM EDT 12/18/2024 10:18 AM EDT Montse Brar DO LAB BLOOD ORDERABLES Final R esult Performing Organization Address City/[facility]/ZIP Co de Phone Number [facility] [address] [place] [phone] * Hepatitis B Surface Antibody, Qualitative (12/18/2024 8:15 AM EDT) [facility] ~Hepatitis B Surface Antibody NONREACTIVE Nonreactive [facility] Comment:Nonreactive: < 8.00 mIU/mL Blood Venous blood specimen / Unknown 12/18/2024 8:15 AM EDT 12/18/2024 10:20 AM EDT Montse Brar Jini LAB BLOOD ORDERABLES Final R esult Performing Organization Address City/[facility]/ZIP Co de Phone Number [facility] [address] [place] [phone] * (ABNORMAL) CBC (12/18/2024 8:15 AM EDT) [facility] White Blood Count 7.2 4.8 - 10.8 X10*3/uL [facility] Red Blood Count 5.40 4.60 - 5.80 X10*6/uL [facility] Hemoglobin 14.7 14.0 - 18.0 g/dl [facility] Hematocrit 44.0 42.0 - 52.0 % [facility] Mean Corpuscular Volume 81.5 80.0 - 98.0 fL [facility] Mean Corpuscular Hemoglobin 27.2 27.0 - 33.0 pg [facility] Mean Corpuscular HGB Conc 33.4 31.0 - 36.0 g/dl [facility] Red Cell Distribution Width 13.7 11.0 - 16.0 % [facility] Platelet Count 333 160 - 400 X10*3/uL [facility] Mean Platelet Volume 9.1(L) 9.4 - 12.4 fL [facility] NRBC Pct Auto 0.0 0.0 - 0.2 /100WBC [facility] NRBC Abs Auto 0.000 0.0 - 0.012 X10*3/uL [facility] Blood Venous blood specimen / Unknown 12/18/2024 8:15 AM EDT 12/18/2024 10:20 AM EDT us Montse Brar DO LAB BLOOD ORDERABLES Final R esult Performing Organization Address City/[facility]/ZIP Co de Phone Number [facility] [address] [place] [phone] * hCG, Total, Quantitative (12/18/2024 8:15 AM EDT) HCG Quantitative <2 mIU/mL [facility] Blood Venous blood specimen / Unknown 12/18/2024 8:15 AM EDT 12/18/2024 10:20 AM EDT Montse Brar DO LAB BLOOD ORDERABLES Final R esult [facility] [address] [place] [phone] * TSH (12/18/2024 8:15 AM EDT) Thyroid Stimulating Hormone 1.66 0.32 - 4.0 uIU/mL [facility] Comment:TSH 3rd Generation ( [facility]) Blood Venous blood specimen / Unknown 12/18/2024 8:15 AM EDT 12/18/2024 10:20 AM EDT [facility] Final R esult Performing Organization Address City/[facility]/ZIP Co de Phone Number [facility] [address] [place] [phone] * T4, Free (12/18/2024 8:15 AM EDT) Free T4 (Free Thyroxine) 1.14 0.71 - 1.85 ng/dL [facility] Blood Venous blood specimen / Unknown 12/18/2024 8:15 AM EDT 12/18/2024 10:20 AM EDT Montse Brar LAB BLOOD ORDERABLES Final R esult [facility] [address] [place] [phone] * Testosterone, Total, males (Adult), IA (12/18/2024 8:15 AM EDT) Testosterone, Total 557 250 - 1100 ng/dL [facility] Comment:For additional infor mation, please refer [email or web address] [place]/faq/[email or web address](This link is being provided for informational/educational purposes only.)This test was developed and its analytical performancecharacteristics have been determined by [employer] [place], [place]. It hasnot been cleared or approved by the U.S. Food and DrugAdministration. This assay has been validated pursuantto the CLIA regulations and is used for clinicalpurposes.THIS TEST WAS PERFORMED AT:[employer]/[place] [id number] [place] [address]UCFLEHL W. MASON,MD,PHD Blood Venous blood specimen / Unknown 12/18/2024 8:15 AM EDT 12/18/2024 10:18 AM EDT Montse Brar DO LAB BLOOD ORDERABLES Final R esult Performing Organization Address [facility]/ZIP Co de Phone Number [facility] [address] [place] [phone] * Hemoglobin A1c (12/18/2024 8:15 AM EDT) Hemoglobin A1c 5.4 <6.0 % [facility] Comment:Hemoglobin A1C Refer ence Range Adults: 4.8 - 6.0 % Non diabetic: < 6.0 % Goal: < 7.0 %Additional Action Suggested: > 8.0 %Note: Hemoglobin A1c results are invalid for patients with abnormal amounts of HbF. Blood transfusions may impact the HbA1c concentration in the patient sample. Estimated Average Glucose 108 mg/dL [facility] Comment:eAG = Estimated ave rage glucose which is %A1C expressed asaverage glucose, using the formula of the U9O-CyabvirPejxheo Glucose study (ADAG), Diabetes Care, Vol.31,#8,May. 2007 Blood Venous blood specimen / Unknown 12/18/2024 8:15 AM EDT 12/18/2024 10:20 AM EDT Montse Brar DO LAB BLOOD ORDERABLES Final R esult Performing Organization Address [facility]/ZIP Co de Phone Number [facility] [address] [place] [address] [phone] * LH (12/18/2024 8:15 AM EDT) Lutenizing Hormone 3.4 1.5 - 9.3 mIU/mL [facility] Comment:THIS TEST WAS PERFOR MED AT:[employer] [place] [id number] SALOMON MD Blood Venous blood specimen / Unknown 12/18/2024 8:15 AM EDT 12/18/2024 10:18 AM EDT us Montse Brar DO LAB BLOOD ORDERABLES Final R esult [facility] [address] [place] [address] [phone] * Hepatic Function Panel (12/18/2024 8:15 AM EDT) Bilirubin, Total 0.7 0.0 - 1.0 mg/dL [facility] Bilirubin, Direct 0.2 0.0 - 0.5 mg/dL [facility] Aspartate Amino Transferase 21 5 - 37 U/L [facility] Alanine Aminotransferase 25 0 - 40 U/L [facility] Total Protein 7.7 6.5 - 8.0 g/dL [facility] Albumin Level 4.1 3.5 - 5.0 g/dL [facility] Alkaline Phosphatase 59 39 - 117 U/L [facility] Blood Venous blood specimen / Unknown 12/18/2024 8:15 AM EDT 12/18/2024 10:20 AM EDT us Montse Brar DO LAB BLOOD ORDERABLES Final R esult [facility] [address] [place], [place] [phone] * (ABNORMAL) Lipid Panel, Standard (12/18/2024 8:15 AM EDT) Triglycerides 57 <150 mg/dL [facility] Comment:Desirable Triglyceri de: less than 150 mg/dLBorderline High Triglyceride 150-199 mg/dLHigh Triglyceride: 200-499 mg/dLVery High Triglyceride: greater than or equal to 5OO mg/dL Cholesterol 144 <200 mg/dL [facility] Comment:Desirable Cholestero l: less than 200 mg/dLBorderline High Cholesterol: 200-239 mg/dLHigh Cholesterol: greater than 239 mg/dL LDL Cholesterol Calculated 93 <100 mg/dL [facility] Comment:Desirable LDL: less than 100 mg/dLNear Optimal/Above Optimal LDL: 110- 129 mg/dLBorderline High LDL: 130-159 mg/dLHigh LDL: 160-189 mg/dLVery High LDL: greater than or equal to 190 mg/dL HDL Cholesterol 40(L) >40 mg/dL [facility] Comment:Desirable HDL: great er than 40 mg/dL Note: This HDL assay may give artificially low results in patients with liver disease. Blood Venous blood specimen / Unknown 12/18/2024 8:15 AM EDT 12/18/2024 10:20 AM EDT us Montse Brar DO LAB BLOOD ORDERABLES Final R esult [facility] [address] [place] [phone] * (ABNORMAL) Basic Metabolic Panel (12/18/2024 8:15 AM EDT) Sodium 140 135 - 145 mmol/L [facility] Potassium 3.8 3.3 - 5.1 mmol/L [facility] Chloride 107 96 - 108 mmol/L [facility] Carbon Dioxide 27 22 - 29 mmol/L [facility] Anion Gap 10(L) 12 - 20 [facility] Urea Nitrogen (BUN) 9 9 - 16 mg/dL [facility] Creatinine, Serum 0.88 0.5 - 1.4 mg/dL [facility] Estimated Glomerular Filt Rate >60 [facility] Comment:Chronic Kidney Disea se: Estimated GFR < 60 mL/min/1.42v2Bdvuyy Kidney Disease: Estimated GFR < 15 mL/min/1.73m2 Glucose 97 60 - 115 mg/dL [facility] Calcium 9.0 8.4 - 10.2 mg/dL [facility] Blood Venous blood specimen / Unknown 12/18/2024 8:15 AM EDT 12/18/2024 10:20 AM EDT us Montse Brar DO LAB BLOOD ORDERABLES Final R esult [facility] [address] [place] [phone] from Last 3 Months Insurance [employer] [place] [facility] [address] [facility] - HSN PARTIAL (MEDICAID) Care Teams Order Processor Relationship Specialty Start Date End Date Montse Brar DO [address] [place] [address] PCP - General Family Medicine 10/09/18
== END ==
LOC: HO.CARD 14:54
PROVIDERS: PCP Family Medicine; Visit Provider Family Medicine
DX: R93.1 Abnormal findings on diagnostic imaging of heart and coronary circulation (principal)
CPT/HCPCS: 93306

== ENCOUNTER → 2025-01-01 14:57 | Outpatient (BNV) | payer OTHER, SELFPAY | PROVIDERS: PCP Family Medicine; Visit Provider Internal Medicine | DX: R94.31 Abnormal electrocardiogram [ECG] [EKG] (principal) | CPT/HCPCS: 93306; 93356 ==

== ENCOUNTER 2025-01-28 12:09 | Outpatient (REF) | payer OTHER, SELFPAY ==
--- OUTSIDE RECORDS SUMMARY | 2025-01-28 13:36 | XMS_ITS | Encounter Summary ---
Author Organization [email or web address] Address [address] [place] [address] Care Team Providers Care Coffee Brewer Name Role Phone BisiMontse uribe Primary Care Provider + [phone] Encounter Details Date Type Department Care Team (Latest Contact Info) Description 01/27/2025 Travel Social History Tobacco Use Types Packs/Day Years [...] Description 04/15/2025 3:00 PM EDT Office Visit [facility] [address] [place] [address] Leroy Rodaris [address] [place] [address] documented as of this encounter Visit Diagnoses Not on filedocumented in this encounter Additional Health Concerns Assessment Noted Time PHQ-9 Depression Total Score: 3 12/18/19 25 10:39 AM EDT documented as of this encounter Care Teams Coffee Brewer Relationship Specialty Start Date End Date Montse Brar DO [address] [place] [phone] PCP - General Family Medicine 10/09/18 documented as of this encounter
--- OUTSIDE RECORDS SUMMARY | 2025-01-28 13:36 | XMS_ITS | Encounter Summary ---
Author Organization [employer] Address [address] [facility] [address] [place] [address] Care Team Providers Care Communication Technician Name Role Phone Montse Brar DO Primary Care Provider Encounter Details Date Type Department Care Team (Latest Contact Info) Description 03/22/2022 Abstract [facility] CONVERSIONS Dental, Provider, DDS Social History [...] PM EDT Office Visit [facility] [address] [place] [address] Viola, Elsa [address] [place] [address] documented as of this encounter Visit Diagnoses Not on filedocumented in this encounter Care Teams Communication Technician Relationship Specialty Start Date End Date Montse Brar DO [address] [place] [address] PCP - General Family Medicine 10/09/18 documented as of this encounter
--- OUTSIDE RECORDS SUMMARY | 2025-01-28 13:36 | XMS_ITS | Clinical Summary ---
Author Organization [employer] Address [address] [facility] [address] [place] [address] Care Team Providers Care Filling Station Equipment Mechanic Name Role Phone Zonia Montse Primary Care Provider [phone] Allergies No known active allergies Medications Artificial Tears 0.2-0.2-1 % solution INSTILL 1 DROP INTO THE AFFECTED EYE(S) EVERY 4 TO 6 HOURS NEEDED 15 mL 1 3 Active omeprazole (PriLOSEC) [address] capsule Take 1 capsule (20 mg) by mouth before breakfast and before evening meal. Do not crush or chew. 60 capsule 11 4 02/13/20 25 Active cholecalciferol (Vitamin D-3) 50 MCG (1999 UT) capsuleIndicati ons:Vitamin D deficiency Take 1 capsule (50 mcg) by mouth Once per day. 90 capsule 3 4 Active naproxen (Naprosyn) 500 MG tablet Take 1 tablet (500 mg) by mouth if needed in the morning and at bedtime for mild pain. 40 tablet 1 5 12/18/19 26 Active cetirizine (ZyrTEC) 10 MG tablet Take 1 tablet (10 mg) by mouth Once per day. 30 tablet 11 5 12/18/19 26 Active tiZANidine (Zanaflex) 2 MG tablet Take 1 tablet (2 mg) by mouth every 6 (six) hours if needed for muscle spasms. 60 tablet 1 5 12/18/19 26 Active Diclofenac Sodium 1 % gelIndications: Tendinitis of knee,Tendinitis of right hip Apply topically to affected area four times a day as needed for pain. 150 g 3 5 Active fluticasone (Flonase Allergy Relief) 50 MCG/ACT nasal sprayIndication s:Influenza-lik e symptoms Administer 2 sprays into each nostril Once per day. Shake gently. Before first use, prime pump. After use, clean tip and replace cap. 16 g 11 5 12/18/19 26 Active acetaminophen (Tylenol 8 Hour) 650 MG ER tablet Take 1 tablet (650 mg) by mouth every 8 (eight) hours if needed for mild pain. Do not crush, chew, or split. 40 tablet 1 5 01/17/20 25 Active Problems Problem Noted Date Diagnosed Date [...] Encounters Date Type Department Care Team Description 01/28/2025 11:30 AM EDT Telemedicine [facility] [address] [place] [address] Montse Brar DO Malodorous urine (Primary Dx); Gynecomastia 01/28/2025 Travel 01/27/2025 Travel 01/26/2025 Telephone [facility] [address] [place] [address] Montse Brar DO Chart prep 12/19/2024 Telephone [facility] [address] [place] [address] Montse Brar DO Results 12/17/2024 9:30 AM EDT Office Visit [facility] [address] [place] [address] Montse Brar DO Routine history and physical examination of adult (Primary Dx); Depression with anxiety; Chronic gastroesophageal reflux disease; Seborrheic dermatitis; Gynecomastia; Abnormal echocardiogram; Fatigue, unspecified type; Sleep-disordered breathing; Voice fatigue; Throat clearing; BMI 22.0-22.9, adult; Tendinitis of knee; Tendinitis of right hip; Influenza-like symptoms 12/17/2024 Travel 12/16/2024 Travel 12/09/2024 Patient Outreach [facility] [address] [place] [address] Gianna Nielsen Pre-visit Planning (SDOH screening negative and tobacco screening negative) 12/05/2024 8:00 AM EST Office Visit [facility] [address] [place] [address] Bruna Tsang DDS Encounter for dental examination (Primary Dx); Dental plaque 11/28/2024 Travel 11/27/2024 Telephone [facility] [address] [place] [address] Montse Brar DO Appointment Request from Last 3 Months Immunizations Name Administration [...] Description 04/15/2025 3:00 PM EDT Office Visit [facility] [address] [place] [address] Viola, Elsa [address] [place] [address] Health Maintenance Due Date Last Done Comments [...] Depression Screening 12/17/2025 12/17/2024, 12/18/19 Tobacco Screening 01/28/2026 01/28/2025 DTaP/Tdap/Td Vaccines (7 - Td or Tdap) 03/03/2032 03/03/2022, 04/21/2011, 03/01/2004, Additional history exists Zoster Vaccines (1 of 2) 02/16/2050 RSV Patients and Patients Aged 60 years or older (1 - 1-dose 75+ series) 02/16/2075 Hepatitis B Vaccines Completed 2000, 2000, 2000 HIB Vaccines Completed 11/21/2001, 03/2000, 2000, Additional history exists IPV Vaccines Completed 03/01/2004, 0 03/2000, 2000, Additional history exists Meningococcal Vaccine [...] EST Encounter for dental examination Dental plaque Full PROPHYLAXIS - ADULT Routine 10/15/2024 2:00 PM EST Dental plaque BITEWINGS - 4 RADIOGRAPHIC IMAGES Routine 10/15/2024 2:00 PM EST Dental plaque INTRAORAL - COMPLETE SERIES OF RADIOGRAPHIC IMAGES Routine 08/29/2022 12:00 AM EST from Last 3 Months or Most Recently Relevant to Health Maintenance Results * (ABNORMAL) Vitamin D, 25-Hydroxy, Total, Immunoassay (12/18/2024 8:15 AM EDT) [facility] Vitamin D 25-OH Total 15.2(L) >30 ng/mL [facility] Comment: Health Based Reference Values*< 20 ??ng/mL ??[id number] ng/mL ??Insufficient> 30 ??ng/mL ??Sufficient*Stacy ALVARADO. N Engl J Med. 2007;357:266-280There is no [...] DO LAB BLOOD ORDERABLES Final R esult [facility] [address] [place] [phone] * Hepatitis C Antibody with Reflex to HCV, RNA, Quantitative, Real-Time PCR (12/18/2024 8:15 AM EDT) Hepatitis C Antibody Nonreactive Nonreactive [facility] Comment:Antibodies to HCV no t detected; does not exclude early acuteHCV infection. Blood Venous blood specimen / Unknown 12/18/2024 8:15 AM EDT 12/18/2024 10:20 AM EDT us Montse Brar DO LAB BLOOD ORDERABLES Final R esult Performing Organization Address City/[facility]/ZIP Co de Phone Number [facility] [address] [place] [phone] * Hepatitis A Antibody, Total (12/18/2024 8:15 AM EDT) Hepatitis A Antibody IgG Nonreactive Nonreactive [facility] Blood Venous blood specimen / Unknown 12/18/2024 8:15 AM EDT 12/18/2024 10:20 AM EDT us Montse Brar DO LAB BLOOD ORDERABLES Final R esult Performing Organization Address City/[facility]/ZIP Co de Phone Number [facility] [address] [place] [phone] * Chlamydia/N. Gonorrhoeae RNA, TMA, Urogenitial (12/18/2024 8:15 AM EDT) CT PCR NOT DETECTED Not Detect. [facility] Comment:A not detected test result does [...] psychologicalconsequences. NG PCR NOT DETECTED Not Detect. [facility] Comment:A not detected test result does [...] AM EDT 12/18/2024 10:12 AM EDT Narrative [facility] - 12/18/2024 3:01 PM EDT Urine us Montse Brar DO LAB MICROBIOLOGY - GENERAL O RDERABLES Final Result [facility] [address] [place] [phone] * Hepatitis B surface antigen, EIA (12/18/2024 8:15 AM EDT) Pathologist [facility] Hepatitis B Surface Ag Negative Negative [facility] Blood Venous blood specimen / Unknown 12/18/2024 8:15 AM EDT 12/18/2024 10:18 AM EDT Montse Zonia DO LAB BLOOD ORDERABLES Final R esult Performing Organization Address [facility] Co de Phone Number [facility] [address] [place] [phone] * Hepatitis B Core Antibody, Total (12/18/2024 8:15 AM EDT) [facility] Hepatitis B Core Antibody Nonreactive Nonreactive [facility] Blood Venous blood specimen / Unknown 12/18/2024 8:15 AM EDT 12/18/2024 10:20 AM EDT Result [facility] Montse Brar DO LAB BLOOD ORDERABLES Final R esult Performing Organization Address [facility] de Phone Number [facility] [address] [place] [phone] * (ABNORMAL) Estradiol (12/18/2024 8:15 AM EDT) [facility] Estradiol Ultra Sensitive 55(A) < OR = 29 pg/mL [facility] Comment:This test was develo ped and its analytical performancecharacteristics have been determined by [employer].It has not been cleared or approved by the FDA. This assayhas been validated pursuant to the CLIA regulations and isused for clinical purposes.THIS TEST WAS PERFORMED AT:[facility]/[employer] [id number] MIRYAM PEREZ [id number] LERMA MD,PHD,FRANCHESKA Blood Venous blood specimen / Unknown 12/18/2024 8:15 AM EDT 12/18/2024 10:18 AM EDT Montse Brar DO LAB BLOOD ORDERABLES Final R esult Performing Organization Address [facility]/ZIP Co de Phone Number [facility] [address] [place] [phone] * RPR (Monitor) with Reflex to??Titer (12/18/2024 8:15 AM EDT) RPR (Monitor) w/Refl Titer NON-REACTI VE NON-REACT RICK [facility] Comment:THIS TEST WAS PERFOR MED AT:[employer] [place] [id number] SALOMON MD Rapid Plasma Reagin Ab Titer TNP [facility] Blood Venous blood specimen / Unknown 12/18/2024 8:15 AM EDT 12/18/2024 10:20 AM EDT Montse Brar LAB BLOOD ORDERABLES Final R esult Performing Organization Address [facility] Co de Phone Number [facility] [address] [place] [phone] * HIV-1/2 Antigen and Antibodies, Fourth Generation, with Reflexes (12/18/2024 8:15 AM EDT) HIV AB/AG Nonreactive Nonreactive [facility] Comment:HIV-1 p24 Ag and/or HIV-1/HIV-2 Ab not detected.A test result that is nonreactive does not exclude thepossibility of exposure to or infection with HIV-1 and/orHIV-2. Nonreactive results in this assay for individualswith prior exposure to HIV-1 and/or HIV-2 may be due toantigen and antibody levels that are below the limit ofdetection of this assay.The [employer] HIV Ag/Ab Combo assay result andsupplemental assay results should be interpreted inconjunction with the patient's clinical presentation,history and other laboratory results. If the results areinconsistent with clinical evidence, additional testing issuggested to confirm the result. Blood Venous blood specimen / Unknown 12/18/2024 8:15 AM EDT 12/18/2024 10:18 AM EDT Montse Brar DO LAB BLOOD ORDERABLES Final R esult Performing Organization Address [facility] Co de Phone Number [facility] [address] [place] [phone] * Hepatitis B Surface Antibody, Qualitative (12/18/2024 8:15 AM EDT) [facility] ~Hepatitis B Surface Antibody NONREACTIVE Nonreactive [facility] Comment:Nonreactive: < 8.00 mIU/mL Blood Venous blood specimen / Unknown 12/18/2024 8:15 AM EDT 12/18/2024 10:20 AM EDT Montse Brar DO LAB BLOOD ORDERABLES Final R esult Performing Organization Address City/[facility] Co de Phone Number [facility] [address] [place] [phone] * (ABNORMAL) CBC (12/18/2024 8:15 AM EDT) [facility] White Blood Count 7.2 4.8 - 10.8 X10*3/uL [facility] Red Blood Count 5.40 4.60 - 5.80 X10*6/uL [facility] Hemoglobin 14.7 14.0 - 18.0 g/dl [facility] Hematocrit 44.0 42.0 - 52.0 % [facility] Mean Corpuscular Volume 81.5 80.0 - 98.0 fL [facility] Mean Corpuscular Hemoglobin 27.2 27.0 - 33.0 pg [facility] Mean Corpuscular HGB Conc 33.4 31.0 - 36.0 g/dl [facility] Red Cell Distribution Width 13.7 11.0 - 16.0 % [facility] Platelet Count 333 160 - 400 X10*3/uL [facility] Mean Platelet Volume 9.1(L) 9.4 - 12.4 fL [facility] NRBC Pct Auto 0.0 0.0 - 0.2 /100WBC [facility] NRBC Abs Auto 0.000 0.0 - 0.012 X10*3/uL [facility] Blood Venous blood specimen / Unknown 12/18/2024 8:15 AM EDT 12/18/2024 10:20 AM EDT Montse Brar DO LAB BLOOD ORDERABLES Final R esult Performing Organization Address City/[facility]/ZIP Co de Phone Number [facility] [address] [place] [phone] * hCG, Total, Quantitative (12/18/2024 8:15 AM EDT) HCG Quantitative <2 mIU/mL [facility] Blood Venous blood specimen / Unknown 12/18/2024 8:15 AM EDT 12/18/2024 10:20 AM EDT Montse Brar DO LAB BLOOD ORDERABLES Final R esult Performing Organization Address City/[facility]/ZIP Co de Phone Number [facility] [address] [place] [phone] * TSH (12/18/2024 8:15 AM EDT) Thyroid Stimulating Hormone 1.66 0.32 - 4.0 uIU/mL [facility] Comment:TSH 3rd Generation ( [facility]) Blood Venous blood specimen / Unknown 12/18/2024 8:15 AM EDT 12/18/2024 10:20 AM EDT Montse Brar DO LAB BLOOD ORDERABLES Final R esult Performing Organization Address City/[facility]/ZIP Co de Phone Number [facility] [address] [place] [phone] * T4, Free (12/18/2024 8:15 AM EDT) Free T4 (Free Thyroxine) 1.14 0.71 - 1.85 ng/dL [facility] Blood Venous blood specimen / Unknown 12/18/2024 8:15 AM EDT 12/18/2024 10:20 AM EDT [facility] BLOOD ORDERABLES Final R esult Performing Organization Address [facility] Co de Phone Number [facility] [address] [place] [phone] * Testosterone, Total, males (Adult), IA (12/18/2024 8:15 AM EDT) Testosterone, Total 557 250 - 1100 ng/dL [facility] Comment:For additional infor conor, please refer tohttp://education.[employer]/faq/TuwtgOwpfvnpbksziTKKWCPQTI735(This link is being provided for informational/educational purposes only.)This test was developed and its analytical performancecharacteristics have been determined by [employer] [place], [place]. It hasnot been cleared or approved by the U.S. Food and DrugAdministration. This assay has been validated pursuantto the CLIA regulations and is used for clinicalpurposes.THIS TEST WAS PERFORMED AT:[id number] [place] [id number] YADAV MD,PHD Blood Venous blood specimen / Unknown 12/18/2024 8:15 AM EDT 12/18/2024 10:18 AM EDT [facility] BLOOD ORDERABLES Final R esult Performing Organization Address [facility]/ZIP Co de Phone Number [facility] [address] [place] [phone] * Hemoglobin A1c (12/18/2024 8:15 AM EDT) Hemoglobin A1c 5.4 <6.0 % [facility] Comment:Hemoglobin A1C Refer ence Range Adults: 4.8 - 6.0 % Non diabetic: < 6.0 % Goal: < 7.0 %Additional Action Suggested: > 8.0 %Note: Hemoglobin A1c results are invalid for patients with abnormal amounts of HbF. Blood transfusions may impact the HbA1c concentration in the patient sample. Estimated Average Glucose 108 mg/dL [facility] Comment:eAG = Estimated ave rage glucose which is %A1C expressed asaverage glucose, using the formula of the Z5G-OyjfvrnDfayrmn Glucose study (ADAG), Diabetes Care, Vol.31,#8,2007 Blood Venous blood specimen / Unknown 12/18/2024 8:15 AM EDT 12/18/2024 10:20 AM EDT us Montse Brar DO LAB BLOOD ORDERABLES Final R esult [facility] [address] [place] [phone] * LH (12/18/2024 8:15 AM EDT) Lutenizing Hormone 3.4 1.5 - 9.3 mIU/mL [facility] Comment:THIS TEST WAS PERFOR MED AT:[facility] [address] [id number] SALOMON MD Blood Venous blood specimen / Unknown 12/18/2024 8:15 AM EDT 12/18/2024 10:18 AM EDT us Montse Brar DO LAB BLOOD ORDERABLES Final R esult [facility] [address] [place] [phone] * Hepatic Function Panel (12/18/2024 8:15 AM EDT) Bilirubin, Total 0.7 0.0 - 1.0 mg/dL [facility] Bilirubin, Direct 0.2 0.0 - 0.5 mg/dL [facility] Aspartate Amino Transferase 21 5 - 37 U/L [facility] Alanine Aminotransferase 25 0 - 40 U/L [facility] Total Protein 7.7 6.5 - 8.0 g/dL [facility] Albumin Level 4.1 3.5 - 5.0 g/dL [facility] Alkaline Phosphatase 59 39 - 117 U/L [facility] Blood Venous blood specimen / Unknown 12/18/2024 8:15 AM EDT 12/18/2024 10:20 AM EDT us Montse Brar DO LAB BLOOD ORDERABLES Final R esult [facility] [address] [place] [phone] * (ABNORMAL) Lipid Panel, Standard (12/18/2024 8:15 AM EDT) Triglycerides 57 <150 mg/dL [facility] Comment:Desirable Triglyceri de: less than 150 mg/dLBorderline High Triglyceride 150-199 mg/dLHigh Triglyceride: 200-499 mg/dLVery High Triglyceride: greater than or equal to 5OO mg/dL Cholesterol 144 <200 mg/dL [facility] Comment:Desirable Cholestero l: less than 200 mg/dLBorderline High Cholesterol: 200-239 mg/dLHigh Cholesterol: greater than 239 mg/dL LDL Cholesterol Calculated 93 <100 mg/dL [facility] Comment:Desirable LDL: less than 100 mg/dLNear Optimal/Above Optimal LDL: 110- 129 mg/dLBorderline High LDL: 130-159 mg/dLHigh LDL: 160-189 mg/dLVery High LDL: greater than or equal to 190 mg/dL HDL Cholesterol 40(L) >40 mg/dL [facility] Comment:Desirable HDL: great er than 40 mg/dL Note: This HDL assay may give artificially low results in patients with liver disease. Blood Venous blood specimen / Unknown 12/18/2024 8:15 AM EDT 12/18/2024 10:20 AM EDT Montse Brar DO LAB BLOOD ORDERABLES Final R esult Performing Organization Address City/[facility]/ZIP Co de Phone Number [facility] [address] [place] [phone] * (ABNORMAL) Basic Metabolic Panel (12/18/2024 8:15 AM EDT) Sodium 140 135 - 145 mmol/L [facility] Potassium 3.8 3.3 - 5.1 mmol/L [facility] Chloride 107 96 - 108 mmol/L [facility] Carbon Dioxide 27 22 - 29 mmol/L [facility] Anion Gap 10(L) 12 - 20 [facility] Urea Nitrogen (BUN) 9 9 - 16 mg/dL [facility] Creatinine, Serum 0.88 0.5 - 1.4 mg/dL [facility] Estimated Glomerular Filt Rate >60 [facility] Comment:Chronic Kidney Disea se: Estimated GFR < 60 mL/min/1.10e9Rsrugi Kidney Disease: Estimated GFR < 15 mL/min/1.73m2 Glucose 97 60 - 115 mg/dL [facility] Calcium 9.0 8.4 - 10.2 mg/dL [facility] Blood Venous blood specimen / Unknown 12/18/2024 8:15 AM EDT 12/18/2024 10:20 AM EDT Montse Brar DO LAB BLOOD ORDERABLES Final R esult Performing Organization Address City/[facility]/ZIP Co de Phone Number [facility] [address] [place] [phone] from Last 3 Months Insurance [employer] [facility] - [place]SN PARTIAL (MEDICAID) Care Teams Filling Station Equipment Mechanic Relationship Specialty Start Date End Date Montse Brar DO [address] [place] [address] PCP - General Family Medicine 10/09/18
--- OUTSIDE RECORDS SUMMARY | 2025-01-28 13:36 | XMS_ITS | Encounter Summary ---
Author Organization [employer] Address [address] [facility] [address] [place] [address] Care Team Providers Care Truck Service Technician Name Role Phone Montse Brar DO Primary Care Provider [phone] Encounter Details Date Type Department Care Team (Latest Contact Info) Description 11/06/2018 Abstract [facility] CONVERSIONS Dental, Provider, DDS Social History Tobacco [...] Description 04/15/2025 3:00 PM EDT Office Visit [facility] [address] [place] [address] Viola, Elsa [address] [place] [address] documented as of this encounter Visit Diagnoses Not on filedocumented in this encounter Care Teams Truck Service Technician Relationship Specialty Start Date End Date Montse Brar DO [address] [place] [address] PCP - General Family Medicine 10/09/18 documented as of this encounter
--- OUTSIDE RECORDS SUMMARY | 2025-01-28 13:36 | XMS_ITS | Encounter Summary ---
Author Organization [employer] Address [address] [facility] [address] [place] [address] Care Team Providers Care Pool Lifeguard Name Role Phone Montse Brar DO Primary Care Provider [phone] Reason for Visit * Reason Onset Date Comments Appointment Request 04/08/2024 Encounter Details Date Type Department Care Team ([facility] st Contact Info) Description 04/08/2024 Telephone [facility] [address] [place] [address] Montse Brar DO [address] [place], [place] [phone] Appointment Request Social History Tobacco Use Types [...] up with pcp. Please contact pt at [phone]. documented in this encounter Plan of Treatment Upcoming Encounters Date Type Department Care Team (Late st Contact Info) Description 04/15/2025 3:00 PM EDT Office Visit [facility] [address] [place] [address] Elsa Rod [address] [place] [address] documented as of this encounter Visit Diagnoses Not on filedocumented in this encounter Additional Health Concerns Assessment Noted Time PHQ-9 Depression Total Score: 0 06/08/20 23 11:06 AM EDT documented as of this encounter Care Teams Pool Lifeguard Relationship Specialty Start Date End Date Montse Brar DO [address] [place] [address] PCP - General Family Medicine 10/09/18 documented as of this encounter
--- OUTSIDE RECORDS SUMMARY | 2025-01-28 13:36 | XMS_ITS | Data Portability ---
Author Organization [place] - [facility], Allergy Address [address] [address] Care Team Providers Care Cementer Helper Name Role Phone MERON CARRIZALES Primary Care Provider [phone] Assessment Encounter Date Assessment Date Assessment LastModified [...] for speech therapy. Thank you. 2023 024 [id number] 2 [facility] & Hearing [facility], [address] [place] [address] [place], [address], 09:18:00 Procedures None recorded. Surgeries None recorded. [...] Time Chronic disease of tonsils AND/OR adenoids 90415624 Active 2022 Calculus , tonsil; Note: Date Diagnose d: 3 11:28 AM (J35.8) Not Available [facility] 4 03:30:10 Gastroesoph ageal reflux disease without esophagitis 156587723 Active 2022 Gastro-e sophagea l reflux disease without esophagi tis; Note: Date Diagnose d: 3 11:33 AM (K21.9) CLAYTON OLIVEIRA MD [address] [place] [address],[place] [address], [facility] [place], [address] , [facility] - [facility] 4 13:24:33 Vocal fatigue 6714825 Active 2023 CLAYTON OLIVEIRA MD [address] [place] [address],[place] [address], [facility] [place], [address] , [facility] - [facility] 4 13:28:08 Problem Notes None recorded. Procedures Surgical History Date Name Laterality Status Provider Name and Address Organization Details Recorded Time 07/23/2024 FOL_DP completed CLAYTON OLIVEIRA MD [address] [place] [address],[place] [address], [place], [address], [facility] 07/23/2024 13:27:56 Imaging Results None recorded. Procedure [...] Available Not Available Not Available Artificial Tears ([id number] omell-glyce rin) 1 %-0.2 %-0.2 % eye drops INSTILL 1 DROP INTO THE AFFECTED EYE(S) EVERY 4 TO 6 HOURS NEEDED 07/23 completed Not Available Not Available Not Available Vitals Date Recorded Body height Body mass index (BMI) Body weight Provider Name and Address Organization Details Last Updated DateTime 07/23/2024 172.72 cm 22 kg/m2 49507.89 g Zulma Mcghee MA [facility] 07/23/2024 13:09:26 Social History None recorded. Functional Status None recorded. Mental Status None recorded. Family History Nothing Reported. Medical History No medical history recorded. Past Encounters Encounter ID Performer Location Encounter Start Date Encounter Closed Date Diagnosis/Indication Diagnosis SNOMED-CT Code Diagnosis ICD10 Code Diagnosis Note CLAYTON OLIVEIRA MD [facility] [address] [address] 07/23/2024 12:57:03 07/23/2024 13:29:33 Gastroesophageal reflux disease without esophagitis 724726701 K21.9 Vocal fatigue 5480546 R4 9.8 Health Concerns Section Related Observation LastModified by Organization Detai ls LastModified Time None Recorded Concern Status LastModified by Organization Details LastModified Time None Recorded Advance Directives Directive None Recorded Payers Encounter Date Sequence Insurance Name Policy Number Policy Feliciano Covered Member ID Feliciano Member ID Guarantor Name 07/23/2024 1 [employer] OF [facility] [id number] Alexandra Herrera [id number] Gab Cabrera Notes Date Note Type Note Provider Name and Address Organization Details Recorded Time 07/23/2024 text/html vocal fatiguehig h vocal demand (office work calling patients) at work but may lose voicealso gets fatigue when singing ([employer]) only 1-2 songsnot worked with vocal dramatic coach in past+gastritis w esophagitis, custodial omeprazole. some breakthrough PV 04/24/23 [place] - tonsil stones, conservative management CLAYTON OLIVEIRA MD [address] [place] [address], [address], [facility] 07/23/2024 13:29:34
--- OUTSIDE RECORDS SUMMARY | 2025-01-28 13:36 | XMS_ITS | Encounter Summary ---
Author Organization [employer] Address [address] [place] [address] Care Team Providers Care Senior Adults Director Name Role Phone BisiMontse uribe Primary Care Provider + [phone] Encounter Details Date Type Department Care Team (Latest Contact Info) Description 01/28/2025 Travel Social History Tobacco Use Types Packs/Day [...] Description 04/15/2025 3:00 PM EDT Office Visit [facility] ADULT D[facility]AL [address] [place] [address] Leroy Rodaris [address] [place] [address] documented as of this encounter Visit Diagnoses Not on filedocumented in this encounter Additional Health Concerns Assessment Noted Time PHQ-9 Depression Total Score: 3 12/18/19 25 10:39 AM EDT documented as of this encounter Care Teams Senior Adults Director Relationship Specialty Start Date End Date Montse Brar DO [address] [place] [address] PCP - General Family Medicine 10/09/18 documented as of this encounter
--- OUTSIDE RECORDS SUMMARY | 2025-01-28 13:36 | XMS_ITS | Encounter Summary ---
Author Organization [employer] Address 75 [facility] 7t [place] [address] Care Team Providers Care Hotel Desk Clerk Name Role Phone Montse Brar DO Primary Care Provider Encounter Details Date Type Department Care Team (Latest Contact Info) Description 03/18/2021 Abstract [facility] Dental, Provider, DDS Social History Tobacco [...] Description 04/15/2025 3:00 PM EDT Office Visit [facility] ADULT [facility]ENT[facility] [address] [place] [address] Viola, Elsa [address] [place] [address] documented as of this encounter Visit Diagnoses Not on filedocumented in this encounter Care Teams Hotel Desk Clerk Relationship Specialty Start Date End Date Montse Brar DO [address] [place] [address] PCP - General Family Medicine 10/09/18 documented as of this encounter
--- OUTSIDE RECORDS SUMMARY | 2025-01-28 13:36 | XMS_ITS | Encounter Summary ---
Author Organization [employer] Address 75 [facility] 7t [place] [address] Care Team Providers Care Public Administration Professor Name Role Phone Montse Brar DO Primary Care Provider + [phone] Reason for Visit * Reason Comments Med Refill Encounter Details Date Type Department Care Team (Late st Contact Info) Description 08/17/2023 Refill [facility] ADULT DENTAL [address] [place] [address] Ben Castillo DDS [address] [place] [address] Social History Tobacco Use Types Packs/Day Years [...] Description 04/15/2025 3:00 PM EDT Office Visit [facility]ULT [facility] [address] [place] [address] Viola, Elsa [address] [place] [address] documented as of this encounter Visit Diagnoses Not on filedocumented in this encounter Additional Health Concerns Assessment Noted Time PHQ-9 Depression Total Score: 0 06/08/20 23 11:06 AM EDT documented as of this encounter Care Teams Public Administration Professor Relationship Specialty Start Date End Date Montse Brar DO [address] [place] [address] PCP - General Family Medicine 10/09/18 documented as of this encounter
--- OUTSIDE RECORDS SUMMARY | 2025-01-28 13:36 | XMS_ITS | Encounter Summary ---
Author Organization [employer] Address 75 [facility] 7t [place] [address] Care Team Providers Care Manager Organizational Name Role Phone Montse Brar DO Primary Care Provider [phone] Reason for Referral * Imaging (Routine) - Authorized Specialty Diagnoses / Procedures Referred By Contac t Referred To Contact Radiology Diagnoses Gynecomastia Procedures US Scrotum Montse Brar DO [address] [place] [address] Phone: tel: fax: [address] Phone: tel: fax: Referral ID Status Reason Start Date Expiration Date V isits Requested Visits Authorized [id number] Authorized 01/28/2025 01/28/2026 1 1 Encounter Details Date Type Department Care Team (Late st Contact Info) Description 01/28/2025 11:30 AM EDT Telemedicine [facility] MEDIC[facility] [address] [place], [place] [phone] Montse Brar DO [address] [place] [address] Malodorous urine (Primary Dx); Gynecomastia Social History Tobacco Use Types Packs/Day Years [...] Visit [facility] ADULT DENT[facility] [address] [place] [address] Viola Elsa [address] [place] [address] Scheduled Orders Name Type Priority Associated Diagnoses Orde r Schedule Urinalysis Complete Lab Routine Malodorous urine Expected: 01/28/2025, Expires: 01/28/2026 Culture, Urine, Routine Microbiology Routine Malodorous urine Expected: 01/28/2025 (Approximate), Expires: 01/28/2026 [facility] Lab Routine Gynecomastia Expected: 01/28/2025, Expires: 01/28/2026 Chlamydia/N. Gonorrhoeae RNA, TMA, Urogenitial Microbiology Routine Malodorous urine Ordered: 01/28/2025 US Scrotum Imaging Routine Gynecomastia Expected: 01/28/2025, Expires: 01/28/2026 documented as of this encounter Visit Diagnoses Diagnosis Malodorous urine- Primary Gynecomastia Hypertrophy of breast documented in this encounter Additional Health Concerns Assessment Noted Time PHQ-9 Depression Total Score: 3 12/18/19 25 10:39 AM EDT documented as of this encounter Care Teams Manager Organizational Relationship Specialty Start Date End Date Montse Brar DO [address] [place] [address] PCP - General Family Medicine 10/09/18 documented as of this encounter
--- OUTSIDE RECORDS SUMMARY | 2025-01-28 13:36 | XMS_ITS | Encounter Summary ---
Author Organization [employer] Address 75 [facility] 7 [place] [address] Care Team Providers Care Software Quality Manager Name Role Phone Montse Brar DO Primary Care Provider [phone] Reason for Visit * Reason Onset Date Comments Chart prep 01/26/2025 Encounter Details Date Type Department Care Team ([facility] st Contact Info) Description 01/26/2025 Telephone [facility] [address] [place] [address] Montse Brar DO [address] [place], [place] [phone] Chart prep Social History Tobacco Use Types Packs/Day Years [...] encounter Miscellaneous Notes * Telephone Encounter - Yessy Muniz MA - 01/26/2025 9:33 AM EDT Chart Prep Labs: done Images: done Referrals: appointment pending Vaccines due: no updates Screenings: not applicable Overdue care gaps: Disability screen documented in this encounter Plan of Treatment Upcoming Encounters Date Type Department Care Team (Late st Contact Info) Description 04/15/2025 3:00 PM EDT Office Visit [facility] ADULT D[facility] [address] [place] [address] Viola, Elsa [address] [place] [address] documented as of this encounter Visit Diagnoses Not on filedocumented in this encounter Additional Health Concerns Assessment Noted Time PHQ-9 Depression Total Score: 3 12/18/19 25 10:39 AM EDT documented as of this encounter Care Teams Software Quality Manager Relationship Specialty Start Date End Date Montse Brar DO [address] [place] [address] PCP - General Family Medicine 10/09/18 documented as of this encounter
[2025-01-28 13:45] LABS: Appearance Urine Clear; Color Urine Yellow; Glucose Urine UA Negative (Negative); Leukocyte Esterase Urine Negative (Negative); Nitrite Urine Negative (Negative); PH 8.5 (5.0-9.0); Specific Gravity - Urine <= 1.005 (1.005-1.025); Urine Blood Negative (Negative); Urine Ketones Negative (Negative); Urine Protein Negative (Neg-Trace)
[2025-01-28 13:51] LABS: Bacteria Urine None Seen (None Seen); Hyaline Casts Urine 0-2 /LPF (0-2); RBC Urine 0-2 /HPF (0-2); Squamous Epithelial Cell Urine 0-2 /HPF (0-2); WBC Urine 0-5 /HPF (0-5)
[2025-02-13 00:28] LABS: Estradiol Ultra Sensitive 14 pg/mL (< OR = 29)
== END 2025-01-28 12:10 | disposition home or self-care (01) ==
LOC: HO.10HDL 12:09
PROVIDERS: Visit Provider Family Medicine
DX: R82.90 Unspecified abnormal findings in urine (principal); N62 Hypertrophy of breast
CPT/HCPCS: 36415; 81001; 82670; 87086

== ENCOUNTER → 2025-02-12 15:49 | Outpatient (REF) | payer OTHER, SELFPAY ==
--- OUTSIDE RECORDS SUMMARY | 2025-02-12 16:07 | XMS_ITS | Encounter Summary ---
Author Organization [employer] Address 75 [facility] 7 [place] [address] Care Team Providers Care Diet Assistant Name Role Phone Montse Brar DO Primary Care Provider + [phone] Reason for Visit * Reason Onset Date Comments Appointment Request 04/08/2024 Encounter Details Date Type Department Care Team ([facility] st Contact Info) Description 04/08/2024 Telephone [facility] MEDICINE [address] [place] [address] Montse Brar DO [address] [place] [address] Appointment Request Social History Tobacco Use Types [...] up with pcp. Please contact pt at [phone]. documented in this encounter Plan of Treatment Upcoming Encounters Date Type Department Care Team (Late st Contact Info) Description 04/15/2025 3:00 PM EDT Office Visit [facility] ADULT DENTAL [address] [place] [address] Elsa Rod [address] [place] [address] documented as of this encounter Visit Diagnoses Not on filedocumented in this encounter Additional Health Concerns Assessment Noted Time PHQ-9 Depression Total Score: 0 06/08/20 23 11:06 AM EDT documented as of this encounter Care Teams Diet Assistant Relationship Specialty Start Date End Date Montse Brar DO [address] [place] [address] PCP - General Family Medicine 10/09/18 documented as of this encounter
--- OUTSIDE RECORDS SUMMARY | 2025-02-12 16:07 | XMS_ITS | Encounter Summary ---
Author Organization [employer] Address [address] [place] [address] 7 [place] [address] Care Team Providers Care Target Aircraft Controller Name Role Phone Montse Brar DO Primary Care Provider [phone] Encounter Details Date Type Department Care Team (Latest Contact Info) Description 03/18/[address] [facility] Dental, Provider, DDS Social History [...] Description 04/15/2025 3:00 PM EDT Office Visit [facility] ADULT DENTAL [address] [place] [address] Viola, Elsa [address] [place] [address] documented as of this encounter Visit Diagnoses Not on filedocumented in this encounter Care Teams Target Aircraft Controller Relationship Specialty Start Date End Date Montse Brar DO [address] [place] [address] PCP - General Family Medicine 10/09/18 documented as of this encounter
--- OUTSIDE RECORDS SUMMARY | 2025-02-12 16:07 | XMS_ITS | Encounter Summary ---
Author Organization [employer] Address [address] [place] [address] 7 [place] [address] Care Team Providers Care Spot Remover Name Role Phone Montse Brar DO Primary Care Provider [phone] Encounter Details Date Type Department Care Team (Latest Contact Info) Description 11/06/2018 Abstract [facility] CON[facility] Dental, Provider, DDS Social History [...] Description 04/15/2025 3:00 PM EDT Office Visit [facility] ADULT DENTAL [address] [place] [address] Viola, Elsa [address] [place] [address] documented as of this encounter Visit Diagnoses Not on filedocumented in this encounter Care Teams Spot Remover Relationship Specialty Start Date End Date Montse Brar DO [address] [place] [address] PCP - General Family Medicine 10/09/18 documented as of this encounter
--- OUTSIDE RECORDS SUMMARY | 2025-02-12 16:07 | XMS_ITS | Encounter Summary ---
Author Organization [employer] Address 75 [facility] 7 [place] [address] Care Team Providers Care Unit Receptionist Name Role Phone Zonia Montse JEREZ Primary Care Provider + [phone] Reason for Visit * Reason Comments Med Refill Encounter Details Date Type Department Care Team (Late st Contact Info) Description 08/17/2023 Refill [facility] ADULT DENTAL [address] [place] [address] Ben Castillo DDS [address] [place] [address] Social History Tobacco Use Types Packs/Day Years [...] Description 04/15/2025 3:00 PM EDT Office Visit [facility] ADULT DENTAL [address] [place] [address] Viola, Elsa [address] [place] [address] documented as of this encounter Visit Diagnoses Not on filedocumented in this encounter Additional Health Concerns Assessment Noted Time PHQ-9 Depression Total Score: 0 06/08/20 23 11:06 AM EDT documented as of this encounter Care Teams Unit Receptionist Relationship Specialty Start Date End Date Montse Brar DO [address] [place] [address] PCP - General Family Medicine 10/09/18 documented as of this encounter
--- OUTSIDE RECORDS SUMMARY | 2025-02-12 16:07 | XMS_ITS | Data Portability ---
Author Organization [place] - [facility], Allergy Address [address] [address] Care Team Providers Care Plaster Block Layer Name Role Phone DAYNAFANNY MERON Primary Care Provider [phone] Assessment Encounter Date Assessment Date Assessment LastModified [...] for speech therapy. Thank you. 2023 024 [id number] 2 [facility] Speech & Hearing [facility], [address] [place] [address] [place], [address], 09:18:00 Procedures None recorded. Surgeries None recorded. [...] Time Chronic disease of tonsils AND/OR adenoids 35313852 Active 2022 Calculus , tonsil; Note: Date Diagnose d: 3 11:28 AM (J35.8) Not Available [facility] 4 03:30:10 Gastroesoph ageal reflux disease without esophagitis 938056302 Active 2022 Gastro-e sophagea l reflux disease without esophagi tis; Note: Date Diagnose d: 3 11:33 AM (K21.9) CLAYTON OLIVEIRA MD 100 [facility],[place] [address], [place], [address] , [facility] - [facility] 4 13:24:33 Vocal fatigue 0229738 Active 2023 CLAYTON OLIVEIRA MD [address] [place] [address],[place] [address], [place], [address] , [facility] 4 13:28:08 Problem Notes None recorded. Procedures Surgical History Date Name Laterality Status Provider Name and Address Organization Details Recorded Time 07/23/2024 FOL_DP completed CLAYTON OLIVEIRA MD [address] [place] [address],[place] [address], [place], [address], [facility] - [facility] 07/23/2024 13:27:56 Imaging Results None recorded. Procedure [...] Available Not Available Not Available Artificial Tears ([id number] omell-glyce rin) 1 %-0.2 %-0.2 % eye drops INSTILL 1 DROP INTO THE AFFECTED EYE(S) EVERY 4 TO 6 HOURS NEEDED 07/23 completed Not Available Not Available Not Available Vitals Date Recorded Body height Body mass index (BMI) Body weight Provider Name and Address Organization Details Last Updated DateTime 07/23/2024 172.72 cm 22 kg/m2 06935.89 g Zulma Mcgehe [place] - [facility] 07/23/2024 13:09:26 Social History None recorded. Functional Status None recorded. Mental Status None recorded. Family History Nothing Reported. Medical History No medical history recorded. Past Encounters Encounter ID Performer Location Encounter Start Date Encounter Closed Date Diagnosis/Indication Diagnosis SNOMED-CT Code Diagnosis ICD10 Code Diagnosis Note CLAYTON OLIVEIRA MD [facility] [address] [address] 07/23/2024 12:57:03 07/23/2024 13:29:33 Gastroesophageal reflux disease without esophagitis 936343112 K21.9 Vocal fatigue 4670909 R4 9.8 Health Concerns Section Related Observation LastModified by Organization Detai ls LastModified Time None Recorded Concern Status LastModified by Organization Details LastModified Time None Recorded Advance Directives Directive None Recorded Payers Insurance Date Sequence Insurance Name Policy Number Policy Feliciano Covered Member ID Feliciano Member ID Guarantor Name 07/23/2024 1 BLUE BENEFIT ADMINISTRATORS OF [facility] [id number] Alexandra Herrera [id number] Gab Cabrera Notes Date Note Type Note Provider Name and Address Organization Details Recorded Time 07/23/2024 text/html vocal fatiguehig h vocal demand (office work calling patients) at work but may lose voicealso gets fatigue when singing ([employer]) only 1-2 songsnot worked with vocal job coach in past+gastritis w esophagitis, terminal worker omeprazole. some breakthrough PV 04/24/23 [place] - tonsil stones, conservative management CLAYTON OLIVEIRA MD [address] [place] [address], [phone], [facility] - [facility] 07/23/2024 13:29:34
--- OUTSIDE RECORDS SUMMARY | 2025-02-12 16:07 | XMS_ITS | Encounter Summary ---
Author Organization [employer] Address [address] [place] [address] 7 [place] [address] Care Team Providers Care Outreach And Education Social Worker Name Role Phone Montse Brar DO Primary Care Provider [phone] Encounter Details Date Type Department Care Team (Latest Contact Info) Description 03/22/2022 Abstract [facility] CONVERSION[facility] Dental, Provider, DDS Social History [...] Description 04/15/2025 3:00 PM EDT Office Visit [facility] ADULT DENTAL [address] [place] [address] Viola, Elsa [address] [place] [address] documented as of this encounter Visit Diagnoses Not on filedocumented in this encounter Care Teams Outreach And Education Social Worker Relationship Specialty Start Date End Date Montse Brar DO [address] [place] [address] PCP - General Family Medicine 10/09/18 documented as of this encounter
--- OUTSIDE RECORDS SUMMARY | 2025-02-12 16:07 | XMS_ITS | Clinical Summary ---
Author Organization [employer] Address [address] [place] [address] 7 [place] [address] Care Team Providers Care Student Ministries Director Name Role Phone Zonia Montse Primary Care Provider [phone] Allergies No known active allergies Medications Artificial Tears 0.2-0.2-1 % solution INSTILL 1 DROP INTO THE AFFECTED EYE(S) EVERY 4 TO 6 HOURS NEEDED 15 mL 1 3 Active omeprazole (PriLOSEC) [address] capsule Take 1 capsule (20 mg) by mouth before breakfast and before evening meal. Do not crush or chew. 60 capsule 11 4 Active cholecalciferol (Vitamin D-3) 50 MCG (1999) capsuleIndicati ons:Vitamin D deficiency Take 1 capsule [...] Team Description 01/28/2025 11:30 AM EDT Telemedicine [facility] [address] [place] [phone] Montse Brar DO Malodorous urine (Primary Dx); Gynecomastia 01/28/2025 Travel 01/27/2025 Travel 01/26/2025 Telephone [facility] [address] [place] [address] Montse Brar DO Chart prep 12/19/[address] [phone] oMntse Brar DO Results 12/17/2024 9:30 AM EDT Office Visit [facility] [address] [place] [address] Montse Brar DO Routine history and physical examination of adult (Primary Dx); Depression with anxiety; Chronic gastroesophageal reflux disease; Seborrheic dermatitis; Gynecomastia; Abnormal echocardiogram; Fatigue, unspecified type; Sleep-disordered breathing; Voice fatigue; Throat clearing; BMI 22.0-22.9, adult; Tendinitis of knee; Tendinitis of right hip; Influenza-like symptoms 12/17/2024 Travel 12/16/2024 Travel 12/09/2024 Patient Outreach [facility] [address] [place] [phone] Gianna Nielsen Pre-visit Planning (SDOH screening negative and tobacco screening negative) 12/05/2024 8:00 AM EST Office Visit [facility] [address] [place] [phone] Bruna Tsang DDS Encounter for dental examination (Primary Dx); Dental plaque 11/28/2024 Travel 11/27/2024 Telephone [facility] [address] [place] [phone] Montse Brar DO Appointment Request from Last 3 Months Immunizations Immunization Administration Dates Next Due DTaP 03/01/2004, 0,2000,05/03 [...] Description 04/15/2025 3:00 PM EDT Office Visit [facility] [address] [place] [address] Viola, Elsa [address] [place] [address] Health Maintenance Due Date Last Done Comments [...] 2000, 2000, 2000 HIB Vaccines Completed 11/21/2001, 0 03/2000, 2000, Additional history exists IPV Vaccines Completed 03/01/2004, 0 03/2000, 2000, Additional history exists Meningococcal Vaccine Completed 10/09/2018, 011 HPV Vaccines Completed 03/03/2022, 08/31, 10/09/2018 HIV Screening Completed 12/18/2024, 06/01, 11/14/2021, Additional history exists Hepatitis C Screening Completed 12/18/2024 , 06/14/2023, 11/14/2021, Additional history exists Hepatitis A Vaccines Aged Out No long er eligible based on patient's age to complete this topic Meningococcal B Vaccine Aged Out No l onger eligible based on patient's age to complete [...] Procedure Name Priority Date/Time Associated Diagnosis Comments URINALYSIS, COMPLETE Routine 01/28/2025 12:15 PM EDT Malodorous urine CULTURE, URINE, ROUTINE Routine 01/28/2025 12:15 PM EDT Malodorous urine HEPATITIS B CORE AB TOTAL Routine 12/18/2024 [...] Recently Relevant to Health Maintenance Results * Urinalysis Complete (01/28/2025 12:15 PM EDT) Color Urine Yellow [facility] Appearance Urine Clear [facility] PH 8.5 5.0 - 9.0 [facility] Glucose Urine UA Negative Negative mg/dL [facility] Urine Blood Negative Negative [facility] Specific [place] - Urine <=1.005 1.005 - 1.025 [facility] Urine Protein Negative Neg-Trace mg/dL [facility] Urine Ketones Negative Negative mg/dL [facility] Nitrite Urine Negative Negative [facility] Leukocyte Esterase Urine Negative Negative [facility] RBC Urine 0-2 0 - 2 /HPF [facility] Urine WBC 0-5 0 - 5 /HPF [facility] Urine Squamous Epithelial Cell 0-2 0 - 2 /HPF [facility] Urine Bacteria None Seen None Seen [facility] Hyaline Casts, Urine 0-2 0 - 2 /LPF [facility] Urine (Urine, Random) 01/28/2025 12:15 PM EDT 01/28/2025 1:02 PM EDT us Montse Brar DO LAB URINE ORDERABLES Final R esult Performing Organization Address City/[facility] Co de Phone Number [facility] [address] [place] [phone] * Culture, Urine, Routine (01/28/2025 12:15 PM EDT) Urine Urine specimen obtained by clean catch procedure / Unknown 01/28/2025 12:15 PM EDT 01/28/2025 1:02 PM EDT Comment:UACC Narrative [facility] - 01/29/2025 12:10 PM EDT Urine Culture No growth. Specimen Source: Urine clean catch Montse Brar DO LAB MICROBIOLOGY - GENERAL O RDERABLES Final Result Performing Organization Address [facility] de Phone Number [facility] [address] [place] [phone] * (ABNORMAL) Vitamin D, 25-Hydroxy, Total, Immunoassay (12/18/2024 8:15 AM EDT) Vitamin D 25-OH Total 15.2(L) >30 ng/mL [facility] Comment: Health Based Reference Values*< 20 ??ng/mL ??Gyxmfvyvi09-23 ng/mL ??Insufficient> 30 ??ng/mL ??Sufficient*Stacy ALVARADO. N [...] ORDERABLES Final R esult Performing Organization Address [facility] Co de Phone Number [facility] [address] [place] [phone] * Hepatitis C Antibody with Reflex to HCV, RNA, Quantitative, Real-Time PCR (12/18/2024 8:15 AM EDT) Hepatitis C Antibody Nonreactive Nonreactive [facility] Comment:Antibodies to HCV no t detected; does not exclude early acuteHCV infection. Blood Venous blood specimen / Unknown 12/18/2024 8:15 AM EDT 12/18/2024 10:20 AM EDT us Montse Brar DO LAB BLOOD ORDERABLES Final R esult Performing Organization Address [facility] Co de Phone Number [facility] [address] [place] [phone] * Hepatitis A Antibody, Total (12/18/2024 8:15 AM EDT) Hepatitis A Antibody IgG Nonreactive Nonreactive [facility] Blood Venous blood specimen / Unknown 12/18/2024 8:15 AM EDT 12/18/2024 10:20 AM EDT us Montse Brar DO LAB BLOOD ORDERABLES Final R esult [facility] [address] [place] [address] [phone] * Chlamydia/N. Gonorrhoeae RNA, TMA, Urogenitial (12/18/2024 8:15 AM EDT) CT PCR NOT DETECTED Not Detect. [facility] Comment:A not detected test result does [...] psychologicalconsequences. NG PCR NOT DETECTED Not Detect. [facility] Comment:A not detected test result does [...] AM EDT 12/18/2024 10:12 AM EDT Narrative [facility] - 12/18/2024 3:01 PM EDT Urine Montse Brar DO LAB MICROBIOLOGY - GENERAL O RDERABLES Final Result Performing Organization Address [facility] Co de Phone Number [facility] [address] [place] [phone] * Hepatitis B surface antigen, EIA (12/18/2024 8:15 AM EDT) Hepatitis B Surface Ag Negative Negative [facility] Blood Venous blood specimen / Unknown 12/18/2024 8:15 AM EDT 12/18/2024 10:18 AM EDT Montse Zonia JEREZ LAB BLOOD ORDERABLES Final R esult Performing Organization Address [facility] Co de Phone Number [facility] [address] [place] [phone] * Hepatitis B Core Antibody, Total (12/18/2024 8:15 AM EDT) Pathologist [facility] Hepatitis B Core Antibody Nonreactive Nonreactive [facility] Blood Venous blood specimen / Unknown 12/18/2024 8:15 AM EDT 12/18/2024 10:20 AM EDT Montse Zonia JEREZ LAB BLOOD ORDERABLES Final R esult Performing Organization Address [facility] de Phone Number [facility] [address] [place] [phone] * (ABNORMAL) Estradiol (12/18/2024 8:15 AM EDT) Pathologist [facility] Estradiol Ultra Sensitive 55(A) < OR = 29 pg/mL [facility] Comment:This test was develo ped and its analytical performancecharacteristics have been determined by [employer].It has not been cleared or approved by the FDA. This assayhas been validated pursuant to the CLIA regulations and isused for clinical purposes.THIS TEST WAS PERFORMED AT:[employer] [id number] [place] [id number] LERMA MD,PHD,FRANCHESKA Blood Venous blood specimen / Unknown 12/18/2024 8:15 AM EDT 12/18/2024 10:18 AM EDT Montse Brar LAB BLOOD ORDERABLES Final R esult Performing Organization Address [facility] Co de Phone Number [facility] [address] [place] [phone] * RPR (Monitor) with Reflex to??Titer (12/18/2024 8:15 AM EDT) RPR (Monitor) w/Refl Titer NON-REACTI VE NON-REACT RICK [facility] Comment:THIS TEST WAS PERFOR MED AT:[facility] [address] [id number] SALOMON MD Rapid Plasma Reagin Ab Titer TNP [facility] Blood Venous blood specimen / Unknown 12/18/2024 8:15 AM EDT 12/18/2024 10:20 AM EDT Montse Zonia LAB BLOOD ORDERABLES Final R esult Performing Organization Address [facility] Co de Phone Number [facility] [address] [place] [phone] * HIV-1/2 Antigen and Antibodies, Fourth Generation, with Reflexes (12/18/2024 8:15 AM EDT) HIV AB/AG Nonreactive Nonreactive [facility] Comment:HIV-1 p24 Ag and/or HIV-1/HIV-2 Ab not detected.A test result that is nonreactive does not exclude thepossibility of exposure to or infection with HIV-1 and/orHIV-2. Nonreactive results in this assay for individualswith prior exposure to HIV-1 and/or HIV-2 may be due toantigen and antibody levels that are below the limit ofdetection of this assay.The [employer] HIV Ag/Ab Combo assay result andsupplemental assay results should be interpreted inconjunction with the patient's clinical presentation,history and other laboratory results. If the results areinconsistent with clinical evidence, additional testing issuggested to confirm the result. Blood Venous blood specimen / Unknown 12/18/2024 8:15 AM EDT 12/18/2024 10:18 AM EDT Montse Brar LAB BLOOD ORDERABLES Final R esult Performing Organization Address City/[facility]/ZIP Co de Phone Number [facility] [address] [place] [phone] * Hepatitis B Surface Antibody, Qualitative (12/18/2024 8:15 AM EDT) Pathologist [facility] ~Hepatitis B Surface Antibody NONREACTIVE Nonreactive [facility] Comment:Nonreactive: < 8.00 mIU/mL Blood Venous blood specimen / Unknown 12/18/2024 8:15 AM EDT 12/18/2024 10:20 AM EDT Montse Brar DO LAB BLOOD ORDERABLES Final R esult Performing Organization Address City/[facility]/ZIP Co de Phone Number [facility] [address] [place] [phone] * (ABNORMAL) CBC (12/18/2024 8:15 AM EDT) Pathologist [facility] White Blood Count 7.2 4.8 - 10.8 X10*3/uL [facility] Red Blood Count 5.40 4.60 - 5.80 X10*6/uL [facility] Hemoglobin 14.7 14.0 - 18.0 g/dl [facility] Hematocrit 44.0 42.0 - 52.0 % [facility] Mean Corpuscular Volume 81.5 80.0 - 98.0 fL [facility] Mean Corpuscular Hemoglobin 27.2 27.0 - 33.0 pg [facility] Mean Corpuscular HGB Conc 33.4 31.0 - 36.0 g/dl [facility] Red Cell Distribution Width 13.7 11.0 - 16.0 % [facility] Platelet Count 333 160 - 400 X10*3/uL [facility] Mean Platelet Volume 9.1(L) 9.4 - 12.4 fL [facility] NRBC Pct Auto 0.0 0.0 - 0.2 /100WBC [facility] NRBC Abs Auto 0.000 0.0 - 0.012 X10*3/uL [facility] Blood Venous blood specimen / Unknown 12/18/2024 8:15 AM EDT 12/18/2024 10:20 AM EDT [facility] LAB BLOOD ORDERABLES Final R esult [facility] [address] [place] [phone] * hCG, Total, Quantitative (12/18/2024 8:15 AM EDT) HCG Quantitative <2 mIU/mL [facility] Blood Venous blood specimen / Unknown 12/18/2024 8:15 AM EDT 12/18/2024 10:20 AM EDT [employer] LAB BLOOD ORDERABLES Final R esult [facility] [address] [place] [phone] * TSH (12/18/2024 8:15 AM EDT) Thyroid Stimulating Hormone 1.66 0.32 - 4.0 uIU/mL [facility] Comment:TSH 3rd Generation ( [facility]) Blood Venous blood specimen / Unknown 12/18/2024 8:15 AM EDT 12/18/2024 10:20 AM EDT [facility] BLOOD ORDERABLES Final R esult Performing Organization Address City/[facility]/ZIP Co de Phone Number [facility] [address] [place] [phone] * T4, Free (12/18/2024 8:15 AM EDT) Free T4 (Free Thyroxine) 1.14 0.71 - 1.85 ng/dL [facility] Blood Venous blood specimen / Unknown 12/18/2024 8:15 AM EDT 12/18/2024 10:20 AM EDT [facility] LAB BLOOD ORDERABLES Final R esult Performing Organization Address [facility] Co de Phone Number [facility] [address] [place] [phone] * Testosterone, Total, males (Adult), IA (12/18/2024 8:15 AM EDT) Testosterone, Total 557 250 - 1100 ng/dL [facility] Comment:For additional infor mation, please refer tohttp://education.[employer]pw/faq/[email or web address](This link is being provided for informational/educational purposes only.)This test was developed and its analytical performancecharacteristics have been determined by [employer] [place], [place]. It hasnot been cleared or approved by the U.S. Food and DrugAdministration. This assay has been validated pursuantto the CLIA regulations and is used for clinicalpurposes.THIS TEST WAS PERFORMED AT:[id number] [place] [id number] YADAV MD,PHD Blood Venous blood specimen / Unknown 12/18/2024 8:15 AM EDT 12/18/2024 10:18 AM EDT us Montse Zonia DO LAB BLOOD ORDERABLES Final R esult Performing Organization Address City/[facility] Co de Phone Number [facility] [address] [place] [phone] * Hemoglobin A1c (12/18/2024 8:15 AM EDT) Hemoglobin A1c 5.4 <6.0 % [facility] Comment:Hemoglobin A1C Refer ence Range Adults: 4.8 - 6.0 % Non diabetic: < 6.0 % Goal: < 7.0 %Additional Action Suggested: > 8.0 %Note: Hemoglobin A1c results are invalid for patients with abnormal amounts of HbF. Blood transfusions may impact the HbA1c concentration in the patient sample. Estimated Average Glucose 108 mg/dL [facility] Comment:eAG = Estimated ave rage glucose which is %A1C expressed asaverage glucose, using the formula of the [id number] Glucose study (ADAG), Diabetes Care, Vol.31,#8,2007 Blood Venous blood specimen / Unknown 12/18/2024 8:15 AM EDT 12/18/2024 10:20 AM EDT us Montse Brar DO LAB BLOOD ORDERABLES Final R esult Performing Organization Address City/[facility]/ZIP Co de Phone Number [facility] [address] [place] [phone] * LH (12/18/2024 8:15 AM EDT) Lutenizing Hormone 3.4 1.5 - 9.3 mIU/mL [facility] Comment:THIS TEST WAS PERFOR MED AT:[employer] [place] [id number] SALOMON MD Blood Venous blood specimen / Unknown 12/18/2024 8:15 AM EDT 12/18/2024 10:18 AM EDT Montse Zonia DO LAB BLOOD ORDERABLES Final R esult Performing Organization Address City/[facility]/ZIP Co de Phone Number [facility] [address] [place] [phone] * Hepatic Function Panel (12/18/2024 8:15 AM EDT) Bilirubin, Total 0.7 0.0 - 1.0 mg/dL [facility] Bilirubin, Direct 0.2 0.0 - 0.5 mg/dL [facility] Aspartate Amino Transferase 21 5 - 37 U/L [facility] Alanine Aminotransferase 25 0 - 40 U/L [facility] Total Protein 7.7 6.5 - 8.0 g/dL [facility] Albumin Level 4.1 3.5 - 5.0 g/dL [facility] Alkaline Phosphatase 59 39 - 117 U/L [facility] Blood Venous blood specimen / Unknown 12/18/2024 8:15 AM EDT 12/18/2024 10:20 AM EDT Montse Brar DO LAB BLOOD ORDERABLES Final R esult Performing Organization Address [facility] Co de Phone Number [facility] [address] [place] [phone] * (ABNORMAL) Lipid Panel, Standard (12/18/2024 8:15 AM EDT) Triglycerides 57 <150 mg/dL [facility] Comment:Desirable Triglyceri de: less than 150 mg/dLBorderline High Triglyceride 150-199 mg/dLHigh Triglyceride: 200-499 mg/dLVery High Triglyceride: greater than or equal to 5OO mg/dL Cholesterol 144 <200 mg/dL [facility] Comment:Desirable Cholestero l: less than 200 mg/dLBorderline High Cholesterol: 200-239 mg/dLHigh Cholesterol: greater than 239 mg/dL LDL Cholesterol Calculated 93 <100 mg/dL [facility] Comment:Desirable LDL: less than 100 mg/dLNear Optimal/Above Optimal LDL: 110- 129 mg/dLBorderline High LDL: 130-159 mg/dLHigh LDL: 160-189 mg/dLVery High LDL: greater than or equal to 190 mg/dL HDL Cholesterol 40(L) >40 mg/dL [facility] Comment:Desirable HDL: great er than 40 mg/dL Note: This HDL assay may give artificially low results in patients with liver disease. Blood Venous blood specimen / Unknown 12/18/2024 8:15 AM EDT 12/18/2024 10:20 AM EDT us Montse Brar DO LAB BLOOD ORDERABLES Final R esult [facility] [address] [place], [place] [phone] * (ABNORMAL) Basic Metabolic Panel (12/18/2024 8:15 AM EDT) Sodium 140 135 - 145 mmol/L [facility] Potassium 3.8 3.3 - 5.1 mmol/L [facility] Chloride 107 96 - 108 mmol/L [facility] Carbon Dioxide 27 22 - 29 mmol/L [facility] Anion Gap 10(L) 12 - 20 [facility] Urea Nitrogen (BUN) 9 9 - 16 mg/dL [facility] Creatinine, Serum 0.88 0.5 - 1.4 mg/dL [facility] Estimated Glomerular Filt Rate >60 [facility] Comment:Chronic Kidney Disea se: Estimated GFR < 60 mL/min/1.54v0Ktnbze Kidney Disease: Estimated GFR < 15 mL/min/1.73m2 Glucose 97 60 - 115 mg/dL [facility] Calcium 9.0 8.4 - 10.2 mg/dL [facility] Blood Venous blood specimen / Unknown 12/18/2024 8:15 AM EDT 12/18/2024 10:20 AM EDT us Montse Brar DO LAB BLOOD ORDERABLES Final R esult [facility] [address] [place] [phone] from Last 3 Months Insurance [employer] [facility] [facility] - [place] PARTIAL (MEDICAID) Care Teams Student Ministries Director Relationship Specialty Start Date End Date Montse Brar DO [address] [place] [address] PCP - General Family Medicine 10/09/18
== END ==
LOC: HO.SL 15:49
PROVIDERS: PCP Family Medicine; Visit Provider Family Medicine
DX: G47.30 Sleep apnea, unspecified (principal); R06.89 Other abnormalities of breathing
CPT/HCPCS: 95806

== ENCOUNTER → 2025-02-12 19:00 | Outpatient (BNV) | payer OTHER, SELFPAY | PROVIDERS: PCP Family Medicine; Visit Provider Internal Medicine | DX: R06.83 Snoring (principal) | CPT/HCPCS: 95806 ==

== ENCOUNTER 2025-02-26 14:47 | Outpatient (REF) | payer OTHER, SELFPAY ==
--- NOTE | ~2025-02-26 | US_ITS ---
EXAMINATION: US SCROTUM HISTORY: h/o gynecomastia and elevated estradiol. COMPARISON: There are no prior studies available for comparison. FINDINGS: Real-time grayscale ultrasound imaging of the scrotum was performed. RIGHT TESTICLE: The right testis measures 4.6 x 2.4 x 2.8 cm and demonstrates normal homogeneous echotexture. No masses are seen. The right testis demonstrates normal color Doppler flow. RIGHT EPIDIDYMIS: Normal in size, shape, and vascularity. LEFT TESTICLE: The left testis measures 4.6 x 2.3 x 2.7 cm and demonstrates normal homogeneous echotexture. No masses are seen. The left testis demonstrates normal color Doppler flow. LEFT EPIDIDYMIS: Normal in size, shape, and vascularity. VARICOCELE: None. HYDROCELE: No significant hydrocele is seen. OTHER COMMENTS: None. US/US scrotum IMPRESSION: Unremarkable scrotal ultrasound. Electronically signed by: Joey Rucker MD 02/26/2025 03:19 PM EDT
--- OUTSIDE RECORDS SUMMARY | 2025-02-26 14:51 | XMS_ITS | Data Portability ---
Author Organization [place] - [facility], Allergy Address [address] [address] Care Team Providers Care Pasta Maker Name Role Phone DAYNAFANNY MERON Primary Care Provider Assessment Encounter Date Assessment [...] for speech therapy. Thank you. 2023 024 [email or web address] 2 [facility], [address] [place] [address] [place], [address], 09:18:00 Procedures None recorded. Surgeries None recorded. [...] Time Chronic disease of tonsils AND/OR adenoids 51327152 Active 2022 Calculus , tonsil; Note: Date Diagnose d: 3 11:28 AM (J35.8) Not Available [facility] 4 03:30:10 Gastroesoph ageal reflux disease without esophagitis 326186181 Active 2022 Gastro-e sophagea l reflux disease without esophagi tis; Note: Date Diagnose d: 3 11:33 AM (K21.9) CLAYTON OLIVEIRA MD 100 [facility],[place] [address], [place], [address] , [facility] - [facility] 4 13:24:33 Vocal fatigue 7959620 Active 2023 CLAYTON OLIVEIRA MD [address] [place] [address],[place] [address], [place], [phone] , [facility] 4 13:28:08 Problem Notes None recorded. Procedures Surgical History Date Name Laterality Status Provider Name and Address Organization Details Recorded Time 07/23/2024 FOL_DP completed CLAYTON OLIVEIRA MD [address] [place] [address],[place] [address], [place], [address], [facility] - [facility] 07/23/2024 13:27:56 Imaging Results None recorded. [...] Available Not Available Not Available Artificial Tears (cp272-lrep omell-glyce rin) 1 %-0.2 %-0.2 % eye drops INSTILL 1 DROP INTO THE AFFECTED EYE(S) EVERY 4 TO 6 HOURS NEEDED 07/23 completed Not Available Not Available Not Available Vitals Date Recorded Body height Body mass index (BMI) Body weight Provider Name and Address Organization Details Last Updated DateTime 07/23/2024 172.72 cm 22 kg/m2 19107.89 g Zulma Mcghee [place] - [facility] 07/23/2024 13:09:26 Social History None recorded. Functional Status None recorded. Mental Status None recorded. Family History Nothing Reported. Medical History No medical history recorded. Past Encounters Encounter ID Performer Location Encounter Start Date Encounter Closed Date Diagnosis/Indication Diagnosis SNOMED-CT Code Diagnosis ICD10 Code Diagnosis Note CLAYTON OLIVEIRA MD [facility] [address] [address] 07/23/2024 12:57:03 07/23/2024 13:29:33 Gastroesophageal reflux disease without esophagitis 855914821 K21.9 Vocal fatigue 2882561 R4 9.8 Health Concerns Section Related Observation LastModified by Organization Detai ls LastModified Time None Recorded Concern Status LastModified by Organization Details LastModified Time None Recorded Advance Directives Directive None Recorded Payers Insurance Date Sequence Insurance Name Policy Number Policy Feliciano Covered Member ID Feliciano Member ID Guarantor Name 07/23/2024 1 [employer] [facility] [id number] Alexandra Herrera [id number] Notes Date Note Type Note Provider Name and Address Organization Details Recorded Time 07/23/2024 text/html vocal fatiguehig h vocal demand (office work calling patients) at work but may lose voicealso gets fatigue when singing ([place]) only 1-2 songsnot worked with vocal wrestling coach in past+gastritis w esophagitis, termite control representative omeprazole. some breakthrough PV 04/24/23 [place] - tonsil stones, conservative management CLAYTON OLIVEIRA MD [address] [place] [address], [phone], [facility] - [facility] 07/23/2024 13:29:34
== END 2025-02-26 14:48 | disposition home or self-care (01) ==
LOC: HO.US 14:47
PROVIDERS: PCP Family Medicine; Visit Provider Family Medicine
DX: N62 Hypertrophy of breast (principal)
CPT/HCPCS: 76870

== ENCOUNTER → 2025-02-26 14:49 | Outpatient (BNV) | payer OTHER, SELFPAY | PROVIDERS: PCP Family Medicine; Visit Provider Radiology Diagnostic Radiology | DX: Z87.438 Personal history of other diseases of male genital organs (principal) | CPT/HCPCS: 76870; 93976 ==